=== PATIENT | male | born 1950 | race Caucasian/White ===

== ENCOUNTER 2019-12-05 16:58 | Inpatient (IN) | payer MEDICARE, OTHER, SELFPAY ==
[2019-12-05] VITALS (18 sets, daily range): BP systolic 115–222; BP diastolic 83–145; PULSE 105–151; RESP 20–31; TEMP 36.5–38.3; O2SAT 92–98
--- NOTE | ~2019-12-05 | XR_ITS ---
EXAMINATION: XR lumbar puncture diagnostic DATE: 12/07/2019 15:41 INDICATION: Altered mental status. Fever. TECHNIQUE: A timeout was performed to verify the patient's name, date of , and procedure to be performed. The skin overlying the L2-L3 level was prepped and draped in usual sterile fashion. Sub cutaneous 1% lidocaine was used for local anesthesia. A 20 gauge spinal needle was advanced under fl uoroscopic guidance. The needle was removed and the entry site was cleaned and dressed. There were n o immediate complications. Fluoroscopy exposure time was 0.0 minutes. The total number of images was 1. FINDINGS: Real-time fluoroscopy demonstrates the needle at the L2-L3 level. The opening pressure was 14 cm water (Normal range is variably defined as 6-20 cm water and up to 25 cm water in obese patient s. Pressure >25 cm water is one of the modified Dandy criteria for idiopathic intracranial hypertensi on). 14 mL of clear, colorless fluid was collected in 4 tubes. IMPRESSION: 1. Successful fluoro-guided lumbar puncture. Reviewed, dictated and finalized at location A.
--- NOTE | ~2019-12-05 | US_ITS ---
EXAMINATION: US carotid duplex BI DATE: 12/09/2019 15:59 INDICATION: Stroke with speech and language deficit. TECHNIQUE: Grayscale, color Doppler, and pulsed Doppler images of the cervical carotid arteries were obtained. The degree of vessel stenosis is placed in one of the following categories: normal, <50%, 5 0-69%, >=70% but less than near-occlusion, near-occlusion, or total occlusion. Note that percent sten osis relative to normal distal artery lumen diameter is indirectly measured from velocity measurement s as described by Heath, et al. Radiology 2003; 229:340-346. COMPARISON: None. FINDINGS: Cardiac arrhythmias present. RIGHT: The right common carotid artery (CCA) peak systolic velocity (PSV) is 86 cm/s. The right internal car otid artery (ICA) PSV is 61 cm/s. The right ICA end-diastolic velocity (EDV) is 24 cm/s. The right IC A/CCA PSV ratio is 0.7. Grayscale and color Doppler images yield an estimate of <50% diameter reducti on from plaque in the ICA. The external carotid artery (ECA) PSV is 71 cm/s. There is antegrade flow in the right vertebral artery. LEFT: The left CCA PSV is 90 cm/s. The left ICA PSV is 68 cm/s. The left ICA EDV is 32 cm/s. The left ICA/C CA PSV ratio is 0.8. Grayscale and color Doppler images yield an estimate of <50% diameter reduction from plaque in the ICA. The ECA PSV is 59 cm/s. There is antegrade flow in the left vertebral artery. IMPRESSION: 1. <50% stenosis in the right internal carotid artery. 2. <50% stenosis in the left internal carotid artery. Reviewed, dictated and finalized at location B.
--- NOTE | ~2019-12-05 | MR_ITS ---
EXAMINATION: MR brain/brain stem wo con DATE: 12/06/2019 15:33 INDICATION: Altered mental status. TECHNIQUE: Magnetic resonance imaging (MRI) of the brain and brainstem was performed without intraven ous contrast. Sequences included sagittal and axial T1-weighted FSE, axial diffusion-weighted FS EPI, axial T2*-weighted GRE, and axial T2-weighted Propeller. The patient was combative and further imagi ng could not be performed. Apparent diffusion coefficient (ADC) maps were created. COMPARISON: Head CT 12/05/2019 FINDINGS: Motion artifact is noted. There are old infarcts involving the bilateral thalami, bilateral basal ganglia, and yoanna. There are acute infarcts involving the posterior left frontal lobe and left temporal occipital region. There are scattered areas of nonspecific increased T2-weighted signal int ensity in the cerebral white matter. There is no intracranial hemorrhage or abnormal mass lesion. The re is mild ex vacuo dilatation of body of right lateral ventricle. The orbits are normal. The mastoid air cells are normal. IMPRESSION: 1. Acute infarcts involving the posterior left frontal lobe and left temporal occipital region. Sensi tivity and specificity are decreased by motion artifact. 2. Old infarcts involving the bilateral thalami, bilateral basal ganglia, and yoanna. 3. Mild nonspecific cerebral white matter disease, which likely represents chronic small vessel ische robbin disease. Reviewed, dictated and finalized at location A. IMPRESSION: 1. Acute infarcts involving the posterior left frontal lobe and left temporal o ccipital region. Sensitivity and specificity are decreased by motion artifact. 2. Old infarcts involving the bilateral thalami, bilateral basal ganglia, and p ons. 3. Mild nonspecific cerebral white matter disease, which likely represents breeding technician jyoti small vessel ischemic disease.
--- NOTE | ~2019-12-05 | XR_ITS ---
XR chest PICC line DATE: 12/06/2019 16:28 INDICATION: PICC line placement TECHNIQUE: Portable AP chest 12/06/2019 at 1617 hours COMPARISON: 12/05/2019 portable AP chest FINDINGS: Right upper extremity PIC catheter tip overlies the proximal superior vena cava. No pneumot horax. There are infiltrates and/atelectasis primarily in the lower lung zones. Aortic calcification. Evaluation is limited due to rotation of patient. IMPRESSION: Right upper extremity PIC catheter tip overlying proximal superior vena cava Reviewed, dictated and finalized at Location A. Reviewed, dictated and finalized at location A.
--- NOTE | ~2019-12-05 | CT_ITS ---
EXAMINATION: CT brain wo con DATE: 12/05/2019 17:44 INDICATION: Altered mental status TECHNIQUE: Computed tomography (CT) of the head was performed without intravenous contrast. The mA wa s adjusted according to patient size. Iterative reconstruction technique was employed. Exam dose: 68 1.00 mGy-cm total exam DLP. COMPARISON: None FINDINGS: There are right basal ganglia and periventricular chronic lacunar infarcts. There is cerebral atherosclerosis and chronic small vessel ischemic changes of the periventricular wh ite matter. No intracranial mass lesion or hemorrhage or recent cerebrovascular accident is evident. No midline shift or mass effect. No subdural or epidural hematoma. No fracture or bone destruction of the cranial vault. Included paranasal sinuses and mastoid air mitul ls are normally aerated. IMPRESSION: Cerebral atherosclerosis and chronic small vessel ischemic changes of the cerebral white matter Chronic right basal ganglia and periventricular lacunar infarcts Reviewed, dictated and finalized at Location A. Reviewed, dictated and finalized at location A.
--- NOTE | ~2019-12-05 | XR_ITS ---
XR chest 1V portable DATE: 12/05/2019 18:49 INDICATION: Transient alteration of awareness. Hypoglycemia. TECHNIQUE: Portable AP chest on 12/05/2019 at 1843 hours COMPARISON: 11/15/2018 PA and lateral chest FINDINGS: Cardiomegaly. Aortic calcification and ectasia. There is pulmonary vascular congestion. Chronic mild left pleural thickening. Chronic left costophrenic angle blunting. There is suggestion of mild left retrocardiac infiltrate and/atelectasis; no interval pulmonary infil trate or consolidation is evident. IMPRESSION: Mild left lower lobe infiltrate or atelectasis is suggested Cardiomegaly Aortic atherosclerosis Reviewed, dictated and finalized at location A.
[2019-12-05 17:04] LABS: Glucose Point of Care > 500 (65-105)
--- NOTE | 2019-12-05 17:05 | ECG_ITS ---
Measurements Intervals [place] Rate: 125 P: IA: 0 QRS: -10 QRSD: 118 T: 131 QT: 314 QTc: 453 Interpretive Statements ATRIAL FIBRILLATION WITH RAPID VENTRICULAR RESPONSE INTRAVENTRICULAR CONDUCTION DELAY VOLTAGE CRITERIA FOR LVH BORDERLINE ST-T WAVE ABNORMALITY- LAT/HIGH LAT LEADS ABNORMAL ECG Electronically Signed On 12-06-2019 7:00:35 CDT by Jorge Mazariegos D.O.
--- NOTE | 2019-12-05 17:07 | ED.AMS ---
HPI - Altered Mental Status General Chief Complaint: Altered Mental Status Stated Complaint: ams Time Seen by Provider: 12/05/19 17:07 Source: patient and EMS Mode of arrival: EMS Limitations: altered mental status History of Present Illness HPI narrative: Patient is a 69-year-old male with a history of atrial fibrillation, recent ablation at [facility], CHF, nephrolithiasis, who presents for evaluation of altered mental status. History is provided only by the as the patient is not altered to person, place, and or to time. Patient is not able to follow any simple commands. Patient's states that he did not eat or drink anything this morning, was not conversing with her, she thought perhaps he was tired, and he went to lay down to take a nap. When she checked on him approximately 1 hour later, he was sitting on the floor of the steps had urinated on himself, and was unable to stand. She is finally able to help him to stand up to get him to a chair in the office, because he was not responding appropriately to her, not able to speak to her, she called EMS. Glucose reading was high for EMS. Per patient's , he has no history of diabetes. Related Data Home Medications Medication Instructions Recorded Confirmed apixaban [Eliquis] 5 mg PO BID 12/05/19 benazepril 40 mg PO DAILY 12/05/19 carvedilol 25 mg PO BID 12/05/19 furosemide 40 mg PO DAILY 12/05/19 Allergies Allergy/AdvReac Type Severity Reaction Status Date / Time oxycodone Allergy Mild Unknown Verified 12/05/19 17:03 tramadol Allergy Mild Unknown Verified 12/05/19 17:03 Review of Systems Review of Systems: ROS unobtainable: Yes unobtainable due to mental status PMFSH Past Medical History Medical History Atrial fibrillation Cataracts, bilateral Hypertension Nephrolithiasis Surgical History Surgical History H/O cardiac radiofrequency ablation Family History Family History (Updated 12/05/19 @ 21:37 by Emanuel Austin MD) Mother Diabetes mellitus Exam Narrative: Exam Narrative: GENERAL: Eyes open on bed, tremulous HEAD: Normocephalic, atraumatic. EYES: 2+ PERRLA and EOMI. Not able to track. Not able to assess extraocular movements. ENT: Nares clear, no rhinorrhea or epistaxis. Mucous membranes dry NECK: Supple. CHEST: Tachypneic, coarse breath sounds bilaterally HEART: Tachycardic rate, regular rhythm ABDOMEN:Non distended, no grimace with palpation EXTREMITIES: Normal range of motion. No pitting edema. SKIN: Warm, dry, no rash. NEURO: Patient has spontaneous movement of the upper and lower extremities. Is not able to follow any simple commands. No noticeable facial droop. Grimace does appear symmetric. Not able to assess upper or lower extremity strength. Patient has no clonus. No hyperreflexia. Course Vital Signs Vital signs: Vital Signs Temperature 36.5 C 12/05/19 16:53 Pulse Rate 105 H 12/05/19 16:53 Respiratory Rate 20 12/05/19 16:53 Blood Pressure 222/145 H 12/05/19 16:53 Pulse Oximetry 95 12/05/19 16:53 Temperature 36.9 C 12/05/19 21:46 Pulse Rate 121 H 12/05/19 21:46 Respiratory Rate 26 H 12/05/19 21:46 Blood Pressure 191/89 H 12/05/19 21:46 Pulse Oximetry 97 12/05/19 21:46 MDM - Altered Mental Status MDM Narrative Medical decision making narrative: Patient presented for evaluation of altered mental status, found to have elevated glucose readings by EMS. No known history of diabetes per family at bedside. At time of assessment, patient is awake, delirious. He is protecting his airway. He is tachycardic and tachypneic. No severe respiratory distress. Patient is dehydrated appearing. Tocometer also rates as high. Very concerning for HHS presentation here. IV access obtained, labs and blood cultures were drawn. Patient was given a 30 mL/kg fluid bolus which is over
[2019-12-05] MEDS: SODIUM CHLORIDE 0.9% IV 1,000 ML 999 ML IV CONT ×2 (17:22→18:00)
[2019-12-05 17:40] LABS: Basophils Absolute Auto 0.1 K/mm3 (0.0-0.1); Basophils Percent Auto 0.7 % (0.2-1.2); Hematocrit 48.4 % (42.0-52.0); Hemoglobin 16.8 g/dL (14.0-18.0); Immature Granulocyte Absolute 0.05 K/mm3 (0.00-0.031); Immature Granulocyte Percent A 0.5 % (0-0.5); Lymphocytes Absolute Auto 0.51 K/mm3 (0.9-3.2); Lymphocytes Percent Auto 5.5 % (18.3-44.2); Mean Corpuscular HGB Conc 34.7 g/dl (32-36); Mean Corpuscular Hemoglobin 31.1 pg (26-34); Mean Corpuscular Volume 89.6 fl (80-100); Mean Platelet Volume 11.9 fl (7.4-10.4); Monocytes Absolute Auto 0.5 K/mm3 (0.1-0.6); Monocytes Percent Auto 5.7 % (2.6-8.5); Neutrophils Absolute Auto 8.1 K/mm3 (1.3-6.7); Neutrophils Percent Auto 87.6 % (45.5-73.1); Platelet Count Result 200 k/mm3 (150-375); Red Cell Distribution Width 14.3 % (11.5-14.5); White Blood Count 9.2 K/mm3 (4.5-10.0)
[2019-12-05 17:48] LABS: INR 1.1; Prothrombin Time 13.9 Seconds (11.1-14.7)
[2019-12-05 17:49] LABS: Partial Thromboplastin Time 21.3 SECONDS (22.3-36.8)
[2019-12-05] MEDS: LACTATED RINGERS 1,000 ML 999 ML IV CONT (18:00)
[2019-12-05 18:11] LABS: Lactic Acid Reflex 5.1 mmol/L (0.7-2.1)
[2019-12-05 18:16] LABS: NT Pro B Type Natriuretic Pept 2850 PG/ML (5-100); Troponin I < 0.012 ng/mL (0.000-0.034)
[2019-12-05 18:19] LABS: Beta-Hydroxybutyrate/Acetoacetate 0.34 mmol/L (0.02-0.27)
[2019-12-05 18:30] LABS: Alveolar/Arterial O2 Gradient 42.8 mmHg; Base Excess ABG -6.7 mEq/l (+/-2.0); Carboxyhemoglobin 2.1 % THb (0-2.0); Fractional Inspired Oxygen 21 %; HCO3 ABG 16.3 mEq/l (22.0-26.0); Methemoglobin ABG 0.1 %THb (0-1.5); Oxygen Content ABG 20.8 %vol (16.0-22.0); Oxygen Saturation ABG 95.3 % (95.0-100.0); Oxyhemoglobin 92.3 % THb (90.0-100.0); PCO2 ABG 26.9 mmHg (35.0-45.0); PO2 ABG 74.7 mmHg (80.0-100.0); PO2 FiO2 Ratio Arterial Blood 3.56 %; Reduced Hemoglobin 5.5 %THb (0-5.0); pH ABG 7.399 (7.350-7.450)
[2019-12-05 18:32] LABS: Device ROOM AIR; Modified Allen's Test Pass; Site Drawn LEFT RADIAL
[2019-12-05 18:40] LABS: Add Urine Microscopic? YES; Appearance Urine Clear (Clear); Bilirubin Urine Negative (Negative); Blood Urine 2+ (Negative); Color Urine Straw (Yellow); Glucose Urine UA 3+ mg/dL (Negative); Ketones Urine Negative (Negative); Leukocyte Esterase Ur Negative LEU/UL (Negative); Nitrate Urine Negative (Negative); Protein Urine 2+ mg/dL (Negative); RBC Urine 21-50 /hpf (0-2); Specific Grav Ur 1.027 (1.001-1.035); Urobilinogen Urine Negative mg/dL (<2.0); WBC Urine 0-3 /hpf
[2019-12-05 18:57] LABS: Alanine Aminotransferase 35 U/L (4-50); Albumin Level 4.8 g/dL (3.5-5.1); Alkaline Phosphatase 174 U/L (38-126); Anion Gap 17 mmol/L (8-16); Aspartate Amino Transferase 23 U/L (17-59); Bilirubin,Total 1.8 mg/dL (0.2-1.3); Blood Urea Nitrogen 26 mg/dL (9-20); Calcium 9.4 mg/dL (8.4-10.2); Carbon Dioxide 23 mmol/L (22-30); Chloride 94 mmol/L (98-107); Estimated CRCL calculation 51 ml/min; Estimated Glomerular Filt Rate 43; Magnesium 2.8 mg/dL (1.6-2.3); Phosphorus 2.6 mg/dL (2.5-4.5); Sodium 134 mmol/L (137-145)
[2019-12-05 19:04] LABS: Glucose Point of Care > 500 (65-105)
[2019-12-05] MEDS: INSULIN HUMAN REGULAR (*BKC) 100 UNITS/ML 11 UNITS IV PUSH (19:24)
[2019-12-05 19:35] LABS: Glucose 1168 mg/dL (75-110)
[2019-12-05] MEDS: INSULIN HUMAN REGULAR (*BKC) 100 UNITS in SODIUM CHLORIDE 0.9% IV 99 ML 8.8 UNITS IV CONT (19:49)
[2019-12-05] MEDS: METOPROLOL TARTRATE INJ 5 MG/5 ML VIAL IV PUSH (19:56)
[2019-12-05] MEDS: niCARdipine 20 MG/200 ML 20 MG/200 ML BAG 50 MG IV CONT (20:15)
[2019-12-05 20:16] LABS: Glucose Point of Care > 500 (65-105)
[2019-12-05 20:36] LABS: Reflex Lactic Acid Yes or No Add Lactic
--- NOTE | 2019-12-05 21:29 | PM.IMHP ---
H&P: HPI History of Present Illness Date/Time: 12/05/19 21:29 Chief complaint: HHS, Malignant hypertension, AMS, Sepsis Narrative: This is a 69-year-old male with known history of atrial fibrillation status post cardiac ablation a few weeks ago on chronic anticoagulation, congestive heart failure, and hypertension who presented to the hospital after being found to have altered mental status by his today. The patient's who is at bedside states that the patient was very quiet today and did not want to eat breakfast this morning. She mentions that it is common for him to take naps in the afternoon so when he went to lay down she thought that was normal. When she went to check on him she found him sitting on the steps, diaphoretic, and had urinated on himself. The patient was not responding to her appropriately or answering questions. EMS was called and the patient was brought to the hospital and found to be severely hyperglycemic. The patient has no previous history of diabetes mellitus. Routine labs were obtained which demonstrated a blood glucose of 1168. Lactic acid came back at 5.1. The patient was also found to be in rapid atrial fibrillation with a heart rate in the 130s to 140s. he was also found to have severe hypertension with systolic blood pressures in the 220s over 130s. The patient was started on a Cardene drip for his severely elevated blood pressure and cardiology was consulted. Patient was given Lopressor IV for his atrial fibrillation with RVR. He was also treated with IV insulin and a 30 cc/kilogram normal saline bolus. The patient also received wide-spectrum antibiotics including vancomycin and cefepime as he met sepsis criteria and his lactic acid was 5.1. Head CT was performed which did not demonstrate any acute intracranial pathology. on my encounter with the patient he is obtain ended but arousable and clearly encephalopathic. He is not able to answer any of my questions at this time. Source of history is from his who is at bedside. On further questioning she also denies that the patient has had any recent fevers, cough, chest pain, palpitations, abdominal pain, nausea, vomiting, diarrhea, rectal bleeding, or other symptoms. Commercial Relief Driver has been consulted by ER provider. Review of Systems Review of Systems: ROS unobtainable: Yes unobtainable due to medical condition and unobtainable due to mental status [facility] Past Medical History Medical History Atrial fibrillation Cataracts, bilateral Hypertension Nephrolithiasis Surgical History Surgical History H/O cardiac radiofrequency ablation Family History Family History Mother Diabetes mellitus Social History Social History Smoking status: Unknown if ever smoked Meds Home Medications and Allergies Home Medications Medication Instructions Recorded Confirmed Type apixaban [Eliquis] 5 mg PO BID 12/05/19 History benazepril 40 mg PO DAILY 12/05/19 History carvedilol 25 mg PO BID 12/05/19 History furosemide 40 mg PO DAILY 12/05/19 History Allergies Allergy/AdvReac Type Severity Reaction Status Date / Time oxycodone Allergy Mild Unknown Verified 12/05/19 17:03 tramadol Allergy Mild Unknown Verified 12/05/19 17:03 Vital Signs Vital Signs - 24 hr 12/05/19 16:53 12/05/19 17:22 12/05/19 20:15 Temperature 36.5 C Pulse Rate 105 H 114 H 111 H Respiratory Rate 20 28 H Blood Pressure 222/145 H 188/135 H 200/124 H Pulse Oximetry 95 92 12/05/19 20:31 12/05/19 20:35 Temperature 37.2 C Pulse Rate 123 H 120 H Respiratory Rate 30 H Blood Pressure 168/84 H 168/84 H Pulse Oximetry 96 Exam Const: General: ill appearing acutely and patient obtunded Nutritional Appearance: well nourished [place]
--- NOTE | 2019-12-05 21:37 | ADMGEN ---
This patient, Jose A Rodarte, was admitted to Intensive Care Unit-6. Patient/family oriented to hospital policies and general routines including ID bracelet, bed and alarms, visiting hours, pain management, procedures, bathroom and other care routines, personal items, smoking policy, room service/diet, and visiting hours. Valuables list has been completed. Information on how to activate the Rapid Response Team has been discussed. Patient/Family are encouraged to report perceived risks to care and to ask questions if they do not understand what they are told or what they should do.
[2019-12-05] MEDS: SODIUM CHLORIDE 0.9% IV 1,000 ML 150 ML IV CONT (22:05)
[2019-12-05 22:37] LABS: Alveolar/Arterial O2 Gradient 49.3 mmHg; Base Excess ABG -4.9 mEq/l (+/-2.0); Device ROOM AIR; Fractional Inspired Oxygen 21 %; HCO3 ABG 17.1 mEq/l (22.0-26.0); Modified Allen's Test Pass; Oxygen Content ABG 21.1 %vol (16.0-22.0); Oxyhemoglobin 93.3 % THb (90.0-100.0); PCO2 ABG 25.6 mmHg (35.0-45.0); PO2 ABG 69.8 mmHg (80.0-100.0); PO2 FiO2 Ratio Arterial Blood 3.32 %; Site Drawn LEFT RADIAL; Total Hemoglobin 16.1 g/dL (12.0-18.0); pH ABG 7.443 (7.350-7.450)
[2019-12-05 23:29] LABS: Hemoglobin A1C 11.1 % (<5.7)
[2019-12-05 23:34] LABS: Lactic Acid 5.8 mmol/L (0.7-2.1)
[2019-12-05 23:35] LABS: Anion Gap 16 mmol/L (8-16); Blood Urea Nitrogen 18 mg/dL (9-20); Calcium 9.2 mg/dL (8.4-10.2); Carbon Dioxide 21 mmol/L (22-30); Chloride 109 mmol/L (98-107); Estimated CRCL calculation 58 ml/min; Estimated Glomerular Filt Rate 50; Glucose 518 mg/dL (75-110); Potassium 3.7 mmol/L (3.4-5.0); Sodium 146 mmol/L (137-145)
[2019-12-05 23:41] LABS: Troponin I 0.044 ng/mL (0.000-0.034)
[2019-12-05 23:48] LABS: Glucose Point of Care > 500 (65-105)
[2019-12-05 23:48] LABS: Glucose Point of Care > 500 (65-105)
[2019-12-06] VITALS (42 sets, daily range): BP systolic 104–202; BP diastolic 76–140; PULSE 73–145; RESP 12–31; TEMP 36.6–38.7; O2SAT 93–98; BMI 33.0
[2019-12-06 00:29] LABS: Glucose Point of Care 446 (65-105)
[2019-12-06] MEDS: AMIODARONE 150 MG/D5W 100 ML 150 MG/100 ML BAG 600 MG IV CONT (01:17)
[2019-12-06] MEDS: AMIODARONE 360 MG/D5W 200 ML 360 MG/200 ML BAG 33.3 MG IV CONT (01:18)
[2019-12-06 02:40] LABS: Glucose Point of Care 262 (65-105)
[2019-12-06 02:40] LABS: Glucose Point of Care 353 (65-105)
[2019-12-06] MEDS: INSULIN HUMAN REGULAR (*BKC) 100 UNITS in SODIUM CHLORIDE 0.9% IV 99 ML 14.1 UNITS IV CONT (02:42)
[2019-12-06 02:58] LABS: Anion Gap 11 mmol/L (8-16); Blood Urea Nitrogen 16 mg/dL (9-20); Calcium 9.2 mg/dL (8.4-10.2); Carbon Dioxide 25 mmol/L (22-30); Chloride 111 mmol/L (98-107); Estimated CRCL calculation 62 ml/min; Estimated Glomerular Filt Rate 55; Glucose 239 mg/dL (75-110); Potassium 3.1 mmol/L (3.4-5.0); Sodium 147 mmol/L (137-145)
[2019-12-06] MEDS: KCL 20 MEQ/D5/0.45% SOD CHL 1,000 ML 150 ML IV CONT (03:19)
--- NOTE | 2019-12-06 04:12 | PC.NURSE ---
Pt restless, pulling at cords, IVs, davis, attempting to sit himself up in bed and attempting to put legs over side of bed. Pt has been redirected by this RN several times. Pt is not alert and oriented at this time. Unable to be redirected. contacted for restraint order.
[2019-12-06 06:17] LABS: Basophils Absolute Auto 0.1 K/mm3 (0.0-0.1); Basophils Percent Auto 0.4 % (0.2-1.2); Hematocrit 42.7 % (42.0-52.0); Hemoglobin 15.4 g/dL (14.0-18.0); Immature Granulocyte Absolute 0.05 K/mm3 (0.00-0.031); Immature Granulocyte Percent A 0.4 % (0-0.5); Lymphocytes Absolute Auto 1.04 K/mm3 (0.9-3.2); Lymphocytes Percent Auto 7.5 % (18.3-44.2); Mean Corpuscular HGB Conc 36.1 g/dl (32-36); Mean Corpuscular Hemoglobin 31.3 pg (26-34); Mean Corpuscular Volume 86.8 fl (80-100); Mean Platelet Volume 11.3 fl (7.4-10.4); Monocytes Absolute Auto 1.3 K/mm3 (0.1-0.6); Monocytes Percent Auto 9.5 % (2.6-8.5); Neutrophils Absolute Auto 11.4 K/mm3 (1.3-6.7); Neutrophils Percent Auto 82.2 % (45.5-73.1); Platelet Count Result 192 k/mm3 (150-375); Red Blood Count 4.92 M/mm3 (4.6-6.20); Red Cell Distribution Width 14.1 % (11.5-14.5); White Blood Count 13.8 K/mm3 (4.5-10.0)
[2019-12-06 06:29] LABS: Lactic Acid Reflex 2.7 mmol/L (0.7-2.1)
[2019-12-06 06:30] LABS: Anion Gap 11 mmol/L (8-16); Blood Urea Nitrogen 15 mg/dL (9-20); Calcium 8.8 mg/dL (8.4-10.2); Carbon Dioxide 22 mmol/L (22-30); Chloride 114 mmol/L (98-107); Estimated CRCL calculation 61 ml/min; Estimated Glomerular Filt Rate 55; Glucose 127 mg/dL (75-110); Potassium 3.2 mmol/L (3.4-5.0); Sodium 147 mmol/L (137-145)
[2019-12-06] MEDS: AMIODARONE 360 MG/D5W 200 ML 360 MG/200 ML BAG 16.7 MG IV CONT ×2 (06:56→17:44)
[2019-12-06 07:07] LABS: Glucose Point of Care 147 (65-105)
[2019-12-06 07:07] LABS: Glucose Point of Care 200 (65-105)
[2019-12-06 07:07] LABS: Glucose Point of Care 218 (65-105)
[2019-12-06 07:07] LABS: Glucose Point of Care 220 (65-105)
[2019-12-06 07:07] LABS: Glucose Point of Care 182 (65-105)
[2019-12-06 07:31] LABS: Bilirubin Indirect 0.8 mg/dL (0-1.1)
--- NOTE | 2019-12-06 09:10 | WPDCNINT ---
Assessment and Plan Assessment and plan (1) Acute encephalopathy: Code(s): G93.40 - Encephalopathy, unspecified Status: Acute Assessment and Plan: most likely multifactorial and no clear etiology at this time. multiple possible diagnosis like DKA, sepsis, PRES head CT was negative on presentation although patient on clinical exam does not appear to have meningitis but the fact that he is febrile and has altered mental status exam can be unreliable, I will empirically treat him with antibiotics. check MRI LP ordered by radiology empiric vancomycin Rocephin and ampicillin (2) DKA (diabetic ketoacidoses): Qualifiers: Diabetes mellitus complication detail: without coma Diabetes mellitus type: type 2 Qualified Code(s): E11.10 - Type 2 diabetes mellitus with ketoacidosis without coma Code(s): E11.10 - Type 2 diabetes mellitus with ketoacidosis without coma Status: Acute Assessment and Plan: patient on insulin infusion and anion gap has closed. Is on D5 half-normal saline I will stop the dextrose solution and continues insulin drip at this time patient not ready to transition to subcutaneous insulin as he is on a high rate serial labs (3) Hypertensive emergency: Code(s): I16.1 - Hypertensive emergency Status: Acute Assessment and Plan: currently on Cardene infusion I will switch him to diltiazem to control heart rate and blood pressure this same time (4) Atrial fibrillation with rapid ventricular response: Code(s): I48.91 - Unspecified atrial fibrillation Status: Acute Assessment and Plan: currently on amiodarone infusion will add Cardizem drip Eliquis is on hold because of potential LP (5) Dehydration: Code(s): E86.0 - Dehydration Status: Acute Assessment and Plan: continue IV hydration but will decrease the rate (6) Severe sepsis: Code(s): A41.9 - Sepsis, unspecified organism; R65.20 - Severe sepsis without septic shock Status: Acute Assessment and Plan: no clear source at this time pneumonia versus meningitis or lactic acidosis could be from dehydration and hypovolemia check cultures continue empiric antibiotics (7) Suspected 2019 novel coronavirus infection: Code(s): Z20.828 - Contact with and (suspected) exposure to other viral communicable diseases Status: Acute Assessment and Plan: COVID-19 suspected. SARS-CoV-2 PCR sent and results pending Patient is in Airborne, Droplet and Contact Isolation Additional Plan DVT prophylaxis - subcu Lovenox Nutrition - NPO Code Status - patient unable to participate. Full Code documented in chart Discussed with Dr. Urban Total Critical Care Time - 40 minutes Due to a high probability of clinically significant, life threatening deterioration, the patient required my highest level of preparedness to intervene emergently and I personally spent this critical care time directly and personally managing the patient. This critical care time included obtaining a history; examining the patient; pulse oximetry; ordering and review of studies; arranging urgent treatment with development of a management plan; evaluation of patient's response to treatment; frequent reassessment; and discussions with other providers. It was exclusive of separately billable procedures and treating other patients and teaching time. Please see Assessment and Plan section and the rest of the note for further information on patient assessment and treatment Service Technician Consult Note Consult date: 12/06/19 Time Seen: 08:00 HPI: Jose A Rodarte is a 69 year old male with past medical history of atrial fibrillation status post cardiac ablation a few weeks ago on chronic anticoagulation, congestive heart failure, and hypertension who presented to the hospital after being found to have altered mental status by his today. The patient's told the
[2019-12-06 09:15] LABS: Reflex Lactic Acid Yes or No Add Lactic
--- NOTE | 2019-12-06 09:44 | PM.CNCAR ---
Assessment and Plan Assessment and plan (1) Atrial fibrillation with rapid ventricular response: Code(s): I48.91 - Unspecified atrial fibrillation Status: Acute Assessment and Plan: history of persistent recurrent atrial fibrillation status post PVI ablation January 2019 now with recurrence of AFib with RVR in setting of presumed new diagnosis diabetes mellitus DKA, sepsis, hypertensive urgency, febrile and encephalopathy. Discussed options with Critical Care. Continue Amiodarone gtt for now, additional HR control with IV Metoprolol. 5mg IV q6hr. Hold off on Dilt gtt unless BP anticipated to be adequately controlled and HR refractory. Pt has previously failed Sotalol and Flecainide necessitating PVI ablation. 2D Echo when HR better controlled to assess LV function, valve pathology, pulmonary pressures. (2) Hypertensive emergency: Code(s): I16.1 - Hypertensive emergency Status: Acute Assessment and Plan: Controlled on Nicardipine gtt. Wean off as BP permits, but anticipate will require at least low dose for now. (3) Acute encephalopathy: Code(s): G93.40 - Encephalopathy, unspecified Status: Acute Assessment and Plan: Per Critical Care. Caution with LP on anticoagulation, allow sufficient time to reduce bleeding risk. Continue supportive (4) Elevated troponin: Code(s): R77.8 - Other specified abnormalities of plasma proteins Status: Acute Assessment and Plan: No documented history of CAD. Very likely Type II infarction (non-[place] troponin elevation) in setting of fever, DKA, hypertensive urgency, underlying CKD, and A.fib with RVR. No evidence thus far for acute plaque rupture/ACS. (5) DKA (diabetic ketoacidoses): Qualifiers: Diabetes mellitus complication detail: without coma Diabetes mellitus type: type 2 Qualified Code(s): E11.10 - Type 2 diabetes mellitus with ketoacidosis without coma Code(s): E11.10 - Type 2 diabetes mellitus with ketoacidosis without coma Status: Acute Assessment and Plan: Per Critical Care. (6) Severe sepsis: Code(s): A41.9 - Sepsis, unspecified organism; R65.20 - Severe sepsis without septic shock Status: Acute Assessment and Plan: As above, IVF, IV ABx, cultures. COVID pending. On isolation. History of Present Illness History of Present Illness Consult date/time: Date of service: 12/06/19 09:44 Cardiology consultation at the request of Dr. Catalan of the [place] [facility] for our opinion regarding atrial fibrillation with RVR. Requesting physician: Rebecca Catalan MD Consult reason: atrial fibrillation Reason For Visit: HHS, Malignant hypertension, AMS, Sepsis Narrative: Patient is a 69-year-old white male with a past medical history significant for atrial fibrillation with rapid ventricular response, prior history of cardioversion having previously failed sotalol and flecainide requiring amiodarone for maintenance, on Eliquis, status post PVI ablation for atrial fibrillation January 30 2019 at [facility] which was successful in maintaining sinus rhythm. Patient has a history of remote cardiomyopathy with improvement in EF 65%, history of decompensated diastolic heart failure with atrial fibrillation with RVR, and hypertension who was brought to the ER by the patient's for altered mental status. Per electronic medical record she reported patient was very quiet day presentation, not eating and sleeping quite a bit. When she went to check on him she found him sitting on the steps, diaphoretic and incontinent of urine. He was not responding appropriately to her questions and called EMS. Upon his arrival was found to be markedly hyperglycemic blood sugar of 1168, lactic acid 5.1 hypertensive urgency with blood pressures 220/1 30s and in atrial fibrillation with rapid ventricular response heart rate 130 to 140s. He was given 1 IV dose metoprolol IV 5 mg. Given his mar
[2019-12-06] MEDS: SODIUM CHLORIDE 0.45% 1,000 ML 75 ML IV CONT ×2 (10:02→23:45)
[2019-12-06] MEDS: METOPROLOL TARTRATE INJ 5 MG/5 ML VIAL IV PUSH ×2 (10:10→22:14)
[2019-12-06] MEDS: AMPICILLIN 2 GM/NS 100 ML 2 GM/100 ML BAG IVPB ×4 (10:30→22:25)
[2019-12-06 10:51] LABS: Lactic Acid 3.6 mmol/L (0.7-2.1)
[2019-12-06] MEDS: INSULIN HUMAN REGULAR (*BKC) 100 UNITS in SODIUM CHLORIDE 0.9% IV 99 ML 13.2 UNITS IV CONT (10:59)
[2019-12-06 11:04] LABS: Glucose Point of Care 164 (65-105)
[2019-12-06 11:04] LABS: Glucose Point of Care 180 (65-105)
[2019-12-06 11:04] LABS: Glucose Point of Care 138 (65-105)
[2019-12-06 11:21] LABS: Anion Gap 13 mmol/L (8-16); Blood Urea Nitrogen 13 mg/dL (9-20); Calcium 8.3 mg/dL (8.4-10.2); Carbon Dioxide 21 mmol/L (22-30); Chloride 107 mmol/L (98-107); Estimated CRCL calculation 66 ml/min; Estimated Glomerular Filt Rate 60; Glucose 226 mg/dL (75-110); Potassium 3.3 mmol/L (3.4-5.0); Sodium 141 mmol/L (137-145)
[2019-12-06 11:50] LABS: Glucose Point of Care 227 (65-105)
--- NOTE | 2019-12-06 13:04 | WPDNEURCNPN ---
Assessment and Plan Assessment and plan (1) Severe sepsis: Code(s): A41.9 - Sepsis, unspecified organism; R65.20 - Severe sepsis without septic shock Status: Acute (2) Atrial fibrillation with rapid ventricular response: Code(s): I48.91 - Unspecified atrial fibrillation Status: Acute (3) Hypertensive emergency: Code(s): I16.1 - Hypertensive emergency Status: Acute Additional Plan METABOLIC ENCEPHALOPATHY WITH THE POSSIBILITY OF THE PRESS WILL OBTAIN THE EEG AND THEN CONSIDER ACCORDINGLY Consult date: 12/06/19 Time Seen: 13:00 HPI: Jose A Rodarte is a 69 year old male HAS BEEN ADMITTED TO THE HOSPITAL FOR MALIGNANT HYPERTENSION WITH ACUTE MENTAL STATUS CHANGES AND SEPSIS IN ADDITION TO THE ONGOING HISTORY OF 1. ATRIAL FIBRILLATION FOR WHICH HE HAS UNDERGONE CARDIAC ABLATION FEW WEEKS AGO AND 2. HISTORY OF CHRONIC ANTICOAGULATION THERAPY 3. CONGESTIVE HEART FAILURE 4. HYPERTENSION PER THE INFORMATION AVAILABLE FROM THE PATIENT'S ON THE DAY OF ADMISSION HE WAS VERY QUIET SHE FOUND HIM SITTING ON THE STEPS DIAPHORETIC AND ALSO OBSERVATION OF URINATION ON HIMSELF HE WAS NOT RESPONDING APPROPRIATELY EMS WERE CALLED TO THE SCENE IN THE EMERGENCY ROOM HE WAS SEVERELY HYPERGLYCEMIC THOUGH HE HAD NO HISTORY OF DIABETES MELLITUS IN THE PAST HE WAS NOTED TO HAVE BLOOD SUGAR OF 1168 WITH LACTIC ACID OF 5.1, IN RAPID ATRIAL FIBRILLATION WITH HEART RATE OF 130S TO 140S ALONG WITH THE HYPERTENSION AND THE BLOOD PRESSURE OF 220/130 HE IMMEDIATELY RECEIVED CARDENE DRIP LOPRESSOR INTRAVENOUSLY FOR ATRIAL FIBRILLATION INSULIN AND BROAD-SPECTRUM ANTIBIOTICS. THE CT SCAN OF THE BRAIN DOCUMENTED CHRONIC SMALL-VESSEL ISCHEMIC CHANGES OF THE WHITE MATTER IN ADDITION TO THE CHRONIC RIGHT BASAL GANGLIAR AND PERIVENTRICULAR LACUNAR INFARCTS AT THIS STAGE HE IS RECEIVING VANCOMYCIN INSULIN AMIODARONE AMPICILLIN CEFTRIAXONE AND PRECEDEX. QUESTION IS RAISED REGARDING THE POSSIBILITY OF POSTERIOR REVERSIBLE ISCHEMIC ENCEPHALOPATHY AND SPINAL TAP Review of Systems Review of Systems: All systems reviewed & are unremarkable except as noted in HPI and below PMFSH Past Medical History Medical History Atrial fibrillation Cataracts, bilateral Hypertension Nephrolithiasis Surgical History Surgical History H/O cardiac radiofrequency ablation Family History Family History Mother Diabetes mellitus Social History Social History Smoking status: Unknown if ever smoked Meds Home Medications and Allergies Home Medications Medication Instructions Recorded Confirmed Type apixaban [Eliquis] 5 mg PO BID 12/05/19 12/06/19 History benazepril 40 mg PO DAILY 12/05/19 12/06/19 History carvedilol 25 mg PO BID 12/05/19 12/06/19 History furosemide 40 mg PO DAILY 12/05/19 12/06/19 History Allergies Allergy/AdvReac Type Severity Reaction Status Date / Time oxycodone Allergy Mild Unknown Verified 12/05/19 17:03 tramadol Allergy Mild Unknown Verified 12/05/19 17:03 Vital Signs Vital Signs - 24 hr 12/05/19 16:53 12/05/19 17:22 12/05/19 20:15 Temperature 36.5 C Pulse Rate 105 H 114 H 111 H Respiratory Rate 20 28 H Blood Pressure 222/145 H 188/135 H 200/124 H Pulse Oximetry 95 92 12/05/19 20:31 12/05/19 20:35 12/05/19 21:46 Temperature 37.2 C 36.9 C Pulse Rate 123 H 120 H 121 H Respiratory Rate 30 H 26 H Blood Pressure 168/84 H 168/84 H 191/89 H Pulse Oximetry 96 97 12/05/19 21:56 12/05/19 22:00 12/05/19 22:03 Temperature 38.0 C H Pulse Rate 115 H 130 H 135 H Respiratory Rate 31 H Blood Pressure 151/85 H 151/85 H Pulse Oximetry 95 12/05/19 22:24 12/05/19 22:31 12/05/19 22:46 Temperature Pulse Rate 151 H 122 H 117 H Respiratory Rate 28 H 27 H 23 H Blood Pres
[2019-12-06 13:29] LABS: Glucose Point of Care 193 (65-105)
[2019-12-06 16:19] LABS: Glucose Point of Care 125 (65-105)
[2019-12-06 16:57] LABS: Alveolar/Arterial O2 Gradient 49.5 mmHg; Base Excess ABG -1.4 mEq/l (+/-2.0); Device ROOM AIR; Fractional Inspired Oxygen 21 %; HCO3 ABG 21.6 mEq/l (22.0-26.0); Modified Allen's Test Pass; Oxygen Content ABG 18.7 %vol (16.0-22.0); PO2 ABG 61.9 mmHg (80.0-100.0); PO2 FiO2 Ratio Arterial Blood 2.95 %; Site Drawn RIGHT RADIAL; Total Hemoglobin 14.5 g/dL (12.0-18.0); pH ABG 7.448 (7.350-7.450)
[2019-12-06 17:52] LABS: Glucose Point of Care 119 (65-105)
--- NOTE | 2019-12-06 18:03 | PM.IMPN ---
Progress Note: A&P Assessment and Plan (1) Acute encephalopathy: Code(s): G93.40 - Encephalopathy, unspecified Status: Acute Assessment and Plan: Complicated medical problems HTN crisis V meningitis ABG looks good pt pulse oxs is good, pt moving in the room. Continue to monitor I do not think pt needs intubation yet. Continue to monitor apnea spells. (2) Hyperosmolar (nonketotic) coma: Code(s): E11.01 - Type 2 diabetes mellitus with hyperosmolarity with coma Status: Acute Assessment and Plan: The patient appears to have hyperosmolar nonketotic coma (3) Hypertensive emergency: Code(s): I16.1 - Hypertensive emergency Status: Acute Assessment and Plan: Continue Cardene IV drip (4) Atrial fibrillation with rapid ventricular response: Code(s): I48.91 - Unspecified atrial fibrillation Status: Acute Assessment and Plan: The patient has been started on Lopressor IV per Cardiology. (5) Dehydration: Code(s): E86.0 - Dehydration Status: Acute Assessment and Plan: Continue IV hydration and monitor urine output and vital signs closely. (6) Severe sepsis: Code(s): A41.9 - Sepsis, unspecified organism; R65.20 - Severe sepsis without septic shock Status: Acute Assessment and Plan: With tachycardia and elevated lactic acid of 5.1. (7) Hyperbilirubinemia: Code(s): E80.6 - Other disorders of bilirubin metabolism Status: Acute Assessment and Plan: We will check a total and indirect bilirubin in a.m.. (8) Suspected 2019 novel coronavirus infection: Code(s): Z20.828 - Contact with and (suspected) exposure to other viral communicable diseases Status: Acute Assessment and Plan: the patient has been swab for stover virus. Continue droplet isolation. Subjective Date/time seen: 12/06/19 18:03 Interval history: 69-year-old male with known history of atrial fibrillation status post cardiac ablation a few weeks ago on chronic anticoagulation, congestive heart failure, and hypertension who presented to the hospital after being found to have altered mental status by his today. Pt is having episodes of apnea. Covid is pending. Pt admitted for encephalopathy. possible meningitis pt is going to have a spinal tap. Review of Systems Review of Systems: ROS unobtainable: Yes unobtainable due to mental status Exam Const: Orientation/consciousness: confusion Limitations: altered mental status Neuro: Other: pt is moving arms and legs ,moving round, awake, alert Objective Data Vital Signs Vital Signs: Vital Signs - 24 hr 12/05/19 20:15 12/05/19 20:31 12/05/19 20:35 Temperature 37.2 C Pulse Rate 111 H 123 H 120 H Respiratory Rate 30 H Blood Pressure 200/124 H 168/84 H 168/84 H Pulse Oximetry 96 12/05/19 21:46 12/05/19 21:56 12/05/19 22:00 Temperature 36.9 C Pulse Rate 121 H 115 H 130 H Respiratory Rate 26 H Blood Pressure 191/89 H 151/85 H Pulse Oximetry 97 12/05/19 22:03 12/05/19 22:24 12/05/19 22:31 Temperature 38.0 C H Pulse Rate 135 H 151 H 122 H Respiratory Rate 31 H 28 H 27 H Blood Pressure 151/85 H 146/87 H 115/97 H Pulse Oximetry 95 97 98 12/05/19 22:46 12/05/19 23:01 12/05/19 23:07 Temperature 38.0 C H Pulse Rate 117 H 129 H Respiratory Rate 23 H 31 H Blood Pressure 161/83 H 161/83 H Pulse Oximetry 96 95 12/05/19 23:16 12/05/19 23:30 12/05/19 23:31 Temperature Pulse Rate 125 H 139 H Respiratory Rate 26 H 29 H Blood Pressure 158/103 H 172/89 H 172/89 H Pulse Oximetry 95 95 12/05/19 23:37 12/06/19 00:01 12/06/19 00:31 Temperature 38.3 C H 38.2 C H Pulse Rate 133 H 132 H Respiratory Rate 27 H 26 H Blood Pressure 163/76 H 165/92 H Pulse Oximetry 96 96 12/06/19 01:01 12/06/19 01:17 12/06/19 01:18 Temperature Pulse Rate 136 H 142 H 142 H Respiratory Rate 27 H Blood P
[2019-12-06 18:28] LABS: Anion Gap 9 mmol/L (8-16); Blood Urea Nitrogen 14 mg/dL (9-20); Calcium 8.3 mg/dL (8.4-10.2); Carbon Dioxide 25 mmol/L (22-30); Chloride 109 mmol/L (98-107); Estimated CRCL calculation 57 ml/min; Estimated Glomerular Filt Rate 50; Glucose 95 mg/dL (75-110); Potassium 2.9 mmol/L (3.4-5.0); Sodium 143 mmol/L (137-145)
[2019-12-06] MEDS: INSULIN HUMAN REGULAR (*BKC) 100 UNITS in SODIUM CHLORIDE 0.9% IV 99 ML IV CONT (18:43)
[2019-12-06 18:52] LABS: Glucose Point of Care 97 (65-105)
[2019-12-06] MEDS: ASPIRIN 300 MG SUPPOSITORY RECTAL (21:08)
--- NOTE | 2019-12-06 21:48 | PHAR ---
INSULIN DRIP RATE CHANGE FROM 0 ONITS/HR TO 20 UNITS/HR VERIFIED WITH RN. GLUCOSE LEVEL WILL BE CHECKED IN 30 MINUTES.
[2019-12-06] MEDS: CENTRAL LINE FLUSH 10 ML IV PUSH (22:18)
[2019-12-06 23:05] LABS: Glucose Point of Care 230 (65-105)
[2019-12-06 23:05] LABS: Glucose Point of Care 211 (65-105)
[2019-12-06 23:05] LABS: Glucose Point of Care 230 (65-105)
[2019-12-07] VITALS (22 sets, daily range): BP systolic 122–173; BP diastolic 74–111; PULSE 46–131; RESP 12–24; TEMP 36.4–37.8; O2SAT 94–99
--- NOTE | 2019-12-07 | ECHO_ITS ---
Patient Info Name: Jose A Rodarte Age: 69 years : 1950 Gender: Male Ht: 72 in Wt: 252 lbs BSA: 2.45 m2 HR: 86 bpm BP: 152 / 92 mmHg Heart Rhythm: Atrial Fibrillation Technical Quality: Good Exam Date: 12/07/2019 2:09 PM Exam Location: [facility] Patient Status: Inpatient Admit Date: 12/05/2019 Staff Ordering Physician: Emanuel Austin MD Radiologic Therapist: Ant Worthington RDCS Attending Provider: Emanuel Austin MD Referring Physician: Norman YEE; Exam Type: CA echo doppler color flow Study Info Indications I48.1 - Persistent atrial fibrillation Complete two-dimensional, color flow and Doppler transthoracic echocardiogram is performed. History/Risk Factors Hypertension: Yes Cardiomyopathy/LV Systolic Dysfunction: Yes History/Risk Factors Atrial fibrillations; HTN. Summary 1. Complete two-dimensional, color flow and Doppler transthoracic echocardiogram is performed. 2. Left ventricular chamber dimension is mildly enlarged. 3. Left ventricular systolic function is normal, estimated at 65-70%. 4. There is moderately increased left ventricular wall thickness. 5. The left ventricular diastolic function is abnormal. 6. Left atrial chamber dimension is mildly enlarged. 7. There is mild to moderate mitral valve regurgitation. 8. There is mild tricuspid valve regurgitation. 9. Mild pulmonary hypertension, estimated pulmonary arterial systolic pressure is 37 mmHg. Left Ventricle Left ventricular chamber dimension is mildly enlarged. Left ventricular systolic function is normal, estimated at 65-70%. There is moderately increased left ventricular wall thickness. The left ventricular diastolic function is abnormal. Right Ventricle Right ventricular chamber dimension is normal. Right ventricular systolic function is normal. Left Atria Left atrial chamber dimension is mildly enlarged. Right Atria Right atrial chamber dimension is normal. Atrial Septum Intact interatrial septum visualized by color flow imaging. Aortic Valve The aortic valve is trileaflet. There is mild aortic valve sclerosis. There is no aortic valve stenosis. There is trace aortic valve regurgitation. Pulmonic Valve The pulmonic valve is normal. There is no pulmonic valve stenosis. There is trace pulmonic regurgitation. Mitral Valve The mitral valve has normal leaflets. There is no mitral valve stenosis. There is mild to moderate mitral valve regurgitation. Tricuspid Valve The tricuspid valve leaflets are normal. There is no significant tricuspid valve stenosis. There is mild tricuspid valve regurgitation. Mild pulmonary hypertension, estimated pulmonary arterial systolic pressure is 37 mmHg. Pericardium/Pleural The pericardium appears normal. There is trivial pericardial effusion. Inferior Vena Cava Normal inferior vena cava with >50% collapse upon inspiration consistent with elevated right atrial pressure, 10 mmHg. Aorta The aortic root size at the sinus of Valsalva is normal. The prox ascending aorta size is normal. Left Ventricular Outflow Tract Name Value Normal LVOT 2D LVOT Diameter 2.3 cm LVOT Doppler
[2019-12-07 00:28] LABS: Glucose Point of Care 154 (65-105)
[2019-12-07 01:06] LABS: Glucose Point of Care 114 (65-105)
[2019-12-07 01:21] LABS: Anion Gap 6 mmol/L (8-16); Blood Urea Nitrogen 14 mg/dL (9-20); Calcium 8.2 mg/dL (8.4-10.2); Carbon Dioxide 25 mmol/L (22-30); Chloride 110 mmol/L (98-107); Estimated CRCL calculation 66 ml/min; Estimated Glomerular Filt Rate 60; Glucose 115 mg/dL (75-110); Potassium 3.4 mmol/L (3.4-5.0); Sodium 141 mmol/L (137-145)
[2019-12-07 02:13] LABS: Glucose Point of Care 94 (65-105)
[2019-12-07] MEDS: AMPICILLIN 2 GM/NS 100 ML 2 GM/100 ML BAG IVPB ×6 (02:22→20:50)
[2019-12-07 03:19] LABS: Glucose Point of Care 186 (65-105)
[2019-12-07 04:23] LABS: Glucose Point of Care 97 (65-105)
[2019-12-07 04:31] LABS: Hematocrit 38.8 % (42.0-52.0); Hemoglobin 13.8 g/dL (14.0-18.0); Mean Corpuscular HGB Conc 35.6 g/dl (32-36); Mean Corpuscular Hemoglobin 31.1 pg (26-34); Mean Corpuscular Volume 87.4 fl (80-100); Mean Platelet Volume 11.4 fl (7.4-10.4); Platelet Count Result 183 k/mm3 (150-375); Red Blood Count 4.44 M/mm3 (4.6-6.20); Red Cell Distribution Width 14.2 % (11.5-14.5); White Blood Count 16.8 K/mm3 (4.5-10.0)
[2019-12-07 04:49] LABS: Alanine Aminotransferase 22 U/L (4-50); Albumin Level 3.6 g/dL (3.5-5.1); Alkaline Phosphatase 69 U/L (38-126); Anion Gap 10 mmol/L (8-16); Aspartate Amino Transferase 36 U/L (17-59); Bilirubin,Total 0.9 mg/dL (0.2-1.3); Blood Urea Nitrogen 14 mg/dL (9-20); Calcium 8.3 mg/dL (8.4-10.2); Carbon Dioxide 24 mmol/L (22-30); Chloride 111 mmol/L (98-107); Estimated CRCL calculation 61 ml/min; Estimated Glomerular Filt Rate 55; Glucose 86 mg/dL (75-110); Magnesium 2.2 mg/dL (1.6-2.3); Potassium 3.5 mmol/L (3.4-5.0); Sodium 145 mmol/L (137-145)
[2019-12-07] MEDS: INSULIN HUMAN REGULAR (*BKC) 100 UNITS in SODIUM CHLORIDE 0.9% IV 99 ML 5.9 UNITS IV CONT (05:00)
[2019-12-07] MEDS: AMIODARONE 360 MG/D5W 200 ML 360 MG/200 ML BAG 16.7 MG IV CONT (05:30)
[2019-12-07 06:44] LABS: Glucose Point of Care 119 (65-105)
[2019-12-07 06:44] LABS: Glucose Point of Care 167 (65-105)
[2019-12-07] MEDS: CENTRAL LINE FLUSH 10 ML IV PUSH ×3 (06:56→20:51)
[2019-12-07 07:04] LABS: Glucose Point of Care 144 (65-105)
--- NOTE | 2019-12-07 09:38 | WPDINTPN ---
Progress Note: A&P Assessment and Plan (1) Acute ischemic stroke: Code(s): I63.9 - Cerebral infarction, unspecified Status: Acute Assessment and Plan: patient with encephalopathy could CT scan on admission showed chronic right basal ganglia and periventricular lacunar infarct, small-vessel ischemic changes -- MRI on 12/06/2019 showed acute infarcts involving the posterior left frontal lobe and left temporal occipital region, sensitivity and specifically I decreased by motion artifact, old infarcts involving bilateral thalami, bilateral basal ganglia and yoanna, mild nonspecific cerebral white matter disease which likely represents chronic small vessel ischemic disease. - patient on aspirin - neurology following the patient - will have PT/ OT follow the patient along with speech therapy for swallow test (2) Acute encephalopathy: Code(s): G93.40 - Encephalopathy, unspecified Status: Acute Assessment and Plan: most likely multifactorial and no clear etiology at this time. multiple possible diagnosis like DKA, sepsis, PRES, stroke head CT was negative on presentation - patient started empiric antibiotics with vancomycin, ceftriaxone and ampicillin for meningitis, - Given his elevation in white count, fevers will have LP performed by interventional radiology - appreciate Neurology evaluation recommendation (3) DKA (diabetic ketoacidoses): Qualifiers: Diabetes mellitus complication detail: without coma Diabetes mellitus type: type 2 Qualified Code(s): E11.10 - Type 2 diabetes mellitus with ketoacidosis without coma Code(s): E11.10 - Type 2 diabetes mellitus with ketoacidosis without coma Status: Acute Assessment and Plan: patient on insulin infusion and anion gap has closed. - will transition to long-acting insulin, high-dose sliding scale insulin and Accu-Chek - will add Levemir (4) Hypertensive emergency: Code(s): I16.1 - Hypertensive emergency Status: Acute Assessment and Plan: currently off nicardipine infusion - on p.r.n. metoprolol, blood pressure is a much improved, will maintain blood pressures in 140-160 mmHg due to acute stroke (5) Atrial fibrillation with rapid ventricular response: Code(s): I48.91 - Unspecified atrial fibrillation Status: Acute Assessment and Plan: currently on amiodarone infusion, rate controlled, remains in AFib - p.r.n. med to - Eliquis is on hold because of potential LP (6) Dehydration: Code(s): E86.0 - Dehydration Status: Acute Assessment and Plan: continue maintenance IV hydration with normal saline at 75 mL/hour (7) Severe sepsis: Code(s): A41.9 - Sepsis, unspecified organism; R65.20 - Severe sepsis without septic shock Status: Acute Assessment and Plan: no clear source at this time, be related to pneumonia, meningitis - elevated lactic acid on admission, received adequate fluids, lactic acid trending down could be related from dehydration, hypovolemia - will check lactic acid - blood cultures pending - continue empiric antibiotics as above (8) Suspected 2019 novel coronavirus infection: Code(s): Z20.828 - Contact with and (suspected) exposure to other viral communicable diseases Status: Acute Assessment and Plan: COVID-19 suspected. SARS-CoV-2 PCR sent and results pending Patient is in Airborne, Droplet and Contact Isolation (9) DVT prophylaxis: Code(s): Z29.9 - Encounter for prophylactic measures, unspecified Status: Acute Assessment and Plan: DVT prophylaxis: SCDs will discuss with neurology regarding Lovenox since patient has had an acute stroke may wait until 48 hours Additional Plan patient more awake this morning, have speech to evaluate the patient for swallow test, currently NPO Code Status - patient unable to participate. Full Code documented in chart Total Critical Care Ti
[2019-12-07] MEDS: INSULIN DETEMIR 100 UNITS/ML 40 UNITS SUB-Q ×2 (10:19→21:27)
--- NOTE | 2019-12-07 10:35 | PM.PNCARD ---
Progress Note: A&P Assessment and Plan (1) Atrial fibrillation with rapid ventricular response: Code(s): I48.91 - Unspecified atrial fibrillation Status: Acute Assessment and Plan: history of persistent recurrent atrial fibrillation status post PVI ablation January 2019 now with recurrence of AFib with RVR in setting of presumed new diagnosis diabetes mellitus DKA, sepsis, hypertensive urgency, febrile and encephalopathy. Discussed options with Critical Care. DC IV amiodarone and switch him to amiodarone 200 mg p.o. b.i.d.. Replace potassium a little of greater 4.0. Additional HR control with IV Metoprolol. 5mg IV q6hr. 2D Echo when HR better controlled to assess LV function, valve pathology, pulmonary pressures. (2) Hypertensive emergency: Code(s): I16.1 - Hypertensive emergency Status: Acute Assessment and Plan: Wean nicardipine to off to off blood pressure is much better. (3) Acute encephalopathy: Code(s): G93.40 - Encephalopathy, unspecified Status: Acute Assessment and Plan: Per Critical Care. Caution with LP on anticoagulation, allow sufficient time to reduce bleeding risk. Continue supportive (4) Elevated troponin: Code(s): R77.8 - Other specified abnormalities of plasma proteins Status: Acute Assessment and Plan: No documented history of CAD. Very likely Type II infarction (non-MD troponin elevation) in setting of fever, DKA, hypertensive urgency, underlying CKD, and A.fib with RVR. No evidence thus far for acute plaque rupture/ACS. (5) DKA (diabetic ketoacidoses): Qualifiers: Diabetes mellitus complication detail: without coma Diabetes mellitus type: type 2 Qualified Code(s): E11.10 - Type 2 diabetes mellitus with ketoacidosis without coma Code(s): E11.10 - Type 2 diabetes mellitus with ketoacidosis without coma Status: Acute Assessment and Plan: Per Critical Care. (6) Severe sepsis: Code(s): A41.9 - Sepsis, unspecified organism; R65.20 - Severe sepsis without septic shock Status: Acute Assessment and Plan: As above, IVF, IV ABx, cultures. COVID pending. On isolation. Subjective Date/time seen: 12/07/19 10:35 Interval history: Reason for consult: encephalopathy, hypertensive urgency, acute stroke, DKA, AFib RVR requiring amiodarone Date of service 12/07/2019: Patient awake alert. Still in atrial fibrillation. Blood sugars are much better. Review of Systems Review of Systems: All systems reviewed & are unremarkable except as noted in HPI and below ROS unobtainable: Yes unobtainable due to medical condition and unobtainable due to mental status Constitutional: Constitutional: Reports as per HPI, Reports no additional constitutional complaints and Reports fever(s) Eyes: Eyes: Reports as per HPI and Reports no additional eye complaints ENT: Reports system reviewed and no additional complaints, except as documented and Reports as per HPI Cardiovascular: Cardiovascular: Reports as per HPI and Reports no additional cardiovascular complaints Respiratory: Respiratory: Reports as per HPI and Reports no additional respiratory complaints Gastrointestinal: Gastrointestinal: Reports as per HPI and Reports no additional gastrointestinal complaints Genitourinary: Genitourinary: Reports no additional male genitourinary complaints and Reports as per HPI Musculoskeletal: Musculoskeletal: Reports no additional musculoskeletal complaints and Reports as per HPI Integumentary/Breasts: Skin/Breast: Reports system reviewed and no additional complaints, except as docu and Reports as per HPI Neurologic: Reports system reviewed and no additional complaints, except as documented, Reports as per HPI and Reports confusion Psychiatric: Psychiatric: Reports no additional psychiatric complaints, Reports as per HPI and Reports confusion Endocrine: Endocrine: Reports no additional endocrine complaints and
[2019-12-07] MEDS: AMIODARONE HCL 200 MG TABLET PO ×2 (12:26→16:56)
[2019-12-07 14:08] LABS: SARS-CoV-2 RNA PCR Negative
--- NOTE | 2019-12-07 14:33 | PC.NURSE ---
Dr. Feldmanly notified of negative Covid results
[2019-12-07 15:51] LABS: Glucose CSF 51 mg/dL (40-70); Total Protein CSF 158 mg/dL (12-60)
--- NOTE | 2019-12-07 16:44 | PC.NURSE ---
This patient, Jose A Rodarte, was transferred to [212 ] on 12/07/19 at [facility]. Personal belongings sent with patient. Belongings list checked and signed with receiving [ ]. Report given to [Darlene Ramsey RN @ [facility] ]. Appropriate documentation sent with patient.
[2019-12-07 16:47] LABS: Glucose Point of Care 77 (65-105)
[2019-12-07 16:47] LABS: Glucose Point of Care 128 (65-105)
[2019-12-07 16:47] LABS: Glucose Point of Care 133 (65-105)
[2019-12-07 16:50] LABS: Appearance CSF Clear (Clear); CSF source CSF; Color CSF Colorless (Colorless); Lymphocytes CSF 5 % (40-80); Monocytes CSF 6 % (15-45); Neutrophils CSF 89 % (0-6); Nucleated Cell CSF 133 /uL (0-5); Red Blood Cell CSF 68 (0-2)
[2019-12-07 16:59] LABS: Glucose Point of Care 153 (65-105)
[2019-12-07 17:41] LABS: Glucose Point of Care 186 (65-105)
--- NOTE | 2019-12-07 18:22 | PM.IMPN ---
Progress Note: A&P Assessment and Plan (1) Acute encephalopathy: Code(s): G93.40 - Encephalopathy, unspecified Status: Acute Assessment and Plan: Complicated medical problems HTN crisis V meningitis ABG looks good pt pulse oxs is good, pt moving in the room. Continue to monitor I do not think pt needs intubation yet. Continue to monitor apnea spells. 12/07/19 18:22 patient is 69-year-old male with history of atrial fibrillation status post abaltion, patient was brought to the emergency department by his my is patient was more somnolent and confused was not able to communicate with her and was not providing any history, concern the patient may have stroke concern the patient may be septic and patient was also tested COVID-19 and it is negative, initial CT scan of the head did not show any acute injury however MRI of the brain today showed Acute infarcts involving the posterior left frontal lobe and left temporal occipital region. Sensitivity and specificity are decreased by motion artifact. patient is on full dose of aspirin patient is seen by neurologist further recommendation to follow, patient is also found to atrial fibrillation was started on amiodarone drip seen by cardiology and switch him over to amiodarone 200 mg b.i.d. rate is trending down, upon arrival patient was in DKA and was hydrated and was placed on IV infusion none blood sugars trending down anion gap is closed and patient on long-acting insulin will continue to monitor patient will need to see life skills educator once clinically stable. (2) Hyperosmolar (nonketotic) coma: Code(s): E11.01 - Type 2 diabetes mellitus with hyperosmolarity with coma Status: Acute Assessment and Plan: The patient appears to have hyperosmolar nonketotic coma (3) Hypertensive emergency: Code(s): I16.1 - Hypertensive emergency Status: Acute Assessment and Plan: Continue Cardene IV drip (4) Atrial fibrillation with rapid ventricular response: Code(s): I48.91 - Unspecified atrial fibrillation Status: Acute Assessment and Plan: The patient has been started on Lopressor IV per Cardiology. (5) Dehydration: Code(s): E86.0 - Dehydration Status: Acute Assessment and Plan: Continue IV hydration and monitor urine output and vital signs closely. (6) Severe sepsis: Code(s): A41.9 - Sepsis, unspecified organism; R65.20 - Severe sepsis without septic shock Status: Acute Assessment and Plan: With tachycardia and elevated lactic acid of 5.1. (7) Hyperbilirubinemia: Code(s): E80.6 - Other disorders of bilirubin metabolism Status: Acute Assessment and Plan: We will check a total and indirect bilirubin in a.m.. (8) Suspected 2019 novel coronavirus infection: Code(s): Z20.828 - Contact with and (suspected) exposure to other viral communicable diseases Status: Acute Assessment and Plan: the patient has been swab for stover virus. Continue droplet isolation. Additional Plan The patient will likely need at least 2 nights of inpatient medical therapy for his acute encephalopathy, HONC, and hypertensive emergency. I have spent over 34 minutes of critical care time with this patient tonight. Date of service was 12/05/2019 at 21:15 hrs. Subjective Date/time seen: 12/07/19 18:22 patient is 69-year-old male with history of atrial fibrillation status post abaltion, patient was brought to the emergency department by his my is patient was more somnolent and confused was not able to communicate with her and was not providing any history, concern the patient may have stroke concern the patient may be septic and patient was also tested COVID-19 and it is negative, initial CT scan of the head did not show any acute injury however MRI of the brain today showed Acute infarcts involving the posterior left frontal lobe and left temporal occipital region. Sen
[2019-12-07] MEDS: SODIUM CHLORIDE 0.45% 1,000 ML 75 ML IV CONT (20:11)
[2019-12-07 20:47] LABS: Glucose Point of Care 235 (65-105)
[2019-12-07] MEDS: INSULIN ASPART (*BKC) 100 UNITS/ML SUB-Q (21:26)
[2019-12-07] MEDS: METOPROLOL TARTRATE INJ 5 MG/5 ML VIAL IV PUSH (23:59)
[2019-12-08] VITALS (21 sets, daily range): BP systolic 126–178; BP diastolic 64–122; PULSE 38–140; RESP 18–22; TEMP 35.8–36.5; O2SAT 96–98
[2019-12-08] MEDS: AMPICILLIN 2 GM/NS 100 ML 2 GM/100 ML BAG IVPB ×6 (01:33→23:05)
[2019-12-08] MEDS: CENTRAL LINE FLUSH 10 ML IV PUSH ×3 (05:31→23:16)
[2019-12-08 05:59] LABS: Basophils Absolute Auto 0.1 K/mm3 (0.0-0.1); Eosinophils Absolute Auto 0.1 K/mm3 (0-0.3); Eosinophils Percent Auto 1.4 % (0-4.4); Hematocrit 37.8 % (42.0-52.0); Hemoglobin 13.1 g/dL (14.0-18.0); Immature Granulocyte Absolute 0.04 K/mm3 (0.00-0.031); Immature Granulocyte Percent A 0.4 % (0-0.5); Immature Platelet Fraction Pct 6.6 % (0.9-11.2); Lymphocytes Absolute Auto 0.88 K/mm3 (0.9-3.2); Lymphocytes Percent Auto 9.3 % (18.3-44.2); Mean Corpuscular HGB Conc 34.7 g/dl (32-36); Mean Corpuscular Volume 89.6 fl (80-100); Mean Platelet Volume 11.5 fl (7.4-10.4); Monocytes Absolute Auto 0.9 K/mm3 (0.1-0.6); Monocytes Percent Auto 9.4 % (2.6-8.5); Neutrophils Absolute Auto 7.4 K/mm3 (1.3-6.7); Neutrophils Percent Auto 78.5 % (45.5-73.1); Platelet Count Result 126 k/mm3 (150-375); Red Blood Count 4.22 M/mm3 (4.6-6.20); Red Cell Distribution Width 14.6 % (11.5-14.5); White Blood Count 9.5 K/mm3 (4.5-10.0)
[2019-12-08 06:19] LABS: Alanine Aminotransferase 19 U/L (4-50); Alkaline Phosphatase 59 U/L (38-126); Anion Gap 10 mmol/L (8-16); Aspartate Amino Transferase 23 U/L (17-59); Bilirubin,Total 0.8 mg/dL (0.2-1.3); Blood Urea Nitrogen 14 mg/dL (9-20); Calcium 7.8 mg/dL (8.4-10.2); Carbon Dioxide 22 mmol/L (22-30); Chloride 108 mmol/L (98-107); Estimated CRCL calculation 67 ml/min; Estimated Glomerular Filt Rate 60; Glucose 180 mg/dL (75-110); Magnesium 2.1 mg/dL (1.6-2.3); Potassium 3.3 mmol/L (3.4-5.0); Sodium 140 mmol/L (137-145)
[2019-12-08 08:27] LABS: Glucose Point of Care 160 (65-105)
[2019-12-08] MEDS: AMIODARONE HCL 200 MG TABLET PO ×2 (09:04→16:27)
[2019-12-08] MEDS: INSULIN DETEMIR 100 UNITS/ML 40 UNITS SUB-Q ×2 (09:06→20:18)
[2019-12-08] MEDS: POTASSIUM CHLORIDE 20 MEQ TABLET 40 MEQ PO (09:44)
[2019-12-08] MEDS: SODIUM CHLORIDE 0.45% 1,000 ML 75 ML IV CONT ×2 (10:37→23:05)
[2019-12-08] MEDS: METOPROLOL TARTRATE INJ 5 MG/5 ML VIAL IV PUSH (11:10)
--- NOTE | 2019-12-08 11:27 | PCPTNOTE ---
Attempted therapy session, held per RN. Pt's HR is elevated. RN requested therapy to try again after lunch. Will attempt therapy session again.
[2019-12-08 12:01] LABS: Glucose Point of Care 345 (65-105)
[2019-12-08] MEDS: INSULIN ASPART (*BKC) 100 UNITS/ML SUB-Q ×3 (12:26→20:17)
--- NOTE | 2019-12-08 14:48 | PM.PNCARD ---
Progress Note: A&P Assessment and Plan (1) Atrial fibrillation with rapid ventricular response: Code(s): I48.91 - Unspecified atrial fibrillation Status: Acute Assessment and Plan: history of persistent recurrent atrial fibrillation status post PVI ablation January 2019 now with recurrence of AFib with RVR in setting of presumed new diagnosis diabetes mellitus DKA, sepsis, hypertensive urgency, febrile and encephalopathy. carvedilol 25 mg p.o. b.i.d.. Hold Eliquis for another 24 hours since he had a lumbar puncture yesterday. (2) Hypertensive emergency: Code(s): I16.1 - Hypertensive emergency Status: Acute Assessment and Plan: blood pressure is high. carvedilol to be started as above. Restart benazepril if needed (3) Acute encephalopathy: Code(s): G93.40 - Encephalopathy, unspecified Status: Acute Assessment and Plan: LP performed yesterday. (4) Elevated troponin: Code(s): R77.8 - Other specified abnormalities of plasma proteins Status: Acute Assessment and Plan: No documented history of CAD. Very likely Type II infarction (non-IN troponin elevation) in setting of fever, DKA, hypertensive urgency, underlying CKD, and A.fib with RVR. No evidence thus far for acute plaque rupture/ACS. (5) DKA (diabetic ketoacidoses): Qualifiers: Diabetes mellitus complication detail: without coma Diabetes mellitus type: type 2 Qualified Code(s): E11.10 - Type 2 diabetes mellitus with ketoacidosis without coma Code(s): E11.10 - Type 2 diabetes mellitus with ketoacidosis without coma Status: Acute Assessment and Plan: per hospitalist (6) Severe sepsis: Code(s): A41.9 - Sepsis, unspecified organism; R65.20 - Severe sepsis without septic shock Status: Acute Assessment and Plan: On antibiotics Subjective Date/time seen: 12/08/19 14:48 Interval history: Reason for consult: encephalopathy, hypertensive urgency, acute stroke, DKA, AFib RVR requiring amiodarone Date of service 12/08/2019: Patient awakeAnd alert. Still in atrial fibrillation. no chest pain or shortness of breath. Review of Systems Review of Systems: All systems reviewed & are unremarkable except as noted in HPI and below Constitutional: Constitutional: Reports as per HPI and Reports fever(s) Eyes: Eyes: Reports as per HPI and Reports no additional eye complaints ENT: Reports system reviewed and no additional complaints, except as documented and Reports as per HPI Cardiovascular: Cardiovascular: Reports as per HPI and Reports no additional cardiovascular complaints Respiratory: Respiratory: Reports as per HPI and Reports no additional respiratory complaints Gastrointestinal: Gastrointestinal: Reports as per HPI and Reports no additional gastrointestinal complaints Genitourinary: Genitourinary: Reports no additional male genitourinary complaints and Reports as per HPI Musculoskeletal: Musculoskeletal: Reports no additional musculoskeletal complaints and Reports as per HPI Integumentary/Breasts: Skin/Breast: Reports system reviewed and no additional complaints, except as docu and Reports as per HPI Neurologic: Reports system reviewed and no additional complaints, except as documented, Reports as per HPI and Reports confusion Psychiatric: Psychiatric: Reports no additional psychiatric complaints, Reports as per HPI and Reports confusion Endocrine: Endocrine: Reports no additional endocrine complaints and Reports as per HPI Hematologic/Lymphatic: Hematologic/Lymphatic: Reports no additional hematologic/lymphatic complaints and Reports as per HPI Allergic/Immunologic: Allergic/Immunologic: Reports no additional allergic/immunologic complaints and Reports as per HPI Exam Const: General: cooperative HENMT: Head: normal to inspection General nose exam: Normal nares present Eyes: General: appearance normal, both eyes and all rel
[2019-12-08 15:45] LABS: Vancomycin Trough 11.2 ug/mL (10.0-20.0)
[2019-12-08 16:46] LABS: Glucose Point of Care 289 (65-105)
--- NOTE | 2019-12-08 17:46 | PM.IMPN ---
Progress Note: A&P Assessment and Plan (1) Acute encephalopathy: Code(s): G93.40 - Encephalopathy, unspecified Status: Acute Assessment and Plan: Complicated medical problems HTN crisis V meningitis ABG looks good pt pulse oxs is good, pt moving in the room. Continue to monitor I do not think pt needs intubation yet. Continue to monitor apnea spells. 12/08/19 17:46 patient is 69-year-old male with history of atrial fibrillation status post abalation, patient was brought to the emergency department by his , patient was more somnolent and confused was not able to communicate with her and was not providing any history, concerned the patient may have stroke, concern the patient may be septic and patient was also tested COVID-19 and it is negative, initial CT scan of the head did not show any acute injury however MRI of the brain showed Acute infarcts involving the posterior left frontal lobe and left temporal occipital region. Sensitivity and specificity are decreased by motion artifact. patient is on full dose of aspirin patient is seen by neurologist further recommendation to follow, patient is also found to atrial fibrillation was started on amiodarone drip seen by cardiology and switch him over to amiodarone 200 mg b.i.d. rate is trending down, upon arrival patient was in DKA and was hydrated and was placed on IV infusion and blood sugars trending down anion gap was closed and patient was placed on long-acting insulin. Today 12/07 today patient states he work with physical therapy and occupation therapy, he is having difficulty with his words and expressing himself, heart rate is trending his amiodarone seen by cardiology and added Coreg 2.5 mg b.i.d. will hold Eliquis for the 24 hours as patient had LP, patient will benefit for acute rehab once clinically stable and heart rate is controlled, patient with new onset diabetes was in DKA upon arrival hemoglobin A1c is 11, now patient is on long-acting Lantus 40 units b.i.d. and monitor with sliding scale, will have primary special educator evaluate the patient, there was a concern patient may have meningitis had and LP started the patient on vancomycin, ampicillin and Zosyn CSF labs are pending seen by neurologist further recommendation to follow, will continue to monitor. . (2) Hyperosmolar (nonketotic) coma: Code(s): E11.01 - Type 2 diabetes mellitus with hyperosmolarity with coma Status: Acute Assessment and Plan: The patient appears to have hyperosmolar nonketotic coma (3) Hypertensive emergency: Code(s): I16.1 - Hypertensive emergency Status: Acute Assessment and Plan: Continue Cardene IV drip (4) Atrial fibrillation with rapid ventricular response: Code(s): I48.91 - Unspecified atrial fibrillation Status: Acute Assessment and Plan: The patient has been started on Lopressor IV per Cardiology. (5) Dehydration: Code(s): E86.0 - Dehydration Status: Acute Assessment and Plan: Continue IV hydration and monitor urine output and vital signs closely. (6) Severe sepsis: Code(s): A41.9 - Sepsis, unspecified organism; R65.20 - Severe sepsis without septic shock Status: Acute Assessment and Plan: With tachycardia and elevated lactic acid of 5.1. (7) Hyperbilirubinemia: Code(s): E80.6 - Other disorders of bilirubin metabolism Status: Acute Assessment and Plan: We will check a total and indirect bilirubin in a.m.. (8) Suspected 2019 novel coronavirus infection: Code(s): Z20.828 - Contact with and (suspected) exposure to other viral communicable diseases Status: Acute Assessment and Plan: the patient has been swab for stover virus. Continue droplet isolation. Subjective Date/time seen: 12/08/19 17:46 patient is 69-year-old male with history of atrial fibrillation status post abalation, patient was brought to the emergen
[2019-12-08 20:07] LABS: Glucose Point of Care 310 (65-105)
[2019-12-08] MEDS: carvediloL 25 MG TABLET PO (20:16)
[2019-12-08 20:46] LABS: Cryptococcus Antigen Not Detected (Not Detected); Cryptococcus Specimen Source CSF
[2019-12-08] MEDS: ALTEPLASE 2 MG VIAL (CATHFLO) IV PUSH (23:05)
[2019-12-09] VITALS (25 sets, daily range): BP systolic 114–195; BP diastolic 75–110; PULSE 79–107; RESP 18–24; TEMP 36–36.6; O2SAT 94–97
[2019-12-09] MEDS: WATER, STERILE FOR INJECTION 10 ML VIAL XX (00:45)
[2019-12-09] MEDS: AMPICILLIN 2 GM/NS 100 ML 2 GM/100 ML BAG IVPB ×6 (01:27→22:22)
[2019-12-09] MEDS: SODIUM CHLORIDE 0.45% 1,000 ML 75 ML IV CONT (04:34)
[2019-12-09] MEDS: CENTRAL LINE FLUSH 10 ML IV PUSH ×3 (04:35→20:29)
[2019-12-09 04:49] LABS: Hematocrit 35.7 % (42.0-52.0); Hemoglobin 12.4 g/dL (14.0-18.0); Immature Platelet Fraction Pct 6.7 % (0.9-11.2); Mean Corpuscular HGB Conc 34.7 g/dl (32-36); Mean Corpuscular Hemoglobin 31.2 pg (26-34); Mean Corpuscular Volume 89.9 fl (80-100); Mean Platelet Volume 11.2 fl (7.4-10.4); Platelet Count Result 129 k/mm3 (150-375); Red Blood Count 3.97 M/mm3 (4.6-6.20); Red Cell Distribution Width 14.4 % (11.5-14.5); White Blood Count 7.2 K/mm3 (4.5-10.0)
[2019-12-09 05:06] LABS: Alanine Aminotransferase 17 U/L (4-50); Albumin Level 3.1 g/dL (3.5-5.1); Alkaline Phosphatase 61 U/L (38-126); Anion Gap 6 mmol/L (8-16); Aspartate Amino Transferase 17 U/L (17-59); Bilirubin,Total 0.7 mg/dL (0.2-1.3); Blood Urea Nitrogen 11 mg/dL (9-20); Carbon Dioxide 27 mmol/L (22-30); Chloride 108 mmol/L (98-107); Estimated CRCL calculation 68 ml/min; Estimated Glomerular Filt Rate 60; Glucose 161 mg/dL (75-110); Magnesium 2.3 mg/dL (1.6-2.3); Potassium 3.3 mmol/L (3.4-5.0); Sodium 141 mmol/L (137-145)
[2019-12-09 05:07] LABS: Glucose Point of Care 147 (65-105)
[2019-12-09] MEDS: LABETALOL HCL INJ 100 MG/20 ML VIAL 20 MG IV PUSH (05:07)
[2019-12-09] MEDS: hydrALAZINE HCL 20 MG/ML VIAL 10 MG IV PUSH (06:35)
--- NOTE | 2019-12-09 07:10 | WPDCDIQUERY2 ---
CDI Query Clarification Request - Brain MRI impression:Acute infarcts involving the posterior left frontal lobe and left temporal occipital region. Sensitivity and specificity are decreased by motion artifact. - Dr Soliman has documented acute ischemic stroke - No mention by hospitalist Please clarify if acute ischemic stroke has been ruled in or ruled out. <Celestina Newton RN - Last Filed: 12/09/19 07:16> Clarified Diagnosis (1) Acute ischemic stroke: Code(s): I63.9 - Cerebral infarction, unspecified <Celestina Newton RN - Last Filed: 12/09/19 07:16> Status: Acute <Celestina Newton RN - Last Filed: 12/09/19 07:16> Assessment and Plan: MRI of the brain showed acute infarct involving the posterior left frontal lobe and left temporal most likely patient had acute ischemic stroke possibly cardiac embolic patient is restarted on Eliquis. <Rony Pardo MD - Last Filed: 12/10/19 17:04>
[2019-12-09] MEDS: AMIODARONE HCL 200 MG TABLET PO ×2 (08:37→17:49)
[2019-12-09] MEDS: ASPIRIN 325 MG TABLET PO (08:38)
[2019-12-09] MEDS: carvediloL 25 MG TABLET PO ×2 (08:38→20:29)
[2019-12-09] MEDS: INSULIN DETEMIR 100 UNITS/ML 40 UNITS SUB-Q ×2 (08:46→20:28)
--- NOTE | 2019-12-09 09:25 | PCPTNOTE ---
Attempted therapy session. Pt just finished with OT and was now eating breakfast. Will attempt again.
--- NOTE | 2019-12-09 10:10 | PM.PNCARD ---
Progress Note: A&P Additional Plan Patient with long history of atrial fibrillation was in sinus rhythm following ablation in 2019. Presumably stress of severe diabetic ketoacidosis is triggered of recurrence. We are treating him with amiodarone at this time and systemic anticoagulation. Carvedilol and benazepril will be continued for hypertension. I will resume his systemic anticoagulation today And withdraw aspirin. plan is for transfer to [facility] probably tomorrow will need to plan for DC cardioversion in the next several weeks if AFib persists. Miko Ledesma MD [facility] Subjective Date/time seen: 12/09/19 10:10 Interval history: Reason for consult: encephalopathy, hypertensive urgency, acute stroke, DKA, AFib RVR requiring amiodarone date of service 12/09/2019: Patient says he feels woozy otherwise appears to be comfortable. Discussed need to resume systemic anticoagulation as well as SELVIN-inhibitor as he is still hypertensive.. Exam Const: General: no acute distress and tired appearing Eyes: Sclera: sclerae normal Pupils: Equal, round and reactive pupils present Neck: Neck: supple Thyroid: thyroid normal Carotids: normal carotid upstroke Resp: Effort & Inspection: normal respiratory effort Auscultation: clear to auscultation bilaterally Cardio: Jugular venous distension: no JVD Palpation: normal PMI Rhythm: abnormal rhythm irregularly irregular Neuro: Cognition (Neuro): normal cognition Extrem: General: normal to inspection Objective Data Vital Signs Vital Signs: Vital Signs - 24 hr 12/08/19 11:10 12/08/19 12:00 12/08/19 12:39 Temperature 36.4 C Pulse Rate 38 L 130 H 112 H Respiratory Rate 20 Blood Pressure 151/85 H 145/93 H Pulse Oximetry 96 12/08/19 14:00 12/08/19 16:00 12/08/19 16:21 Temperature 36.2 C L Pulse Rate 108 H 121 H 64 Respiratory Rate 20 Blood Pressure 126/64 Pulse Oximetry 96 12/08/19 16:27 12/08/19 18:00 12/08/19 19:37 Temperature 35.8 C L Pulse Rate 115 H 115 H 108 H Respiratory Rate 18 Blood Pressure 136/90 Pulse Oximetry 97 12/08/19 20:00 12/08/19 20:16 12/08/19 22:00 Temperature Pulse Rate 108 H 106 H 109 H Respiratory Rate Blood Pressure Pulse Oximetry 12/08/19 23:42 12/09/19 00:00 12/09/19 02:00 Temperature 36.2 C L Pulse Rate 89 87 79 Respiratory Rate 20 Blood Pressure 146/84 H Pulse Oximetry 97 12/09/19 04:00 12/09/19 04:39 12/09/19 05:07 Temperature 36.2 C L Pulse Rate 79 89 84 Respiratory Rate 20 Blood Pressure 195/108 H Pulse Oximetry 95 12/09/19 06:00 12/09/19 06:49 12/09/19 08:00 Temperature 36.6 C Pulse Rate 79 99 Respiratory Rate 24 H Blood Pressure 152/86 H 182/105 H Pulse Oximetry 96 12/09/19 08:37 12/09/19 08:38 Temperature Pulse Rate 84 84 Respiratory Rate Blood Pressure Pulse Oximetry Intake/Output Intake/Output: Intake & Output 12/06/19 12/07/19 12/08/19 12/09/19 23:59 23:59 23:59 23:59 Intake Total 4800 3730 4410 1625 Output Total 2575 1450 1650 Balance 2225 2280 2760 1625 Meds/Results Medications: Active Medications Generic Name Dose Route Start Last Admin Trade Name Freq PRN Reason Stop Dose Admin Alteplase, Recombinant 2 mg 12/08/19 20:48 12/08/19 23:05 Alteplase 2 Mg Vial (Cathflo) IV PUSH 2 mg ONCE PRN Administration Line Occlusion Amiodarone HCl 200 mg 12/07/19 11:00 12/09/19 08:37 Amiodarone Hcl 200 Mg Tablet PO 200 mg BID SUYAPA Administration Apixaban 5 mg 12/09/19 21:00 Apixaban 5 Mg Tablet PO Q12HR SUYAPA Carvedilol 25 mg 12/08/19 21:00 12/09/19 08:38 Carvedilol 25 Mg Tablet PO 25 mg Q12HR SUYAPA Administration Dextrose 12.5 gm 12/07/19 10:09 Dextrose 50% 25 Gm/50 Ml Syringe IV PUSH PRN PRN Hypoglycemia Protocol Glucagon 1 mg 12/07/19 10:09 Glucagon For Inj 1 Mg Vial IM PRN PRN Hypoglycemia Protocol Gluco
[2019-12-09 10:31] LABS: Glucose Point of Care 167 (65-105)
[2019-12-09] MEDS: lisinopriL 20 MG TABLET 40 MG PO (12:24)
[2019-12-09 12:27] LABS: Glucose Point of Care 321 (65-105)
[2019-12-09] MEDS: INSULIN ASPART (*BKC) 100 UNITS/ML SUB-Q ×2 (12:29→20:28)
[2019-12-09 14:06] LABS: Epstein Barr Virus DNA PCR Not Detected (Not Detected); Source Epstein Barr Virus CSF
--- NOTE | 2019-12-09 14:57 | WPDNEUROPN ---
Progress Note: A&P Assessment and Plan (1) Acute ischemic stroke: Code(s): I63.9 - Cerebral infarction, unspecified Status: Acute (2) DVT prophylaxis: Code(s): Z29.9 - Encounter for prophylactic measures, unspecified Status: Acute (3) Elevated troponin: Code(s): R77.8 - Other specified abnormalities of plasma proteins Status: Acute (4) Hyperbilirubinemia: Code(s): E80.6 - Other disorders of bilirubin metabolism Status: Acute (5) Severe sepsis: Code(s): A41.9 - Sepsis, unspecified organism; R65.20 - Severe sepsis without septic shock Status: Acute (6) Dehydration: Code(s): E86.0 - Dehydration Status: Acute (7) Atrial fibrillation with rapid ventricular response: Code(s): I48.91 - Unspecified atrial fibrillation Status: Acute (8) Hypertensive emergency: Code(s): I16.1 - Hypertensive emergency Status: Acute (9) Acute encephalopathy: Code(s): G93.40 - Encephalopathy, unspecified Status: Acute (10) Altered mental status: Qualifiers: Altered mental status type: delirium Qualified Code(s): R41.0 - Disorientation, unspecified Code(s): R41.82 - Altered mental status, unspecified Status: Acute (11) Hyperosmolar hyperglycemic state (HHS): Code(s): E11.00 - Type 2 diabetes mellitus with hyperosmolarity without nonketotic hyperglycemic-hyperosmolar coma (NKHHC); E11.65 - Type 2 diabetes mellitus with hyperglycemia Status: Acute (12) DKA (diabetic ketoacidoses): Qualifiers: Diabetes mellitus complication detail: without coma Diabetes mellitus type: type 2 Qualified Code(s): E11.10 - Type 2 diabetes mellitus with ketoacidosis without coma Code(s): E11.10 - Type 2 diabetes mellitus with ketoacidosis without coma Status: Acute Additional Plan case discussed with the hospitalist and have suggested an infectious disease consultation to make sure that we do not have to treat this gentleman with the antiviral agent on the other hand he is clearly improving and does have evidence of stroke on the brain MRI once this is complete he will be a good candidate for over acute care rehab based on the findings on the MRI I have also requested a carotid Doppler study to complete the workup Review of Systems Review of Systems: All systems reviewed & are unremarkable except as noted in HPI and below Exam Narrative: Exam Narrative: patient is awake and alert well oriented has subtle aphasia and expression and a subtle left-sided weakness however overall improving Arnie no stool normal neck is supple no bruits are noted lungs are clear cardiovascular examination reveals atrial fibrillation abdomen is soft not tender extremities reveal no deformities Objective Data Vital Signs Vital Signs: Vital Signs - 24 hr 12/08/19 16:00 12/08/19 16:21 12/08/19 16:27 Temperature 36.2 C L Pulse Rate 121 H 64 115 H Respiratory Rate 20 Blood Pressure 126/64 Pulse Oximetry 96 12/08/19 18:00 12/08/19 19:37 12/08/19 20:00 Temperature 35.8 C L Pulse Rate 115 H 108 H 108 H Respiratory Rate 18 Blood Pressure 136/90 Pulse Oximetry 97 12/08/19 20:16 12/08/19 22:00 12/08/19 23:42 Temperature 36.2 C L Pulse Rate 106 H 109 H 89 Respiratory Rate 20 Blood Pressure 146/84 H Pulse Oximetry 97 12/09/19 00:00 12/09/19 02:00 12/09/19 04:00 Temperature Pulse Rate 87 79 79 Respiratory Rate Blood Pressure Pulse Oximetry 12/09/19 04:39 12/09/19 05:07 12/09/19 06:00 Temperature 36.2 C L Pulse Rate 89 84 79 Respiratory Rate 20 Blood Pressure 195/108 H Pulse Oximetry 95 12/09/19 06:49 12/09/19 08:00 12/09/19 08:30 Temperature 36.6 C Pulse Rate 99 91 Respiratory Rate 24 H Blood Pressure 152/86 H 182/105 H Pulse Oximetry 96 12/09/19 08:37 12/09/19 08:38 12/09/19 10:00 Temperature Pulse Rate 84 84 92 Respirat
--- NOTE | 2019-12-09 16:23 | PM.IMPN ---
Progress Note: A&P Assessment and Plan (1) Acute encephalopathy: Code(s): G93.40 - Encephalopathy, unspecified Status: Acute Assessment and Plan: Complicated medical problems HTN crisis V meningitis ABG looks good pt pulse oxs is good, pt moving in the room. Continue to monitor I do not think pt needs intubation yet. Continue to monitor apnea spells. 12/09/19 16:23 patient is 69-year-old male with history of atrial fibrillation status post abalation, patient was brought to the emergency department by his , patient was more somnolent and confused was not able to communicate with her and was not providing any history, concerned the patient may have stroke, concern the patient may be septic and patient was also tested COVID-19 and it is negative, initial CT scan of the head did not show any acute injury however MRI of the brain showed Acute infarcts involving the posterior left frontal lobe and left temporal occipital region. Sensitivity and specificity are decreased by motion artifact. patient is on full dose of aspirin patient is seen by neurologist further recommendation to follow, patient is also found to atrial fibrillation was started on amiodarone drip seen by cardiology and switch him over to amiodarone 200 mg b.i.d. rate is trending down, upon arrival patient was in DKA and was hydrated and was placed on IV infusion and blood sugars trending down anion gap was closed and patient was placed on long-acting insulin. 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 patient will benefit for acute rehab once clinically stable and heart rate is controlled, patient with new onset diabetes was in DKA upon arrival hemoglobin A1c is 11, now patient is on long-acting Lantus 40 units b.i.d. and monitor with sliding scale, will have nurse educator evaluate the patient, there was a concern patient may have meningitis had and LP started the patient on vancomycin, ampicillin and Zosyn CSF labs are pending seen by neurologist and will be seen ID further recommendation to follow, will continue to monitor. if remains clinically stable will discharge the patient tomorrow to [facility] (2) Hyperosmolar (nonketotic) coma: Code(s): E11.01 - Type 2 diabetes mellitus with hyperosmolarity with coma Status: Acute Assessment and Plan: The patient appears to have hyperosmolar nonketotic coma (3) Hypertensive emergency: Code(s): I16.1 - Hypertensive emergency Status: Acute Assessment and Plan: Continue Cardene IV drip (4) Atrial fibrillation with rapid ventricular response: Code(s): I48.91 - Unspecified atrial fibrillation Status: Acute Assessment and Plan: The patient has been started on Lopressor IV per Cardiology. (5) Dehydration: Code(s): E86.0 - Dehydration Status: Acute Assessment and Plan: Continue IV hydration and monitor urine output and vital signs closely. (6) Severe sepsis: Code(s): A41.9 - Sepsis, unspecified organism; R65.20 - Severe sepsis without septic shock Status: Acute Assessment and Plan: With tachycardia and elevated lactic acid of 5.1. (7) Hyperbilirubinemia: Code(s): E80.6 - Other disorders of bilirubin metabolism Status: Acute Assessment and Plan: We will check a total and indirect bilirubin in a.m.. (8) Suspected 2019 novel coronavirus infection: Code(s): Z20.828 - Contact with and (suspected) exposure to other viral communicable diseases Status: Acute Assessment and Plan: the patient has been swab for stover virus. Continue droplet isolation. Subjecti
[2019-12-09 17:05] LABS: Glucose Point of Care 194 (65-105)
[2019-12-09 20:27] LABS: Glucose Point of Care 261 (65-105)
[2019-12-09] MEDS: APIXABAN 5 MG TABLET PO (20:29)
[2019-12-09 22:32] LABS: Herpes Simplex Type 1 DNA PCR Not Detected (Not Detected); Herpes Simplex Type 2 DNA PCR Not Detected (Not Detected)
[2019-12-10] VITALS (16 sets, daily range): BP systolic 115–153; BP diastolic 87–97; PULSE 77–98; RESP 14–18; TEMP 36–36.3; O2SAT 95–98
[2019-12-10] MEDS: AMPICILLIN 2 GM/NS 100 ML 2 GM/100 ML BAG IVPB ×3 (02:51→10:09)
[2019-12-10 04:45] LABS: Hematocrit 35.3 % (42.0-52.0); Hemoglobin 12.1 g/dL (14.0-18.0); Mean Corpuscular HGB Conc 34.3 g/dl (32-36); Mean Corpuscular Hemoglobin 31.2 pg (26-34); Mean Platelet Volume 11.4 fl (7.4-10.4); Platelet Count Result 141 k/mm3 (150-375); Red Blood Count 3.88 M/mm3 (4.6-6.20); Red Cell Distribution Width 14.6 % (11.5-14.5); White Blood Count 6.8 K/mm3 (4.5-10.0)
[2019-12-10 05:00] LABS: Alanine Aminotransferase 18 U/L (4-50); Albumin Level 3.1 g/dL (3.5-5.1); Alkaline Phosphatase 59 U/L (38-126); Anion Gap 7 mmol/L (8-16); Aspartate Amino Transferase 20 U/L (17-59); Bilirubin,Total 0.5 mg/dL (0.2-1.3); Blood Urea Nitrogen 12 mg/dL (9-20); Carbon Dioxide 27 mmol/L (22-30); Chloride 108 mmol/L (98-107); Estimated CRCL calculation 67 ml/min; Estimated Glomerular Filt Rate 60; Glucose 203 mg/dL (75-110); Magnesium 2.3 mg/dL (1.6-2.3); Potassium 3.2 mmol/L (3.4-5.0); Sodium 142 mmol/L (137-145)
[2019-12-10] MEDS: CENTRAL LINE FLUSH 10 ML IV PUSH ×2 (05:08→13:52)
[2019-12-10] MEDS: CENTRAL LINE FLUSH 20 ML IV PUSH (05:08)
[2019-12-10] MEDS: INSULIN ASPART (*BKC) 100 UNITS/ML SUB-Q ×3 (05:08→16:33)
[2019-12-10 07:29] LABS: Glucose Point of Care 163 (65-105)
[2019-12-10] MEDS: carvediloL 25 MG TABLET PO (08:34)
[2019-12-10] MEDS: lisinopriL 20 MG TABLET 40 MG PO (08:34)
[2019-12-10] MEDS: INSULIN DETEMIR 100 UNITS/ML 40 UNITS SUB-Q (08:34)
[2019-12-10] MEDS: APIXABAN 5 MG TABLET PO (08:35)
[2019-12-10] MEDS: AMIODARONE HCL 200 MG TABLET PO ×2 (08:35→16:34)
[2019-12-10] MEDS: POTASSIUM CHLORIDE 20 MEQ TABLET 40 MEQ PO ×2 (10:09→13:52)
[2019-12-10 10:56] LABS: VDRL Quantitative CSF Nonreactive (Nonreactive)
[2019-12-10 12:38] LABS: Glucose Point of Care 262 (65-105)
--- NOTE | 2019-12-10 12:44 | PM.PNCARD ---
Progress Note: A&P Assessment and Plan (1) Atrial fibrillation with rapid ventricular response: Code(s): I48.91 - Unspecified atrial fibrillation Status: Acute Assessment and Plan: heart rate is controlled. Plan is continue anticoagulation and eventual cardioversion within a couple of weeks if he remains in atrial fibrillation (2) Elevated troponin: Code(s): R77.8 - Other specified abnormalities of plasma proteins Status: Acute Assessment and Plan: not related to ACS (3) DKA (diabetic ketoacidoses): Qualifiers: Diabetes mellitus complication detail: without coma Diabetes mellitus type: type 2 Qualified Code(s): E11.10 - Type 2 diabetes mellitus with ketoacidosis without coma Code(s): E11.10 - Type 2 diabetes mellitus with ketoacidosis without coma Status: Acute Assessment and Plan: resolved (4) Volume overload: Code(s): E87.70 - Fluid overload, unspecified Status: Acute Assessment and Plan: volume overload from Volume resuscitation. Will give a dose of IV furosemide 40 mg IV x1 as well as an extra dose of potassium chloride 40 mEq p.o. x1 Subjective Date/time seen: 12/10/19 12:44 Interval history: Admitted for DKA, stroke. History of atrial fibrillation Date of service 12/10/2019: Heart rate is controlled. Still in atrial fibrillation. On anticoagulation. Does have some swelling which is new. No chest pain or s hortness of breath Review of Systems Review of Systems: All systems reviewed & are unremarkable except as noted in HPI and below Constitutional: Constitutional: Denies weakness Eyes: Eyes: Denies blurry vision ENT: Reports Normal hearing present Cardiovascular: Cardiovascular: Denies chest pain, Reports pedal edema and Reports leg edema Respiratory: Respiratory: Denies dyspnea Gastrointestinal: Gastrointestinal: Denies hematemesis Genitourinary: Genitourinary: Denies urinary frequency Musculoskeletal: Musculoskeletal: Denies back pain Integumentary/Breasts: Skin/Breast: Denies unusual bruising Neurologic: Denies headache(s) Psychiatric: Psychiatric: Denies anxiety Endocrine: Endocrine: Denies change in body appearance Hematologic/Lymphatic: Hematologic/Lymphatic: Denies easy bleeding Allergic/Immunologic: Allergic/Immunologic: Denies GI upset with certain foods Exam Narrative: Exam Narrative: awake and alert Const: General: comfortable and no acute distress HENMT: General nose exam: Normal nares present Eyes: Sclera: sclerae normal Neck: Neck: no JVD Resp: Auscultation: clear to auscultation bilaterally Cardio: Rate: regular rate Rhythm: abnormal rhythm ( irregular irregular) GI: GI Palp: Yes Soft to palpation Skin: General skin exam: normal color Neuro: Cognition (Neuro): normal cognition Speech: normal speech Extrem: General: edema and pedal edema Psych: Affect: normal affect Objective Data Vital Signs Vital Signs: Vital Signs - 24 hr 12/09/19 14:00 12/09/19 16:00 12/09/19 16:45 Temperature 36.4 C Pulse Rate 86 86 92 Respiratory Rate 22 H Blood Pressure 169/110 H Pulse Oximetry 94 12/09/19 17:49 12/09/19 18:44 12/09/19 18:50 Temperature Pulse Rate 95 104 H 100 Respiratory Rate Blood Pressure 143/77 H Pulse Oximetry 12/09/19 19:59 12/09/19 20:00 12/09/19 20:29 Temperature 36.2 C L Pulse Rate 104 H 92 107 H Respiratory Rate 18 Blood Pressure 170/88 H Pulse Oximetry 96 12/09/19 22:00 12/09/19 23:32 12/10/19 00:00 Temperature 36.6 C Pulse Rate 99 93 91 Respiratory Rate 18 Blood Pressure 114/87 Pulse Oximetry 95 12/10/19 02:00 12/10/19 04:00 12/10/19 04:17 Temperature 36.2 C L Pulse Rate 77 83 88 Respiratory Rate 18 Blood Pressure 145/97 H Pulse Oximetry 95 12/10/19 06:00 12/10/19 07:10 12/10/19 08:00 Temperature 36.2 C L Pulse Rate 93 88 97 Respiratory Rate 18 Blo
--- NOTE | 2019-12-10 13:46 | WPDINFPN2 ---
Progress Note: A&P Assessment and Plan (1) CSF pleocytosis: Code(s): D72.9 - Disorder of white blood cells, unspecified Status: Acute Assessment and Plan: csf pleocytosis non infectious REC Stop antimicrobials, call if Qs Subjective Date/time seen: 12/10/19 13:46 Objective Data Vital Signs Vital Signs: Vital Signs - 24 hr 12/09/19 14:00 12/09/19 16:00 12/09/19 16:45 Temperature 36.4 C Pulse Rate 86 86 92 Respiratory Rate 22 H Blood Pressure 169/110 H Pulse Oximetry 94 12/09/19 17:49 12/09/19 18:44 12/09/19 18:50 Temperature Pulse Rate 95 104 H 100 Respiratory Rate Blood Pressure 143/77 H Pulse Oximetry 12/09/19 19:59 12/09/19 20:00 12/09/19 20:29 Temperature 36.2 C L Pulse Rate 104 H 92 107 H Respiratory Rate 18 Blood Pressure 170/88 H Pulse Oximetry 96 12/09/19 22:00 12/09/19 23:32 12/10/19 00:00 Temperature 36.6 C Pulse Rate 99 93 91 Respiratory Rate 18 Blood Pressure 114/87 Pulse Oximetry 95 12/10/19 02:00 12/10/19 04:00 12/10/19 04:17 Temperature 36.2 C L Pulse Rate 77 83 88 Respiratory Rate 18 Blood Pressure 145/97 H Pulse Oximetry 95 12/10/19 06:00 12/10/19 07:10 12/10/19 08:00 Temperature 36.2 C L Pulse Rate 93 88 97 Respiratory Rate 18 Blood Pressure 147/93 H Pulse Oximetry 97 12/10/19 08:34 12/10/19 08:35 12/10/19 10:00 Temperature Pulse Rate 98 98 83 Respiratory Rate Blood Pressure Pulse Oximetry 12/10/19 12:00 12/10/19 12:35 Temperature 36.0 C L Pulse Rate 84 78 Respiratory Rate 16 Blood Pressure 115/87 Pulse Oximetry 97 Intake/Output Intake/Output: Intake & Output 12/07/19 12/08/19 12/09/19 12/10/19 23:59 23:59 23:59 23:59 Intake Total 3730 4410 2885 1440 Output Total 1450 1650 2100 1425 Balance 2280 2760 785 15 Meds/Results Medications: Active Medications Generic Name Dose Route Start Last Admin Trade Name Freq PRN Reason Stop Dose Admin Alteplase, Recombinant 2 mg 12/08/19 20:48 12/08/19 23:05 Alteplase 2 Mg Vial (Cathflo) IV PUSH 2 mg ONCE PRN Administration Line Occlusion Amiodarone HCl 200 mg 12/07/19 11:00 12/10/19 08:35 Amiodarone Hcl 200 Mg Tablet PO 200 mg BID SUYAPA Administration Apixaban 5 mg 12/09/19 21:00 12/10/19 08:35 Apixaban 5 Mg Tablet PO 5 mg Q12HR SUYAPA Administration Carvedilol 25 mg 12/08/19 21:00 12/10/19 08:34 Carvedilol 25 Mg Tablet PO 25 mg Q12HR SUYAPA Administration Dextrose 12.5 gm 12/07/19 10:09 Dextrose 50% 25 Gm/50 Ml Syringe IV PUSH PRN PRN Hypoglycemia Protocol Glucagon 1 mg 12/07/19 10:09 Glucagon For Inj 1 Mg Vial IM PRN PRN Hypoglycemia Protocol Glucose 15 gm 12/07/19 10:09 Glucose Oral Gel 15 Gm Of Glucse In 37.5 Gm Tube PO PRN PRN Hypoglycemia Protocol Ampicillin Sodium 2 gm in 100 mls @ 200 mls/hr 12/06/19 10:00 12/10/19 10:40 Ampicillin 2 Gm/Ns 100 Ml IVPB Infused Q4H SUYAPA Infusion Ceftriaxone Sodium 2 gm in 100 mls @ 200 mls/hr 12/06/19 09:05 12/10/19 09:05 Rocephin 2 Gm/D5w 100 Ml IVPB Infused Q12HR SUYAPA Infusion Sodium Chloride 1,000 mls @ 75 mls/hr 12/06/19 09:20 12/09/19 04:34 Sodium Chloride 0.45% IV CONT 75 mls/hr .[id number] SUYAPA Administration Vancomycin HCl 1,750 mg in 500 mls @ 250 mls/hr 12/07/19 04:00 12/10/19 07:00 Vancomycin 1,750 Mg/D5w 500 Ml IVPB Infused Q18H SUYAPA Infusion Dextrose 1,000 mls @ 100 mls/hr 12/07/19 10:09 Dextrose 5% 1,000 Ml IVPB PRN PRN Hypoglycemia Protocol Insulin Aspart 4 - 8 units 12/07/19 16:30 12/10/19 12:38 Insulin Aspart (*Bkc) 100 Units/Ml SUB-Q 5 units ACHS SUYAPA Administration Protocol Insulin Detemir 40 units 12/07/19 09:55 12/10/19 08:34 Insulin Detemir 100 Units/Ml SUB-Q 40 units Q12HR SUYAPA Administration Lisinopril 40 mg 12/09/19 10:10 12/10/19 08:34
[2019-12-10] MEDS: FUROSEMIDE INJ 40 MG/4 ML VIAL IV PUSH (13:52)
[2019-12-10 16:39] LABS: Glucose Point of Care 289 (65-105)
--- NOTE | 2019-12-10 16:54 | PM.IMPN ---
Progress Note: A&P Assessment and Plan (1) Acute encephalopathy: Code(s): G93.40 - Encephalopathy, unspecified Status: Acute Assessment and Plan: Complicated medical problems HTN crisis V meningitis ABG looks good pt pulse oxs is good, pt moving in the room. Continue to monitor I do not think pt needs intubation yet. Continue to monitor apnea spells. patient is 69-year-old male with history of atrial fibrillation status post abalation, patient was brought to the emergency department by his , patient was more somnolent and confused was not able to communicate with her and was not providing any history, concerned the patient may have stroke, concern the patient may be septic and patient was also tested COVID-19 and it is negative, initial CT scan of the head did not show any acute injury however MRI of the brain showed Acute infarcts involving the posterior left frontal lobe and left temporal occipital region. Sensitivity and specificity are decreased by motion artifact. patient is on full dose of aspirin patient is seen by neurologist further recommendation to follow, patient is also found to atrial fibrillation was started on amiodarone drip seen by cardiology and switch him over to amiodarone 200 mg b.i.d. rate is trending down, upon arrival patient was in DKA and was hydrated and was placed on IV infusion and blood sugars trending down anion gap was closed and patient was placed on long-acting insulin. 12/10/19 16:54 on 12/08 patient statef he worked with occupation therapy waiting for PT, , he is having difficulty with his words and expressing himself, heart rate is trending down on amiodarone 200mg BID seen by cardiology and added Coreg 25 mg b.i.d. his assessment specialist was in the room resumeed Eliquis lorsartan, and l stopped aspirn. patient will benefit for acute rehab once clinically stable and heart rate is controlled, patient with new onset diabetes was in DKA upon arrival hemoglobin A1c is 11, now patient is on long-acting Lantus 40 units b.i.d. and monitor with sliding scale, will have hematology nurse educator evaluate the patient, there was a concern patient may have meningitis had and LP started the patient on vancomycin, ampicillin and Zosyn CSF labs were pending seen by neurologist and will be seen ID further recommendation to follow, Today 12/09 patient is feeling much better, his heart rate is controlled, seen by Cardiology recommended to continue present management, patient is awaiting ID consult further recommendation possible meningitis treatment,will continue to monitor. if remains clinically stable will discharge the patient tomorrow to [facility] (2) Hyperosmolar (nonketotic) coma: Code(s): E11.01 - Type 2 diabetes mellitus with hyperosmolarity with coma Status: Acute Assessment and Plan: The patient appears to have hyperosmolar nonketotic coma (3) Hypertensive emergency: Code(s): I16.1 - Hypertensive emergency Status: Acute Assessment and Plan: Continue Cardene IV drip (4) Atrial fibrillation with rapid ventricular response: Code(s): I48.91 - Unspecified atrial fibrillation Status: Acute Assessment and Plan: The patient has been started on Lopressor IV per Cardiology. (5) Dehydration: Code(s): E86.0 - Dehydration Status: Acute Assessment and Plan: Continue IV hydration and monitor urine output and vital signs closely. (6) Severe sepsis: Code(s): A41.9 - Sepsis, unspecified organism; R65.20 - Severe sepsis without septic shock Status: Acute Assessment and Plan: With tachycardia and elevated lactic acid of 5.1. (7) Hyperbilirubinemia: Code(s): E80.6 - Other disorders of bilirubin metabolism Status: Acute Assessment and Plan: We will check a total and indirect bilirubin in a.m.. (8) Suspected 2019 novel coronavirus infection: Code(s): Z20.828 - Contact with
--- NOTE | 2019-12-10 17:25 | PC.NURSE ---
This patient, Jose A Rodarte, was transferred to [facility] on 12/10/19 at 1725. Personal belongings sent with patient. Report given to Christina NICOLE. Appropriate documentation sent with patient.
--- NOTE | 2019-12-11 06:16 | CONS_ITS ---
DATE OF CONSULTATION: 12/10/2019 REASON FOR CONSULTATION: CSF pleocytosis. HISTORY OF PRESENT ILLNESS: A 69-year-old male, who has not known of previous diabetes diagnosis, but has now been diagnosed with the same. He was brought to the emergency room on December 04 with altered mental status and that he was speaking less, eating less, had lassitude and was found to be confused with diaphoresis and urinary incontinence with hyperglycemia while here. He has also noted a dry mouth. He has been on no recent antibiotics for any reason. No recent steroids nor other immunosuppressants. He has had no previous meningitis. He does have a [place] at home, it scratches him, but denies any animal bites or insect bites that he can recall. Because his lactate was high, he was given vancomycin, cefepime on admission, then changed to ampicillin, ceftriaxone and vancomycin due to CSF results. Consultation requested yesterday. His hospital course has been notable for AF with RVR, abnormal MRI with acute infarcts in the brain, hyperglycemia, hyperosmolar coma, hypertensive emergency, elevated bilirubin. He denies headache, back pain, except that the lumbar puncture site, preexisting fever, chills, sweats, skin rash, or nausea. He has had some loose bowel movements since arrival. No true diarrhea. ALLERGIES: OXYCODONE AND TRAMADOL. HABITS: No tobacco. No alcohol to excess. CURRENT MEDICATIONS: Reviewed in full. PAST MEDICAL HISTORY: Prior AF, cataracts, cardiac ablation, hypertension, kidney stones. FAMILY HISTORY: Not pertinent to present illness. SOCIAL HISTORY: He is . Lives locally. is at the bedside. REVIEW OF SYSTEMS: Scratches from the dog. 14-point review otherwise negative. PHYSICAL EXAMINATION: GENERAL: This is an elderly male who appears his actual age, if not younger. No acute distress. VITAL SIGNS: Afebrile, 115/87, 78, 16, 97% room air. SKIN: Warm and dry. No rashes. Some abrasions. No cellulitis noted. He has no cervical adenopathy nor occipital. EENT: Pupils are equal, round, reactive to light. Oropharynx, oral mucosa normal. NECK: No masses or thyromegaly. No meningismus. No spinal tenderness. LUNGS: Clear to auscultation and percussion. CHEST: Equal expansion. Normal AP diameter. CARDIAC: Regular rate and rhythm. Normal S1, S2. No murmurs or gallops. ABDOMEN: Obese, nontender. No masses. No organomegaly. EXTREMITIES: Without clubbing, cyanosis, or edema. NEUROLOGIC: He is awake, alert, and responds to questions appropriately. He does have some short-term memory loss. LABORATORY DATA: Soria virus assay was nonreactive. Spinal fluid 12/07/2019, clear colorless, 68 red cells, 133 white cells, 89% PMN, 158 protein, glucose 51. VDRL nonreactive. PCR for HSV was negative. West Nile RNA, also negative. Cryptococcal antigen negative. His Accu-Cheks variable 163 up to 321. Mild hypokalemia. Electrolytes normal. Albumin 3.1. Hemoglobin A1c was 11%. White blood cell count 6.8, hemoglobin 12.1, platelets are 141. No differential done today, but previously revealed normal urinalysis. Multiple abnormalities not suggestive of infection. Blood gases with a pH 7.46, 30 to 53 on admission, now 7.45, 30-62. Blood cultures, no growth after 4 days incubation. CSF, no organism seen, rare white cells, no growth after 2 days incubation. RADIOLOGY: Brain MRI showed multiple acute as well as old infarcts. Chest x-ray, no active disease. Echocardiogram, no evidence of infection. ASSESSMENT: 1. CSF pleocytosis due to acute ischemic infarct, I doubt embolism. He does not have clinical findings to specifically suggest viral bacterial, mycobacterial, fungal, or parasitic infection. 2. New onset diabetes dennise
--- NOTE | 2019-12-11 07:38 | DS_ITS ---
This report was moved to the correct visit, [id number] on 12/29/2019. Original report was signed by Rony Pardo MD on 12/25/19 [id number]. DS: Admitting Diagnosis Admitting Diagnosis Admitting Diagnosis: CVA DS: Discharge Diagnosis Discharge Diagnosis (1) Acute encephalopathy: Code(s): G93.40 - Encephalopathy, unspecified Status: Acute Assessment and Plan: (1) Acute encephalopathy: Code(s): G93.40 - Encephalopathy, unspecified Status: Acute Assessment and Plan: Complicated medical problems HTN crisis V meningitis ABG looks good pt pulse oxs is good, pt moving in the room. Continue to monitor I do not think pt needs intubation yet. Continue to monitor apnea spells. patient is 69-year-old male with history of atrial fibrillation status post abalation, patient was brought to the emergency department by his , patient was more somnolent and confused was not able to communicate with her and was not providing any history, concerned the patient may have stroke, concern the patient may be septic and patient was also tested COVID-19 and it is negative, initial CT scan of the head did not show any acute injury however MRI of the brain showed Acute infarcts involving the posterior left frontal lobe and left temporal occipital region. Sensitivity and specificity are decreased by motion artifact. patient is on full dose of aspirin patient is seen by neurologist further recommendation to follow, patient is also found to atrial fibrillation was started on amiodarone drip seen by cardiology and switch him over to amiodarone 200 mg b.i.d. rate is trending down, upon arrival patient was in DKA and was hydrated and was placed on IV infusion and blood sugars trending down anion gap was closed and patient was placed on long-acting insulin. 12/10/19 16:54 on 12/08 patient statef he worked with occupation therapy waiting for PT, , he is having difficulty with his words and expressing himself, heart rate is trending down on amiodarone 200mg BID seen by cardiology and added Coreg 25 mg b.i.d. his bandoleer straightener stamper was in the room resumeed Eliquis lorsartan, and l stopped aspirn. patient will benefit for acute rehab once clinically stable and heart rate is controlled, patient with new onset diabetes was in DKA upon arrival hemoglobin A1c is 11, now patient is on long-acting Lantus 40 units b.i.d. and monitor with sliding scale, will have software educator evaluate the patient, there was a concern patient may have meningitis had and LP started the patient on vancomycin, ampicillin and Zosyn CSF labs were pending seen by neurologist and will be seen ID further recommendation to follow, Today 12/09 patient is feeling much better, his heart rate is controlled, seen by Cardiology recommended to continue present management, patient is awaiting ID consult further recommendation possible meningitis treatment,will continue to monitor. if remains clinically stable will discharge the patient tomorrow to [facility] (2) Hyperosmolar (nonketotic) coma: Code(s): E11.01 - Type 2 diabetes mellitus with hyperosmolarity with coma Status: Acute Assessment and Plan: The patient appears to have hyperosmolar nonketotic coma (3) Hypertensive emergency: Code(s): I16.1 - Hypertensive emergency Status: Acute Assessment and Plan: Continue Cardene IV drip (4) Atrial fibrillation with rapid ventricular response: Code(s): I48.91 - Unspecified atrial fibrillation Status: Acute Assessment and Plan: The patient has been started on Lopressor IV per Cardiology. (5) Dehydration: Code(s): E86.0 - Dehydration Status: Acute Assessment and Plan: Continue IV hydration and monitor urine output and vital signs closely. (6) Severe sepsis: Code(
== END 2019-12-10 17:15 | DRG 64 ==
LOC: ANHED 20:16 → ANHICU 21:11 → ANHIMU 12-08 15:59 → ANHICU 12-14 13:53 → ANHIMU 12-14 13:53
PROVIDERS: Emergency Medicine; Internal Medicine; Admitting Provider Family Medicine; Emergency Provider Emergency Medicine; Visit Provider Family Medicine
DX: I63.9 Cerebral infarction, unspecified (principal); E11.11 Type 2 diabetes mellitus with ketoacidosis with coma; E11.01 Type 2 diabetes mellitus with hyperosmolarity with coma; A41.9 Sepsis, unspecified organism; R65.20 Severe sepsis without septic shock; I16.1 Hypertensive emergency; G93.49 Other encephalopathy; N17.9 Acute kidney failure, unspecified; Z20.828 Contact with and (suspected) exposure to other viral communicable diseases; E86.0 Dehydration; I11.0 Hypertensive heart disease with heart failure; I50.9 Heart failure, unspecified; I48.91 Unspecified atrial fibrillation; E11.36 Type 2 diabetes mellitus with diabetic cataract; H26.9 Unspecified cataract; E80.6 Other disorders of bilirubin metabolism; R77.8 Other specified abnormalities of plasma proteins; E87.8 Other disorders of electrolyte and fluid balance, not elsewhere classified; D72.9 Disorder of white blood cells, unspecified; E87.70 Fluid overload, unspecified; Z79.01 Long term (current) use of anticoagulants; Z79.899 Other long term (current) drug therapy; Z87.442 Personal history of urinary calculi; Z98.890 Other specified postprocedural states
CPT/HCPCS: 36415; 36569; 36600; 51701; 62328; 70450; 70551; 71045; 80048; 80053; 80202; 81001; 82010; 82248; 82375; 82607; 82805; 82945; 82948; 83036; 83050; 83605; 83735; 83880; 84100; 84157; 84443; 84484; 85025; 85027; 85055; 85610; 85730; 86403; 86592; 87040; 87070; 87102; 87205; 87206; 87529; 87635; 87798; 88108; 89051; 92610; 93005; 93306; 93880; 96361; 96365; 96368; 96375; 97110; 97116; 97161; 97165; 97530; 97535; 99285; A9270; C1751; C9803; J0131; J0282; J0290; J0360; J0692; J0696; J1815; J1940; J2997; J3370; J3480; J7030; J7120; U0003

== ENCOUNTER 2019-12-10 17:24 | IRF | payer MEDICARE, OTHER, SELFPAY ==
--- NOTE | 2019-12-10 17:56 | PC.NURSE ---
This patient, Jose A Rodarte, was admitted to [facility] Room 223-02. Patient/family oriented to hospital policies and general routines including ID bracelet, bed and alarms, visiting hours, pain management, procedures, bathroom and other care routines, personal items, smoking policy, room service/diet, and visiting hours. Information on how to activate the Rapid Response Team has been discussed. Patient/Family are encouraged to report perceived risks to care and to ask questions if they do not understand what they are told or what they should do.
[2019-12-10 18:00] VITALS: BP 135/99; PULSE 100; RESP 18; TEMP 36.9; O2SAT 98; BMI 37.5
[2019-12-10 20:19] VITALS: BP 151/87; PULSE 67; RESP 20; TEMP 37.2; O2SAT 96
[2019-12-10 20:45] VITALS: PULSE 68
[2019-12-10] MEDS: APIXABAN 5 MG TABLET PO (20:45)
[2019-12-10] MEDS: carvediloL 25 MG TABLET PO (20:45)
[2019-12-11 05:20] LABS: Basophils Absolute Auto 0.1 K/mm3 (0.0-0.1); Basophils Percent Auto 0.6 % (0.2-1.2); Eosinophils Absolute Auto 0.5 K/mm3 (0-0.3); Eosinophils Percent Auto 6.1 % (0-4.4); Hematocrit 37.2 % (42.0-52.0); Hemoglobin 12.9 g/dL (14.0-18.0); Immature Granulocyte Absolute 0.06 K/mm3 (0.00-0.031); Immature Granulocyte Percent A 0.8 % (0-0.5); Lymphocytes Absolute Auto 0.89 K/mm3 (0.9-3.2); Lymphocytes Percent Auto 11.4 % (18.3-44.2); Mean Corpuscular HGB Conc 34.7 g/dl (32-36); Mean Corpuscular Hemoglobin 31.2 pg (26-34); Mean Corpuscular Volume 90.1 fl (80-100); Monocytes Absolute Auto 0.8 K/mm3 (0.1-0.6); Monocytes Percent Auto 10.2 % (2.6-8.5); Neutrophils Absolute Auto 5.5 K/mm3 (1.3-6.7); Neutrophils Percent Auto 70.9 % (45.5-73.1); Platelet Count Result 184 k/mm3 (150-375); Red Blood Count 4.13 M/mm3 (4.6-6.20); Red Cell Distribution Width 14.8 % (11.5-14.5); White Blood Count 7.8 K/mm3 (4.5-10.0)
[2019-12-11 05:33] VITALS: BP 182/77; PULSE 69; RESP 20; TEMP 36.4; O2SAT 99
[2019-12-11 05:37] LABS: Anion Gap 9 mmol/L (8-16); Blood Urea Nitrogen 13 mg/dL (9-20); Calcium 8.6 mg/dL (8.4-10.2); Carbon Dioxide 25 mmol/L (22-30); Chloride 110 mmol/L (98-107); Estimated CRCL calculation 55 ml/min; Estimated Glomerular Filt Rate 50; Glucose 163 mg/dL (75-110); Potassium 3.5 mmol/L (3.4-5.0); Sodium 144 mmol/L (137-145)
--- NOTE | 2019-12-11 06:15 | WPDCDIQUERY2 ---
CDI Query Clarification Request -Severe sepsis has been documented -No source of infection has been identified Please clarify if severe sepsis has been ruled in or ruled out. If ruled in, please identify source of infection. <Celestina Newton RN - Last Filed: 12/11/19 06:17> Clarified Diagnosis (1) Severe sepsis: Code(s): A41.9 - Sepsis, unspecified organism; R65.20 - Severe sepsis without septic shock <Celestina Newton RN - Last Filed: 12/11/19 06:17> Status: Acute <Celestina Newton RN - Last Filed: 12/11/19 06:17> Assessment and Plan: sepsis was ruled out both CSF and blood culture did not have any bacterial or viral growth, patient was seen Dr. saavedra and did not suspect any infection <Rony Pardo MD - Last Filed: 12/25/19 18:15>
--- NOTE | 2019-12-11 07:38 | PM.DS ---
DS: Admitting Diagnosis Admitting Diagnosis Admitting Diagnosis: CVA DS: Discharge Diagnosis Discharge Diagnosis (1) Acute encephalopathy: Code(s): G93.40 - Encephalopathy, unspecified Status: Acute Assessment and Plan: (1) Acute encephalopathy: Code(s): G93.40 - Encephalopathy, unspecified Status: Acute Assessment and Plan: Complicated medical problems HTN crisis V meningitis ABG looks good pt pulse oxs is good, pt moving in the room. Continue to monitor I do not think pt needs intubation yet. Continue to monitor apnea spells. patient is 69-year-old male with history of atrial fibrillation status post abalation, patient was brought to the emergency department by his , patient was more somnolent and confused was not able to communicate with her and was not providing any history, concerned the patient may have stroke, concern the patient may be septic and patient was also tested COVID-19 and it is negative, initial CT scan of the head did not show any acute injury however MRI of the brain showed Acute infarcts involving the posterior left frontal lobe and left temporal occipital region. Sensitivity and specificity are decreased by motion artifact. patient is on full dose of aspirin patient is seen by neurologist further recommendation to follow, patient is also found to atrial fibrillation was started on amiodarone drip seen by cardiology and switch him over to amiodarone 200 mg b.i.d. rate is trending down, upon arrival patient was in DKA and was hydrated and was placed on IV infusion and blood sugars trending down anion gap was closed and patient was placed on long-acting insulin. 12/10/19 16:54 on 12/08 patient statef he worked with occupation therapy waiting for PT, , he is having difficulty with his words and expressing himself, heart rate is trending down on amiodarone 200mg BID seen by cardiology and added Coreg 25 mg b.i.d. his desktop operator was in the room resumeed Elirgegg darnellsartan, and l stopped aspirn. patient will benefit for acute rehab once clinically stable and heart rate is controlled, patient with new onset diabetes was in DKA upon arrival hemoglobin A1c is 11, now patient is on long-acting Lantus 40 units b.i.d. and monitor with sliding scale, will have health educator evaluate the patient, there was a concern patient may have meningitis had and LP started the patient on vancomycin, ampicillin and Zosyn CSF labs were pending seen by neurologist and will be seen ID further recommendation to follow, Today 12/09 patient is feeling much better, his heart rate is controlled, seen by Cardiology recommended to continue present management, patient is awaiting ID consult further recommendation possible meningitis treatment,will continue to monitor. if remains clinically stable will discharge the patient tomorrow to [facility] (2) Hyperosmolar (nonketotic) coma: Code(s): E11.01 - Type 2 diabetes mellitus with hyperosmolarity with coma Status: Acute Assessment and Plan: The patient appears to have hyperosmolar nonketotic coma (3) Hypertensive emergency: Code(s): I16.1 - Hypertensive emergency Status: Acute Assessment and Plan: Continue Cardene IV drip (4) Atrial fibrillation with rapid ventricular response: Code(s): I48.91 - Unspecified atrial fibrillation Status: Acute Assessment and Plan: The patient has been started on Lopressor IV per Cardiology. (5) Dehydration: Code(s): E86.0 - Dehydration Status: Acute Assessment and Plan: Continue IV hydration and monitor urine output and vital signs closely. (6) Severe sepsis: Code(s): A41.9 - Sepsis, unspecified organism; R65.20 - Severe sepsis without septic shock Status: Acute Assessment and Plan: With tachycardia and elevated lactic acid of 5.1. (7) Hyperbilirubinemia: Code(s): E80.6 - Other disorders of bilirubin metabolism
[2019-12-11] MEDS: APIXABAN 5 MG TABLET PO ×2 (08:50→20:08)
[2019-12-11] MEDS: lisinopriL 20 MG TABLET 40 MG PO (08:50)
[2019-12-11] MEDS: FUROSEMIDE 40 MG TABLET PO (08:50)
[2019-12-11 08:51] VITALS: PULSE 69
[2019-12-11] MEDS: carvediloL 25 MG TABLET PO ×2 (08:51→20:08)
[2019-12-11 10:14] LABS: Glucose Point of Care 163 (65-105)
--- NOTE | 2019-12-11 11:00 | PM.IMHP ---
H&P: HPI History of Present Illness Date/Time: 12/11/19 13:52 Chief complaint: CVA Narrative: Jose A Rodarte is a 69 year old male who is right-handed is admitted on the acute rehab floor with diagnosis of stroke With the acute infarcts involving the posterior left frontal lobe and the left temporal occipital region The patient was fully evaluated at the acute medical floor and is transferred here after has seen the Infectious Disease expert for the pleocytosis of his spinal fluid which was treated initially as if he had bacterial meningitis and all those antibiotics have been discontinued the CSF for herpes is negative The patient is a 69-year-old white male with known history of atrial fibrillation status post cardiac ablation on chronic anticoagulation, congestive heart failure, and hypertension who presented to [facility] on December 05, 2019 after being found to have altered mental status by his . Patient's states the patient was very quiet and did not want to eat breakfast the morning of admission. She mentioned that it is common for him to take naps in the afternoon so when he went to lay down she thought that was normal. When she went to check on him she found him sitting on the steps diaphoretic and had urinated on himself. The patient was not responding to her appropriately or answering questions. EMS was called and the patient was brought to the hospital and found to be in diabetic ketoacidosis. The patient has no previous history of diabetes mellitus. Routine labs were obtained which demonstrated a blood glucose of 1168, lactic acid of 5.1 and A1c was 11. The patient was hydrated and placed on IV insulin infusion. His blood sugars started draining down and he was placed on long-acting insulin. The patient was also found to be in the rapid atrial fibrillation with heart rate in the 130s and 140s. The patient also had systolic blood pressure in the 220s over 130s. The patient reported that he had a recent ablation at [facility] within the last few weeks. He was started on a Cardene drip for his severely elevated blood pressure and Cardiology was consulted. The patient was given Lopressor IV for his atrial fibrillation with rapid ventricular response. The patient received wide spectrum antibiotics including vancomycin and cefepime as he met sepsis criteria and his lactic acid was 5.1. Head CT was performed which did not demonstrate any acute intracranial pathology. Brain MRI demonstrated acute infarcts involving the posterior left frontal lobe and the left temporal occipital region. Echo showed an ejection fraction of 70%. Cardiology was consulted on December 06 and the discontinued the IV amiodarone and switch the patient to p.o. amiodarone 200 milligram b.i.d.. PO carvedilol 25 milligram b.i.d. was also started and it was noted to restart benazepril if needed. The patient underwent lumbar puncture on December 07 and final report showed moderate WBCs and no organism seen. Carotid Doppler was completed on December 08 and showed good candidate for the acute care rehab stroke specialty program. Infectious Disease was also consulted and stated per lumbar puncture results the patient has non infectious CSF flush pleocytosis and antimicrobials may be stopped. The patient needs physician monitoring and treatment of new diagnosis of type 2 diabetes mellitus atrial fibrillation with rapid ventricular response elevated troponins hyper bilirubin severe sepsis hyperosmolar hyperglycemic state, dehydration, tachycardia, hypocalcemia, pulmonary hypertension, DKA, anemia, hypokalemia, hyperglycemia, apnea, acute encephalopathy. The patient is awake alert x4 he will be discharged [facility] with follow-up as outpatient with Cardiology in 2 weeks after discharge from rehab. The patient has not traveled outside the [place] contact with someone who is in that has traveled outside the [place] in the past 21 days. The patient has not t
[2019-12-11 11:59] LABS: Glucose Point of Care 234 (65-105)
[2019-12-11] MEDS: INSULIN ASPART (*BKC) 100 UNITS/ML SUB-Q ×2 (12:48→17:57)
[2019-12-11 13:31] VITALS: BMI 37.5
[2019-12-11 14:00] VITALS: BP 139/82; PULSE 96; RESP 18; TEMP 37.4; O2SAT 97
--- NOTE | 2019-12-11 15:35 | RPD ---
INDIVIDUALIZED PLAN OF CARE FOR Jose A Rodarte Brief Synthesis of Pre-Admission Screen, Post-Admission Evaluation and Therapy Evaluations: The patient presents to rehab with acute infarcts involving the posterior left frontal lobe and left temporal occipital region. Comorbidities include Atrial fibrillation with RVR, hypertension, nephrolithiasis, elevated troponins, hyperbilirubinemia, severe sepsis,hyperosmolar hyperglycemic state, dehydration, tachycardia, cardiomegaly, aortic atherosclerosis, hypocalcemia, pulmonary hypertension, DKA, anemia, hypokalemia, hyperglycemia, bilateral cataracts, chronic kidney disease, type 2 diabetes mellitus with ketoacidosis without coma, acute encephalopathy, apnea.The patient needs physician monitoring and treatment of new diagnosis of type 2 diabetes mellitus, atrial fibrillation with RVR, elevated troponins, severe sepsis, hyperosmolar hyperglycemic state, dehydration, tachycardia, pulmonary hypertension, DKA, anemia, and acute encephalopathy. He requires monitoring for adverse reactions to new medications, monitoring of infection, and pain control. The patient requires nursing services for frequent neuro checks, anticoagulation therapy, medication management and education, pressure relief and skin care management, monitoring of labs, bowel and bladder training, diabetes management and education, and fall/safety precautions. Deficits include:ADLs, Balance, Cognition, Endurance, Family Training/Education, Mobility, Pain Management, ROM, Safety, Speech, Strength, Swallowing, Transfers Account Development Specialist/Case Management for: Discharge Planning and Patient/Family Counseling Physical Therapy: 5 days per week for 60 minutes. Treatments may include: Therapeutic Exercise, Gait Training, Neuromuscular Re-education, Transfer Training, Community Reintegration, Bed Mobility, Patient/Family Education, Wheelchair Mobility Group Therapy/Concurrent Therapy Rationales: -Improve attention span during functional activities in a distracted environment. -Enhance problem solving and/or adequate judgment skills during functional activities in a distracted environment. -Promote increased safety awareness in a distracted environment to reduce fall risk with functional tasks, transfers, and ambulation to allow a more safe, self-sufficient return to the home environment. -Improve dynamic balance skills to promote safety and independence with functional activities in a distracted environment for maximum gain. Occupational Therapy: 5 days per week for 60 minutes. Treatments may include: Therapeutic Exercise, Therapeutic Activity, Cognitive Training, Self-Care Transfer Training, Community Reintegration, Home Management, Patient/Family Education, Wheelchair Mobility Training, Energy Conservation Training Group Therapy/Concurrent Therapy Rationales: -Allow therapist to observe and teach generalization and carry-over of skills learned in individual therapy. -Enhance problem solving and sequencing skills during therapeutic activities in a distracted environment. -Promote increased safety awareness in a realistic setting to reduce fall risk with functional tasks due to visual and verbal distractions. -Increase functional level with ADLs, ADL transfers and use of adaptive equipment through therapeutic activities with others while promoting safety to allow a more safe, self-sufficient return home. Speech Therapy: 5 days per week for 60 minutes. Treatments may include: Dysphasia Therapy, Speech/Language/Communication Therapy, Cognitive Training, Patient/Family Education Group Therapy/Concurrent Therapy - Rationale: -Allow therapist to observe and teach generalization and carry-over of skills learned in individual therapy. -Improve comprehension skills with complex or abstract ideas through discussion in a realistic setting. -Enhance problem solving skills with complex issues during activities in a distracted environment. -Promote increased memory skills and concentra
[2019-12-11 17:20] LABS: Glucose Point of Care 227 (65-105)
[2019-12-11 19:50] VITALS: PULSE 88; RESP 18; O2SAT 97
[2019-12-11 20:08] VITALS: PULSE 88
--- NOTE | 2019-12-11 20:22 | PC.NURSE ---
Late entry: During one of Jose A's therapy sessions the therapist noted some blood running down his scrotum it appeared onto the pad while getting cleaned up. Upon inspection this filing writer was unable to note any active bleeding, spreading buttocks and inspecting scrotum. Had him sit on fresh towel and no blood noted. Passed this on to Dr. Craven and oncoming shift to monitor.
[2019-12-11 21:47] VITALS: BP 158/100; PULSE 93; RESP 20; TEMP 36.8; O2SAT 97
[2019-12-12] MEDS: CENTRAL LINE FLUSH 10 ML IV PUSH ×4 (01:28→20:36)
[2019-12-12 05:57] VITALS: BP 181/89; PULSE 89; RESP 20; TEMP 36.3; O2SAT 97
[2019-12-12 07:14] LABS: Glucose Point of Care 196 (65-105)
[2019-12-12 08:59] VITALS: PULSE 68
[2019-12-12] MEDS: APIXABAN 5 MG TABLET PO ×2 (08:59→20:33)
[2019-12-12] MEDS: carvediloL 25 MG TABLET PO ×2 (08:59→20:34)
[2019-12-12] MEDS: FUROSEMIDE 40 MG TABLET PO (09:01)
[2019-12-12] MEDS: lisinopriL 20 MG TABLET 40 MG PO (09:02)
[2019-12-12 11:47] LABS: Glucose Point of Care 218 (65-105)
[2019-12-12] MEDS: INSULIN ASPART (*BKC) 100 UNITS/ML SUB-Q ×2 (11:57→17:19)
[2019-12-12 14:00] VITALS: BP 146/83; PULSE 87; RESP 18; TEMP 36.5; O2SAT 98
--- NOTE | 2019-12-12 16:34 | WPDNEURORHBP ---
Subjective Date/time seen: 12/12/19 16:34 Interval history: this 69-year-old gentleman is here after having had stroke of the left cerebral hemisphere doing fairly well improving overall denies any headache nausea vomiting chest pain shortness of breath and looking forward to be going home Review of Systems Review of Systems: All systems reviewed & are unremarkable except as noted in HPI and below Functional Status Ambulation Ability Ability to Ambulate 10 Feet: Minimum Assistance X 1 Ability to Ambulate 50 Feet With 2 Turns: Minimum Assistance X 1 Ambulation Assistive Devices: None Transfers Ability Ability to Transfer In/Out of Chair: Contact Guard Exam Narrative: Exam Narrative: patient is awake alert well oriented follows all commands speech language function and cognitive function is improving and generalized weakness is improving cardiac status is stable lungs are clear to auscultation abdomen some tender head is normocephalic eyes here no sore unremarkable and extraocular movements are full Objective Data Vital Signs Vital Signs: Vital Signs - 24 hr 12/11/19 19:50 12/11/19 20:08 12/11/19 21:47 Temperature 36.8 C Pulse Rate 88 88 93 Respiratory Rate 18 20 Blood Pressure 158/100 H Pulse Oximetry 97 97 12/12/19 05:57 12/12/19 08:59 12/12/19 14:00 Temperature 36.3 C L 36.5 C Pulse Rate 89 68 87 Respiratory Rate 20 18 Blood Pressure 181/89 H 146/83 H Pulse Oximetry 97 98 Intake/Output Intake/Output: Intake & Output 12/09/19 12/10/19 12/11/19 12/12/19 23:59 23:59 23:59 23:59 Intake Total 1440 440 Output Total 1550 525 Balance -110 -85 Meds/Results Medications: Active Medications Generic Name Dose Route Start Last Admin Trade Name Freq PRN Reason Stop Dose Admin Apixaban 5 mg 12/10/19 21:00 12/12/19 08:59 Apixaban 5 Mg Tablet PO 5 mg Q12HR SUYAPA Administration Carvedilol 25 mg 12/10/19 21:00 12/12/19 08:59 Carvedilol 25 Mg Tablet PO 25 mg Q12HR SYUAPA Administration Dextrose 12.5 gm 12/10/19 18:22 Dextrose 50% 25 Gm/50 Ml Syringe IV PUSH PRN PRN Hypoglycemia Protocol Furosemide 40 mg 12/11/19 09:00 12/12/19 09:01 Furosemide 40 Mg Tablet PO 40 mg DAILY SUYAPA Administration Glucagon 1 mg 12/10/19 18:22 Glucagon For Inj 1 Mg Vial IM PRN PRN Hypoglycemia Protocol Glucose 15 gm 12/10/19 18:22 Glucose Oral Gel 15 Gm Of Glucse In 37.5 Gm Tube PO PRN PRN Hypoglycemia Protocol Dextrose 1,000 mls @ 100 mls/hr 12/10/19 18:22 Dextrose 5% 1,000 Ml IVPB PRN PRN Hypoglycemia Protocol Insulin Aspart 2 - 5 units 12/11/19 08:00 12/12/19 11:57 Insulin Aspart (*Bkc) 100 Units/Ml SUB-Q 2 units TIDWM SUYAPA Administration Protocol Lisinopril 40 mg 12/11/19 09:00 12/12/19 09:02 Lisinopril 20 Mg Tablet PO 01/10/20 09:01 40 mg DAILY SUYAPA Administration Sodium Chloride 10 ml 12/11/19 22:00 12/12/19 14:09 Central Line Flush IV PUSH 10 ml Q8HR SUYAPA Administration Sodium Chloride 10 ml 12/11/19 20:29 Central Line Flush IV PUSH PRN PRN with TPN bag changes Sodium Chloride 20 ml 12/11/19 20:29 Central Line Flush IV PUSH PRN PRN after blood draws Labs Labs: Laboratory Results - last 24 hr 12/11/19 12/12/19 12/12/19 17:15 06:57 11:42 POC Capillary Glucose 227 H 196 H 218 H Progress Note: A&P Assessment and Plan (1) CSF pleocytosis: Code(s): D72.9 - Disorder of white blood cells, unspecified Status: Acute (2) Acute ischemic stroke: Code(s): I63.9 - Cerebral infarction, unspecified Status: Acute (3) Hyperbilirubinemia: Code(s): E80.6 - Other disorders of bilirubin metabolism Status: Acute (4) Atrial fibrillation with rapid ventricular response: Code(s): I48.91 - Unspecified atrial fibrillation Status: Acute (5) Hypertensive emergency:
[2019-12-12 17:01] LABS: Glucose Point of Care 237 (65-105)
[2019-12-12 20:00] VITALS: BP 160/104; PULSE 84; RESP 16; O2SAT 100
[2019-12-12 20:34] VITALS: PULSE 87
[2019-12-12 22:00] VITALS: PULSE 84; RESP 16; TEMP 37.1; O2SAT 100
--- NOTE | 2019-12-12 23:20 | PC.NURSE ---
Call was placed to Dr. Craven regarding pt. blood pressure of 145/107 via machine at 2200. then blood pressure was 160/104 taken manually at 2300. heart rate is 84. patient does not have any complaints of headaches, chest pain, jaw pain, dizziness and is not diaphoretic. Patient states he feels fine. Per Dr. Craven give NOrvasc 5m po one time now. will continue to monitor.
[2019-12-12] MEDS: amLODIPine BESYLATE 5 MG TABLET PO (23:35)
[2019-12-13 06:00] VITALS: BP 135/88; PULSE 80; RESP 16; TEMP 36.4; O2SAT 98
[2019-12-13] MEDS: CENTRAL LINE FLUSH 10 ML IV PUSH ×2 (06:31→13:06)
[2019-12-13 06:58] LABS: Glucose Point of Care 215 (65-105)
[2019-12-13 09:45] VITALS: PULSE 78; RESP 16; O2SAT 98
[2019-12-13 09:52] VITALS: PULSE 78
[2019-12-13] MEDS: FUROSEMIDE 40 MG TABLET PO (09:52)
[2019-12-13] MEDS: APIXABAN 5 MG TABLET PO ×2 (09:52→19:48)
[2019-12-13] MEDS: carvediloL 25 MG TABLET PO ×2 (09:52→19:48)
[2019-12-13] MEDS: lisinopriL 20 MG TABLET 40 MG PO (09:52)
[2019-12-13] MEDS: INSULIN ASPART (*BKC) 100 UNITS/ML SUB-Q ×3 (09:55→17:37)
[2019-12-13 11:36] LABS: Glucose Point of Care 207 (65-105)
[2019-12-13 14:00] VITALS: BP 135/78; PULSE 73; RESP 18; TEMP 36.9; O2SAT 96
--- NOTE | 2019-12-13 15:38 | WPDNEURORHBP ---
Subjective Date/time seen: 12/13/19 15:38 Interval history: this 69-year-old gentleman is here after having had the left hemispheric stroke most likely related to atrial fibrillation he is doing remarkably well his vital signs are stable except to 1 elevation of the blood pressure last night now the blood pressure is relatively in the decent range denies any headache nausea vomiting chest pain shortness of breath fever chills sore throat he wants to have his Walton catheter removed and also the PICC line where he is not receiving any medication at this time Review of Systems Review of Systems: All systems reviewed & are unremarkable except as noted in HPI and below Functional Status Ambulation Ability Ability to Ambulate 10 Feet: Minimum Assistance X 1 Ability to Ambulate 50 Feet With 2 Turns: Minimum Assistance X 1 Ability to Ambulate 150 Feet: Minimum Assistance X 1 Ambulation Assistive Devices: Walker, Wheeled Transfers Ability Ability to Transfer In/Out of Chair: Contact Guard Exam Narrative: Exam Narrative: patient is awake alert well oriented time place and person is speech is much more fluent he is able to use his right side better than before working with rehab ENT examination is normal eyes examination is normal lungs are clear cardiovascular examination is stable abdomen is soft not tender extremities reveal no deformities Objective Data Vital Signs Vital Signs: Vital Signs - 24 hr 12/12/19 20:00 12/12/19 20:34 12/12/19 22:00 Temperature 37.1 C Pulse Rate 84 87 84 Respiratory Rate 16 16 Blood Pressure 160/104 H Pulse Oximetry 100 100 12/13/19 06:00 12/13/19 09:45 12/13/19 09:52 Temperature 36.4 C L Pulse Rate 80 78 78 Respiratory Rate 16 16 Blood Pressure 135/88 Pulse Oximetry 98 98 12/13/19 14:00 Temperature 36.9 C Pulse Rate 73 Respiratory Rate 18 Blood Pressure 135/78 Pulse Oximetry 96 Intake/Output Intake/Output: Intake & Output 12/10/19 12/11/19 12/12/19 12/13/19 23:59 23:59 23:59 23:59 Intake Total 1440 1430 720 Output Total 1550 5 500 Balance -110 -595 220 Meds/Results Medications: Active Medications Generic Name Dose Route Start Last Admin Trade Name Freq PRN Reason Stop Dose Admin Apixaban 5 mg 12/10/19 21:00 12/13/19 09:52 Apixaban 5 Mg Tablet PO 5 mg Q12HR SUYAPA Administration Carvedilol 25 mg 12/10/19 21:00 12/13/19 09:52 Carvedilol 25 Mg Tablet PO 25 mg Q12HR SUYAPA Administration Dextrose 12.5 gm 12/10/19 18:22 Dextrose 50% 25 Gm/50 Ml Syringe IV PUSH PRN PRN Hypoglycemia Protocol Furosemide 40 mg 12/11/19 09:00 12/13/19 09:52 Furosemide 40 Mg Tablet PO 40 mg DAILY SUYAPA Administration Glucagon 1 mg 12/10/19 18:22 Glucagon For Inj 1 Mg Vial IM PRN PRN Hypoglycemia Protocol Glucose 15 gm 12/10/19 18:22 Glucose Oral Gel 15 Gm Of Glucse In 37.5 Gm Tube PO PRN PRN Hypoglycemia Protocol Dextrose 1,000 mls @ 100 mls/hr 12/10/19 18:22 Dextrose 5% 1,000 Ml IVPB PRN PRN Hypoglycemia Protocol Insulin Aspart 2 - 5 units 12/11/19 08:00 12/13/19 12:09 Insulin Aspart (*Bkc) 100 Units/Ml SUB-Q 2 units TIDWM SUYAPA Administration Protocol Lisinopril 40 mg 12/11/19 09:00 12/13/19 09:52 Lisinopril 20 Mg Tablet PO 01/10/20 09:01 40 mg DAILY SUYAPA Administration Sodium Chloride 10 ml 12/11/19 22:00 12/13/19 13:06 Central Line Flush IV PUSH 10 ml Q8HR SUYAPA Administration Sodium Chloride 10 ml 12/11/19 20:29 Central Line Flush IV PUSH PRN PRN with TPN bag changes Sodium Chloride 20 ml 12/11/19 20:29 Central Line Flush IV PUSH PRN PRN after blood draws Labs Labs: Laboratory Results - last 24 hr 12/12/19 12/13/19 12/13/19 16:57 06:56 11:34 POC Capillary Glucose 237 H 215 H 207 H Progress Note: A&P Assessment and Plan (1) CSF pleocytosis: Code(s): D72.9
[2019-12-13 17:39] LABS: Glucose Point of Care 247 (65-105)
--- NOTE | 2019-12-13 18:13 | PC.NURSE ---
CLAUS PICC line d/c'd today. Anton cath d/c'd today. Per dr. Craven.
[2019-12-13 19:48] VITALS: PULSE 82
[2019-12-13 22:00] VITALS: BP 168/88; PULSE 86; RESP 17; TEMP 36.8; O2SAT 98
[2019-12-14 06:00] VITALS: BP 161/84; PULSE 88; RESP 16; TEMP 36.1; O2SAT 95
[2019-12-14 06:22] LABS: Glucose Point of Care 243 (65-105)
[2019-12-14] MEDS: INSULIN ASPART (*BKC) 100 UNITS/ML SUB-Q ×3 (07:09→17:00)
[2019-12-14] MEDS: amLODIPine BESYLATE 2.5 MG TABLET PO (08:22)
[2019-12-14] MEDS: FUROSEMIDE 40 MG TABLET PO (08:22)
[2019-12-14 08:23] VITALS: PULSE 84
[2019-12-14] MEDS: APIXABAN 5 MG TABLET PO ×2 (08:23→20:52)
[2019-12-14] MEDS: lisinopriL 20 MG TABLET 40 MG PO (08:23)
[2019-12-14] MEDS: carvediloL 25 MG TABLET PO ×2 (08:23→20:52)
[2019-12-14 11:48] LABS: Glucose Point of Care 209 (65-105)
[2019-12-14 14:00] VITALS: BP 112/73; PULSE 86; RESP 18; TEMP 36.1; O2SAT 98
[2019-12-14 16:56] LABS: Glucose Point of Care 245 (65-105)
[2019-12-14 20:00] VITALS: PULSE 83; RESP 20; O2SAT 96
[2019-12-14 20:15] VITALS: BP 143/74; PULSE 83; RESP 20; TEMP 36.4; O2SAT 96
[2019-12-14 20:52] VITALS: PULSE 83
[2019-12-15 05:18] VITALS: BP 133/85; PULSE 87; RESP 18; TEMP 35.9; O2SAT 98
[2019-12-15 06:54] LABS: Glucose Point of Care 215 (65-105)
[2019-12-15] MEDS: INSULIN ASPART (*BKC) 100 UNITS/ML SUB-Q ×2 (07:21→12:03)
[2019-12-15 07:27] VITALS: PULSE 88
[2019-12-15] MEDS: APIXABAN 5 MG TABLET PO ×2 (07:27→20:59)
[2019-12-15] MEDS: carvediloL 25 MG TABLET PO ×2 (07:27→20:59)
[2019-12-15] MEDS: FUROSEMIDE 40 MG TABLET PO (07:27)
[2019-12-15] MEDS: amLODIPine BESYLATE 2.5 MG TABLET PO (07:27)
[2019-12-15] MEDS: lisinopriL 20 MG TABLET 40 MG PO (07:27)
--- NOTE | 2019-12-15 09:06 | PCPTNOTE ---
Jose A Lara Cayden was evaluated for a wheeled walker on 12/15/2019 by this physical therapist. The wheeled walker will resolve patient's mobility limitations and will be used for mobility within the home. The patient can safely use the wheeled walker. ?The wheeled walker will resolve the patient?s mobility deficits, including gait and transfers.
[2019-12-15 12:01] LABS: Glucose Point of Care 212 (65-105)
--- NOTE | 2019-12-15 12:21 | WPDNEURORHBP ---
Subjective Date/time seen: 12/15/19 12:21 Interval history: this pleasant 69-year-old is here after having had the left hemispheric stroke with subtle speech defect and right-sided weakness he is improving quite a bit we discussed in the team conference and gets a good report card is walking with the wheel walker remarkably well denies any headache nausea vomiting change in the mental status fever chills sore Review of Systems Review of Systems: All systems reviewed & are unremarkable except as noted in HPI and below Functional Status Ambulation Ability Ability to Ambulate 10 Feet: Standby Assistance Ability to Ambulate 50 Feet With 2 Turns: Standby Assistance Ability to Ambulate 150 Feet: Standby Assistance Ambulation Assistive Devices: Walker, Wheeled Transfers Ability Ability to Transfer In/Out of Chair: Contact Guard Exam Narrative: Exam Narrative: patient is awake alert well oriented improving overall eyes are normal at this will lungs are clear to auscultation cardiovascular examination is stable abdomen is soft and tender extremities told revealed reformatted the aphasic defect and the right-sided weakness is improving quite a bit Objective Data Vital Signs Vital Signs: Vital Signs - 24 hr 12/14/19 14:00 12/14/19 20:00 12/14/19 20:15 Temperature 36.1 C L 36.4 C L Pulse Rate 86 83 83 Respiratory Rate 18 20 20 Blood Pressure 112/73 143/74 H Pulse Oximetry 98 96 96 12/14/19 20:52 12/15/19 05:18 12/15/19 07:27 Temperature 35.9 C L Pulse Rate 83 87 88 Respiratory Rate 18 Blood Pressure 133/85 Pulse Oximetry 98 Intake/Output Intake/Output: Intake & Output 12/12/19 12/13/19 12/14/19 12/15/19 23:59 23:59 23:59 23:59 Intake Total 8011 071 0436 240 Output Total 2024 500 500 Balance -595 460 970 240 Meds/Results Medications: Active Medications Generic Name Dose Route Start Last Admin Trade Name Freq PRN Reason Stop Dose Admin Amlodipine Besylate 2.5 mg 12/14/19 09:00 12/15/19 07:27 Amlodipine Besylate 2.5 Mg Tablet PO 2.5 mg QAM SUYAPA Administration Apixaban 5 mg 12/10/19 21:00 12/15/19 07:27 Apixaban 5 Mg Tablet PO 5 mg Q12HR SUYAPA Administration Carvedilol 25 mg 12/10/19 21:00 12/15/19 07:27 Carvedilol 25 Mg Tablet PO 25 mg Q12HR SUYAPA Administration Dextrose 12.5 gm 12/10/19 18:22 Dextrose 50% 25 Gm/50 Ml Syringe IV PUSH PRN PRN Hypoglycemia Protocol Furosemide 40 mg 12/11/19 09:00 12/15/19 07:27 Furosemide 40 Mg Tablet PO 40 mg DAILY SUYAPA Administration Glucagon 1 mg 12/10/19 18:22 Glucagon For Inj 1 Mg Vial IM PRN PRN Hypoglycemia Protocol Glucose 15 gm 12/10/19 18:22 Glucose Oral Gel 15 Gm Of Glucse In 37.5 Gm Tube PO PRN PRN Hypoglycemia Protocol Dextrose 1,000 mls @ 100 mls/hr 12/10/19 18:22 Dextrose 5% 1,000 Ml IVPB PRN PRN Hypoglycemia Protocol Insulin Aspart 2 - 5 units 12/11/19 08:00 12/15/19 12:03 Insulin Aspart (*Bkc) 100 Units/Ml SUB-Q 2 units TIDWM SUYAPA Administration Protocol Lisinopril 40 mg 12/11/19 09:00 12/15/19 07:27 Lisinopril 20 Mg Tablet PO 01/10/20 09:01 40 mg DAILY SUYAPA Administration Sodium Chloride 10 ml 12/11/19 20:29 Central Line Flush IV PUSH PRN PRN with TPN bag changes Labs Labs: Laboratory Results - last 24 hr 12/14/19 12/15/19 12/15/19 16:49 06:38 11:55 POC Capillary Glucose 245 H 215 H 212 H Progress Note: A&P Assessment and Plan (1) Hypertension: Code(s): I10 - Essential (primary) hypertension Status: Acute (2) CSF pleocytosis: Code(s): D72.9 - Disorder of white blood cells, unspecified Status: Acute (3) Acute ischemic stroke: Code(s): I63.9 - Cerebral infarction, unspecified Status: Acute Additional Plan discussed in the team conference and the questions were answered to the family members will continue the
[2019-12-15 14:00] VITALS: BP 127/51; PULSE 80; RESP 16; TEMP 36.4; O2SAT 99
--- NOTE | 2019-12-15 14:16 | PC.NURSE ---
spoke with school vocational educator she will be up here sunday 12/17 to speak with patient
--- NOTE | 2019-12-15 16:45 | PC.NURSE ---
Patient given educational materials on eliquis, a-fib, and diabetes management, encouraged to ask any questions
[2019-12-15 17:05] LABS: Glucose Point of Care 180 (65-105)
[2019-12-15 20:59] VITALS: PULSE 80
[2019-12-15 22:00] VITALS: BP 164/98; PULSE 92; RESP 17; TEMP 36.3; O2SAT 97
[2019-12-16 06:00] VITALS: BP 147/95; PULSE 71; RESP 16; TEMP 36.6; O2SAT 99
[2019-12-16] MEDS: glipiZIDE 2.5 MG TABLET PO (06:56)
[2019-12-16 06:57] LABS: Glucose Point of Care 215 (65-105)
[2019-12-16] MEDS: FUROSEMIDE 40 MG TABLET PO (10:23)
[2019-12-16 10:24] VITALS: PULSE 72
[2019-12-16] MEDS: amLODIPine BESYLATE 2.5 MG TABLET PO (10:24)
[2019-12-16] MEDS: APIXABAN 5 MG TABLET PO ×2 (10:24→20:00)
[2019-12-16] MEDS: carvediloL 25 MG TABLET PO ×2 (10:24→20:00)
[2019-12-16] MEDS: lisinopriL 20 MG TABLET 40 MG PO (10:24)
[2019-12-16] MEDS: INSULIN ASPART (*BKC) 100 UNITS/ML SUB-Q (10:27)
[2019-12-16 10:30] VITALS: PULSE 72; RESP 16; O2SAT 99
--- NOTE | 2019-12-16 12:10 | WPDNEURORHBP ---
Subjective Date/time seen: 12/16/19 12:10 Interval history: this 69-year-old gentleman with a history of underlying atrial fibrillation is here after having had the left hemispheric stroke his him speech has significantly improved and right-sided weakness is improving is doing remarkably well without any headache nausea vomiting chest pain shortness of breath fever chills sore throat Review of Systems Review of Systems: All systems reviewed & are unremarkable except as noted in HPI and below Functional Status Ambulation Ability Ability to Ambulate 10 Feet: Standby Assistance Ability to Ambulate 50 Feet With 2 Turns: Standby Assistance Ability to Ambulate 150 Feet: Standby Assistance Ambulation Assistive Devices: Walker, Wheeled Transfers Ability Ability to Transfer In/Out of Chair: Contact Guard Exam Narrative: Exam Narrative: patient is awake alert well oriented time place and person speech language functions are normal cranial exam shows normal right-sided weakness is improving speech has significantly improved the cardiac examination reveals controlled AFib abdomen is soft nontender extremities reveal no deformities head and neck region is unremarkable Objective Data Vital Signs Vital Signs: Vital Signs - 24 hr 12/15/19 14:00 12/15/19 20:59 12/15/19 22:00 Temperature 36.4 C L 36.3 C L Pulse Rate 80 80 92 Respiratory Rate 16 17 Blood Pressure 127/51 L 164/98 H Pulse Oximetry 99 97 12/16/19 06:00 12/16/19 10:24 Temperature 36.6 C Pulse Rate 71 72 Respiratory Rate 16 Blood Pressure 147/95 H Pulse Oximetry 99 Intake/Output Intake/Output: Intake & Output 12/13/19 12/14/19 12/15/19 12/16/19 23:59 23:59 23:59 23:59 Intake Total 960 1470 1920 240 Output Total 159 301 4202 Balance 460 970 470 240 Meds/Results Medications: Active Medications Generic Name Dose Route Start Last Admin Trade Name Freq PRN Reason Stop Dose Admin Amlodipine Besylate 2.5 mg 12/14/19 09:00 12/16/19 10:24 Amlodipine Besylate 2.5 Mg Tablet PO 2.5 mg QAM SUYAPA Administration Apixaban 5 mg 12/10/19 21:00 12/16/19 10:24 Apixaban 5 Mg Tablet PO 5 mg Q12HR SUYAPA Administration Carvedilol 25 mg 12/10/19 21:00 12/16/19 10:24 Carvedilol 25 Mg Tablet PO 25 mg Q12HR SUYAPA Administration Dextrose 12.5 gm 12/10/19 18:22 Dextrose 50% 25 Gm/50 Ml Syringe IV PUSH PRN PRN Hypoglycemia Protocol Furosemide 40 mg 12/11/19 09:00 12/16/19 10:23 Furosemide 40 Mg Tablet PO 40 mg DAILY SUYAPA Administration Glipizide 2.5 mg 12/16/19 06:30 12/16/19 06:56 Glipizide 2.5 Mg Tablet PO 2.5 mg DAILY@0630 SUYAPA Administration Glucagon 1 mg 12/10/19 18:22 Glucagon For Inj 1 Mg Vial IM PRN PRN Hypoglycemia Protocol Glucose 15 gm 12/10/19 18:22 Glucose Oral Gel 15 Gm Of Glucse In 37.5 Gm Tube PO PRN PRN Hypoglycemia Protocol Dextrose 1,000 mls @ 100 mls/hr 12/10/19 18:22 Dextrose 5% 1,000 Ml IVPB PRN PRN Hypoglycemia Protocol Insulin Aspart 2 - 5 units 12/11/19 08:00 12/16/19 10:27 Insulin Aspart (*Bkc) 100 Units/Ml SUB-Q 2 units TIDWM SUYAPA Administration Protocol Lisinopril 40 mg 12/11/19 09:00 12/16/19 10:24 Lisinopril 20 Mg Tablet PO 01/10/20 09:01 40 mg DAILY SUYAPA Administration Sodium Chloride 10 ml 12/11/19 20:29 Central Line Flush IV PUSH PRN PRN with TPN bag changes Labs Labs: Laboratory Results - last 24 hr 12/15/19 12/16/19 16:56 06:54 POC Capillary Glucose 180 H 215 H Progress Note: A&P Assessment and Plan (1) Hypertension: Code(s): I10 - Essential (primary) hypertension Status: Acute (2) CSF pleocytosis: Code(s): D72.9 - Disorder of white blood cells, unspecified Status: Acute (3) Acute ischemic stroke: Code(s): I63.9 - Cerebral infarction, unspecified Status: Acute (4) Atrial fibrillation wit
[2019-12-16 14:00] VITALS: BP 116/67; PULSE 87; RESP 22; TEMP 36.1; O2SAT 98
[2019-12-16 17:01] LABS: Glucose Point of Care 118 (65-105)
[2019-12-16 17:01] LABS: Glucose Point of Care 110 (65-105)
[2019-12-16 20:00] VITALS: PULSE 78
[2019-12-16 22:00] VITALS: BP 123/72; PULSE 87; RESP 17; TEMP 36; O2SAT 96
[2019-12-17 06:00] VITALS: BP 147/94; PULSE 72; RESP 16; TEMP 36.1; O2SAT 96
[2019-12-17 06:33] LABS: Glucose Point of Care 155 (65-105)
[2019-12-17] MEDS: glipiZIDE 2.5 MG TABLET PO (06:34)
[2019-12-17 08:28] VITALS: PULSE 72
[2019-12-17] MEDS: amLODIPine BESYLATE 2.5 MG TABLET PO (08:28)
[2019-12-17] MEDS: FUROSEMIDE 40 MG TABLET PO (08:28)
[2019-12-17] MEDS: lisinopriL 20 MG TABLET 40 MG PO (08:28)
[2019-12-17] MEDS: carvediloL 25 MG TABLET PO ×2 (08:28→21:30)
[2019-12-17] MEDS: APIXABAN 5 MG TABLET PO ×2 (09:31→21:30)
[2019-12-17 11:56] LABS: Glucose Point of Care 145 (65-105)
[2019-12-17 14:00] VITALS: BP 111/59; PULSE 85; RESP 20; TEMP 36.3; O2SAT 98
[2019-12-17 17:03] LABS: Glucose Point of Care 165 (65-105)
[2019-12-17 21:30] VITALS: PULSE 86
[2019-12-17 22:00] VITALS: BP 146/97; PULSE 86; RESP 18; TEMP 36.1; O2SAT 96
[2019-12-18 05:01] LABS: Basophils Absolute Auto 0.1 K/mm3 (0.0-0.1); Basophils Percent Auto 1.9 % (0.2-1.2); Eosinophils Absolute Auto 0.2 K/mm3 (0-0.3); Eosinophils Percent Auto 2.8 % (0-4.4); Hematocrit 37.1 % (42.0-52.0); Hemoglobin 12.7 g/dL (14.0-18.0); Immature Granulocyte Absolute 0.02 K/mm3 (0.00-0.031); Immature Granulocyte Percent A 0.4 % (0-0.5); Lymphocytes Absolute Auto 1.18 K/mm3 (0.9-3.2); Lymphocytes Percent Auto 21.9 % (18.3-44.2); Mean Corpuscular HGB Conc 34.2 g/dl (32-36); Mean Corpuscular Hemoglobin 31.3 pg (26-34); Mean Corpuscular Volume 91.4 fl (80-100); Mean Platelet Volume 10.9 fl (7.4-10.4); Monocytes Absolute Auto 0.6 K/mm3 (0.1-0.6); Monocytes Percent Auto 10.2 % (2.6-8.5); Neutrophils Absolute Auto 3.4 K/mm3 (1.3-6.7); Neutrophils Percent Auto 62.8 % (45.5-73.1); Platelet Count Result 203 k/mm3 (150-375); Red Blood Count 4.06 M/mm3 (4.6-6.20); Red Cell Distribution Width 14.6 % (11.5-14.5); White Blood Count 5.4 K/mm3 (4.5-10.0)
[2019-12-18 05:16] LABS: Anion Gap 7 mmol/L (8-16); Blood Urea Nitrogen 20 mg/dL (9-20); Calcium 8.5 mg/dL (8.4-10.2); Carbon Dioxide 27 mmol/L (22-30); Chloride 106 mmol/L (98-107); Estimated CRCL calculation 49 ml/min; Estimated Glomerular Filt Rate 43; Glucose 168 mg/dL (75-110); Potassium 3.2 mmol/L (3.4-5.0); Sodium 140 mmol/L (137-145)
[2019-12-18 06:00] VITALS: BP 137/98; PULSE 67; RESP 18; TEMP 36; O2SAT 95
[2019-12-18] MEDS: glipiZIDE 2.5 MG TABLET PO (06:12)
[2019-12-18 06:42] LABS: Glucose Point of Care 177 (65-105)
[2019-12-18] MEDS: APIXABAN 5 MG TABLET PO ×2 (08:43→20:24)
[2019-12-18] MEDS: FUROSEMIDE 40 MG TABLET PO (08:43)
[2019-12-18] MEDS: amLODIPine BESYLATE 2.5 MG TABLET PO (08:43)
[2019-12-18] MEDS: lisinopriL 20 MG TABLET 40 MG PO (08:43)
[2019-12-18 08:44] VITALS: PULSE 68
[2019-12-18] MEDS: carvediloL 25 MG TABLET PO ×2 (08:44→20:24)
--- NOTE | 2019-12-18 11:10 | WPDNEURORHBP ---
Subjective Date/time seen: 12/18/19 11:10 Interval history: this 69-year-old gentleman is here after having had the left hemispheric stroke progressing quite well denies any headache nausea vomiting chest pain shortness of breath he does have controlled atrial fibrillation and is on apixaban Review of Systems Review of Systems: All systems reviewed & are unremarkable except as noted in HPI and below Functional Status Ambulation Ability Ability to Ambulate 10 Feet: Independent Ability to Ambulate 50 Feet With 2 Turns: Independent Ability to Ambulate 150 Feet: Independent Ambulation Assistive Devices: Walker, Wheeled Transfers Ability Ability to Transfer In/Out of Chair: Independent Exam Narrative: Exam Narrative: patient is awake alert well oriented his speech is significantly better weakness is improving examination of eyes ear nose throat normal neck is supple lungs are clear atrial fibrillation is well controlled and the abdomen is soft nontender extremities reveal no deformities Objective Data Vital Signs Vital Signs: Vital Signs - 24 hr 12/17/19 14:00 12/17/19 21:30 12/17/19 22:00 Temperature 36.3 C L 36.1 C L Pulse Rate 85 86 86 Respiratory Rate 20 18 Blood Pressure 111/59 L 146/97 H Pulse Oximetry 98 96 12/18/19 06:00 12/18/19 08:44 Temperature 36.0 C L Pulse Rate 67 68 Respiratory Rate 18 Blood Pressure 137/98 H Pulse Oximetry 95 Intake/Output Intake/Output: Intake & Output 12/15/19 12/16/19 12/17/19 12/18/19 23:59 23:59 23:59 23:59 Intake Total 1920 240 720 240 Output Total 1450 Balance 470 240 720 240 Meds/Results Medications: Active Medications Generic Name Dose Route Start Last Admin Trade Name Freq PRN Reason Stop Dose Admin Amlodipine Besylate 2.5 mg 12/14/19 09:00 12/18/19 08:43 Amlodipine Besylate 2.5 Mg Tablet PO 2.5 mg QAM SUYAPA Administration Apixaban 5 mg 12/10/19 21:00 12/18/19 08:43 Apixaban 5 Mg Tablet PO 5 mg Q12HR SUYAPA Administration Carvedilol 25 mg 12/10/19 21:00 12/18/19 08:44 Carvedilol 25 Mg Tablet PO 25 mg Q12HR SUYAPA Administration Dextrose 12.5 gm 10/15/20 18:22 Dextrose 50% 25 Gm/50 Ml Syringe IV PUSH PRN PRN Hypoglycemia Protocol Furosemide 40 mg 12/11/19 09:00 12/18/19 08:43 Furosemide 40 Mg Tablet PO 40 mg DAILY SUYAPA Administration Glipizide 2.5 mg 12/16/19 06:30 12/18/19 06:12 Glipizide 2.5 Mg Tablet PO 2.5 mg DAILY@0630 SUYAPA Administration Glucagon 1 mg 12/10/19 18:22 Glucagon For Inj 1 Mg Vial IM PRN PRN Hypoglycemia Protocol Glucose 15 gm 12/10/19 18:22 Glucose Oral Gel 15 Gm Of Glucse In 37.5 Gm Tube PO PRN PRN Hypoglycemia Protocol Dextrose 1,000 mls @ 100 mls/hr 12/10/19 18:22 Dextrose 5% 1,000 Ml IVPB PRN PRN Hypoglycemia Protocol Insulin Aspart 2 - 5 units 12/11/19 08:00 12/18/19 08:42 Insulin Aspart (*Bkc) 100 Units/Ml SUB-Q Not Given TIDWM SUYAPA Protocol Lisinopril 40 mg 12/11/19 09:00 12/18/19 08:43 Lisinopril 20 Mg Tablet PO 01/10/20 09:01 40 mg DAILY SUYAPA Administration Sodium Chloride 10 ml 12/11/19 20:29 Central Line Flush IV PUSH PRN PRN with TPN bag changes Labs Labs: Laboratory Results - last 24 hr 12/17/19 12/17/19 12/18/19 11:53 17:01 04:46 WBC 5.4 RBC 4.06 L Hgb 12.7 L Hct 37.1 L MCV 91.4 MCH 31.3 MCHC 34.2 RDW 14.6 H Plt Count 203 MPV 10.9 H Immature Gran % (Auto) 0.4 Neut % (Auto) 62.8 Lymph % (Auto) 21.9 [place] % (Auto) 10.2 H Eos % (Auto) 2.8 Baso % (Auto) 1.9 H Lymph # (Auto) 1.18 [place] # (Auto) 0.6 Eos # (Auto) 0.2 Baso # (Auto) 0.1 Abs Immat Gran (auto) 0.02 Absolute Neuts (auto) 3.4 Absolute Nucleated RBC 0.0 Nucleated RBC % 0.0 Sodium Potassium Chloride Carbon Dioxide Anion Gap BUN Creatinine Estim Creat Tammi
--- NOTE | 2019-12-18 11:21 | PCDIET ---
Nutrition Follow-Up Complete: Nutrition Diagnosis: Lack of nutrition related knowledge related to diabetes mellitus as evidenced by patient/ statements, new diagnosis of DM. Nutrition Goal: Patient to consume 75% of meals or greater. Goal met. Patient consuming 100% of most meals on diabetic, heart healthy diet which is appropriate. Patient reports good appetite; eager for discharge this weekend. Provided additional copy of Stroke Nutrition Therapy and Carbohydrate Counting from Nutrition Care Manual with RD contact information. Encouraged outpatient nutrition counseling upon discharge. Last recorded weight is 115.4 kg. Recommend obtaining new weight. Bowel Motility: Last BM on 12/15/19 per nursing flowsheet. Labs Reviewed: Hgb (12.7), Hct (37.1), Glu (168), Cr (1.6), K (3.2) Meds Noted: Norvasc, Coreg, Lasix, Glucotrol, Novolog, Prinivil Additional Notes: No documented skin breakdown. Recommend K+ replacement, if medically appropriate. Will continue to monitor with same goal. Nutrition Monitoring and Evaluation: Follow up every 7 days.
[2019-12-18 11:59] LABS: Glucose Point of Care 113 (65-105)
[2019-12-18 13:15] VITALS: BMI 37.5
[2019-12-18 14:00] VITALS: BP 117/61; PULSE 81; RESP 20; TEMP 36.6; O2SAT 97
[2019-12-18 17:22] LABS: Glucose Point of Care 150 (65-105)
[2019-12-18 20:23] LABS: Glucose Point of Care 189 (65-105)
[2019-12-18 20:24] VITALS: PULSE 80
[2019-12-18 20:35] VITALS: BP 147/78; PULSE 75; RESP 20; TEMP 36.1; O2SAT 96
[2019-12-19 05:12] VITALS: BP 132/74; PULSE 61; RESP 20; TEMP 36.4; O2SAT 97
[2019-12-19] MEDS: glipiZIDE 2.5 MG TABLET PO (06:43)
[2019-12-19 06:44] LABS: Glucose Point of Care 168 (65-105)
[2019-12-19 08:42] VITALS: PULSE 61
[2019-12-19] MEDS: APIXABAN 5 MG TABLET PO (08:42)
[2019-12-19] MEDS: FUROSEMIDE 40 MG TABLET PO (08:42)
[2019-12-19] MEDS: amLODIPine BESYLATE 2.5 MG TABLET PO (08:42)
[2019-12-19] MEDS: carvediloL 25 MG TABLET PO (08:42)
[2019-12-19] MEDS: lisinopriL 20 MG TABLET 40 MG PO (08:42)
[2019-12-19 11:38] LABS: Glucose Point of Care 102 (65-105)
--- NOTE | 2019-12-24 11:33 | PM.DS ---
DS: Admitting Diagnosis Admitting Diagnosis Admitting Diagnosis: CVA 69 years old right-handed male admitted to the acute rehab of [facility] with the diagnosis of his stroke involving the left frontal lobe and the left temporal lobe in addition to the comorbid conditions of 1. Hypertension. 2. Atrial fibrillation. 3. Congestive heart failure 4. diabetes with ketoacidosis patient in the past has the history of bilateral cataract extraction, and also history of nephrolithiasis. During the hospitalization here she has been actively involved in the physical therapy and occupational therapy and has not been followed by any other physician. During her most recent visit she was found to be ambulating independently up to 150ft with a wheeled walker and transferring in and out of chair independently her general physical examination was normal her heart rate was controlled abdomen is soft and neuro examination revealed no change. At the time of discharge patient was independent in all the modalities and she is being discharged to the home with outpatient therapy. During the entire hospitalization he she had no fall or injury. DS: Summary Time Spent with Patient Time attestation: Total time spent providing and/or coordinating discharge services: Discharge Plan Discharge Attending physician on discharge: Andres Craven Discharging Clinician: Andres Craven Anticipated Discharge Date/Time: 12/19/19 12:26 Patient Disposition: Home, Self-Care Activity: may shower and no driving Diet: heart healthy and diabetic Patient Instructions: Antibiotic Form, Apixaban (By mouth), A-fib (Atrial Fibrillation) (GEN), Pain Management (DC), Type 1 Diabetes in Adults: New Diagnosis (GEN), Chronic Hypertension (GEN), Self Care Measures After a Stroke (DC), Stroke (DC) Stand Alone Forms: General Discharge Information Follow-up/Referrals: Francisco Rainey MD [Physician] - Call for Appointment Akin Maya MD [Physician] - Call for Appointment Discharge Medications: New amlodipine 2.5 mg Tablet 2.5 mg PO QAM Qty: 30 RF: 0 glipizide 2.5 mg tablet extended release 24hr 2.5 mg PO DAILY Qty: 30 RF: 0 (DME) OneTouch Verio test strips Strip Qty: 1 RF: 0 (DME) lancets [OneTouch Delica Plus Lancet] 30 gauge Misc Qty: 1 RF: 0 Continued furosemide 40 mg Tablet 40 mg PO DAILY RF: 0 carvedilol 25 mg Tablet 25 mg PO BID RF: 0 benazepril 40 mg Tablet 40 mg PO DAILY RF: 0 Eliquis 5 mg Tablet 5 mg PO BID RF: 0 Other Ambulatory Orders: OT Outpatient Eval and Treat (ONCE) Timeframe: 20200108 Location: Determined by Patient Ordered By: Andres Craven PT Outpatient Eval and Treat (ONCE) Timeframe: 20200108 Location: Determined by Patient Ordered By: Andres Craven ST / Speech Therapy Outpatient Eval and Treat (ONCE) Timeframe: 20200108 Location: Determined by Patient Ordered By: Andres Craven Date of admission: 12/10/19 17:24 Primary Care Provider: PHYSICIAN,SUPERVISOR PRESSING DEPARTMENT Admitting Provider: Andres Craven Interventions: Discharge Disposition Last Done: 12/19/19 12:05 Attending physician on admission: Andres Craven
== END 2019-12-19 12:05 | disposition home or self-care (01) | DRG 57 ==
PROVIDERS: Admitting Provider Psychiatry & Neurology Neurology; Visit Provider Psychiatry & Neurology Neurology
DX: I69.351 Hemiplegia and hemiparesis following cerebral infarction affecting right dominant side (principal); I69.320 Aphasia following cerebral infarction; D64.9 Anemia, unspecified; E11.65 Type 2 diabetes mellitus with hyperglycemia; E87.6 Hypokalemia; E80.6 Other disorders of bilirubin metabolism; I50.9 Heart failure, unspecified; I27.20 Pulmonary hypertension, unspecified; I11.0 Hypertensive heart disease with heart failure; I48.91 Unspecified atrial fibrillation; R77.8 Other specified abnormalities of plasma proteins; Z79.01 Long term (current) use of anticoagulants; Z87.891 Personal history of nicotine dependence; Z79.4 Long term (current) use of insulin
CPT/HCPCS: 36415; 80048; 85025; 92507; 92523; 97110; 97112; 97116; 97129; 97130; 97161; 97166; 97530; 97535; 97542; A9270; J1815

== ENCOUNTER 2020-01-19 15:30 | Outpatient (RCR) | payer MEDICARE, OTHER, SELFPAY ==
--- NOTE | 2020-01-19 14:23 | STOPEVAL ---
SPEECH THERAPY INITIAL EVALUATION/DISCHARGE: Thank you for referring Jose A Rodarte to [facility].? Upon completion of the speech evaluation (i.e. cognitive-linguistic), pt was found to be functioning within normal limits. No further ST is warranted. I agree with and certify that the following plan of care is medically necessary. Referring Physician Date Attending Provider: Andres Craven MD *ST Outpatient Evaluation Start: 01/19/20 13:43 Freq: Status: Active Protocol: Document 01/19/20 13:44 BECHERERT (Rec: 01/19/20 14:23 BECHERERT [id number]) Therapy Assessment Status Assessment Status Assessment Status Evaluation Outpatient Past Medical History Past Medical History Source of Past Medical History Patient Neurological History Hx Cerebrovascular Accident (CVA) Yes: 12/05/19 Cardiovascular History Hx Atrial Fibrillation Yes: recent ablation Hx Hypertension Yes Respiratory History Hx Respiratory Disorders No Significant History Gastrointestinal History Hx Gastrointestinal Disorders No Significant History Genitourinary History Hx Kidney Stones Yes Musculoskeletal History Hx Musculoskeletal Disorders No Significant History Hematological History Hx Hematological Disorders No Significant History Endocrine History Hx Diabetes Yes: type 2 HEENT History Hx Cataracts Yes Integumentary History Hx Skin Disorders No Significant History Reproductive History Hx Reproductive Disorders No Significant History Psychosocial History Hx Psychiatric Disorders No Significant History Pain History History of Any Previous or Ongoing No Significant History Instance of Pain Anesthesia History Hx Anesthesia Reactions No Significant History Evaluation Information Problem Diagnosis CVA Onset 12-05-19 Additional Evaluation Detail Lives with ; prior to the CVA pt was independent; 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 I like to watch T.V. and play with the dog . No kids but raised his nephew (lives in [place] currently ) Subjective Information Pleasant and cooperative Query Text:As Reported By Patient/ Family Previous Treatments Previous Treatments For This Problem Recently discharged from [facility] on 12-19-19 Prior Level of Function Act
--- NOTE | 2020-01-19 15:03 | OTOPEVAL ---
OCCUPATIONAL THERAPY EVALUATION AND D/C NOTE 01/19/2020 OT evaluation shows no functional deficits at this time. Jose A has intact ROM, strength, and functional coordination bilaterally. No skilled OT indicated. Thank you for referring Jose A Rodarte to [facility] Please review, sign, date and return this plan of care ARACELI. I agree with and certify that the following plan of care is medically necessary. Referring Physician Date Admitting Provider: Attending Provider: Andres Craven MD Referring Provider: *OT Outpatient Evaluation Start: 01/19/20 14:32 Freq: Status: Active Protocol: Document 01/19/20 14:32 LENNY (Rec: 01/19/20 15:03 LENNY [id number]) Outpatient Past Medical History Past Medical History Source of Past Medical History Patient Neurological History Hx Cerebrovascular Accident (CVA) Yes: 12/05/19 Cardiovascular History Hx Atrial Fibrillation Yes: recent ablation Hx Hypertension Yes Respiratory History Hx Respiratory Disorders No Significant History Gastrointestinal History Hx Gastrointestinal Disorders No Significant History Genitourinary History Hx Kidney Stones Yes Musculoskeletal History Hx Musculoskeletal Disorders No Significant History Hematological History Hx Hematological Disorders No Significant History Endocrine History Hx Diabetes Yes: type 2 HEENT History Hx Cataracts Yes Integumentary History Hx Skin Disorders No Significant History Reproductive History Hx Reproductive Disorders No Significant History Psychosocial History Hx Psychiatric Disorders No Significant History Pain History History of Any Previous or Ongoing No Significant History Instance of Pain Anesthesia History Hx Anesthesia Reactions No Significant History Evaluation Information Problem Diagnosis CVA Onset 12-05-19 Subjective Information Patient is s/p acute care and Query Text:As Reported By Patient/ inpatient rehab. OT/PT/ST Family services. No home health. has been home x1 month. Prior Level of Function Activity Level (Last 3 Months) Occupation Retired Hand Dominance Right Activity of Daily Living Ability Independent Indoor/Home Mobility Independent Community Mobility Independent Stairs Ability Independent Cooking No Cleaning No Laundry No Shopping No Driving Yes Home Setting Home Type House Environmental Barriers Railing, Ascend Left,Stairs, Greater than 4 Living Situation With Spouse
--- NOTE | 2020-01-19 15:35 | PTOPEVAL ---
PHYSICAL THERAPY EVALUATION AND DISCHARGE NOTE Thank you for referring Jose A Rodarte to [facility].? Jose A is presenting as independent at this time and no further PT services are required. Please review, sign, date and return this plan of care ARACELI. I agree with and certify that the following plan of care is medically necessary. Referring Physician Date Attending Provider: Andres Craven MD Evaluation Neurological History Hx Cerebrovascular Accident (CVA) Yes: 12/05/19 Cardiovascular History Hx Atrial Fibrillation Yes: recent ablation Hx Hypertension Yes Genitourinary History Hx Kidney Stones Yes Endocrine History Hx Diabetes Yes: type 2 HEENT History Hx Cataracts Yes Evaluation Information Problem Diagnosis CVA Subjective Information Jose A experienced a CVA. He Query Text:As Reported By Patient/ discharged from inpatient Family rehab on 12/19/2019 and has been home since. He is now driving. He climbs a flight of stairs to get to his bedroom. States that he is independent with all required tasks at home. Pain Assessment Timing of Pain Assessment Timing of Pain Assessment Assessment Self Report Self Report Pain Level 0 Pain Score Pain Score 0: Self Report Additional Pain Score Comments reports chronic left knee pain that he states impairs his balance and sometimes affects his walking Lower Extremity Range of Motion General Lower Extremity Range of Motion Reason Not Measured WFL/Left,WFL/Right Lower Extremity Muscle Strength Testing General Lower Extremity Strength Gross Lower Extremity Strength grossly 5/5 throughout bilateral LE Muscle Length Testing Muscle Length Testing Left Hamstring Length -40 Query Text:(90 - 90 Position) Right Hamstring Length -40 Query Text:(90 - 90 Position) Balance Assessment Tinetti Balance Assessment 28/28 Interpretation of Scores Low risk for falls (>24) Gross Balance Assessment 53/56 Time Up Go (TUG) Timed Up and Go Test (TUG) (Seconds) 9 Assistive Devices None 5 Time Sit to Stand Time in Seconds 12.8 Gait Assessment 2 Minute Walk Total Distance Walked (feet) 429 2 Minute Walk Gait Speed Score (feet/ 3.57 second) PT Clinical Summary Jose A is a 69 yo male presenting to outpatient physical therapy 1 month after
== END 2020-01-20 07:44 | disposition home or self-care (01) ==
LOC: ANHPT 15:30
PROVIDERS: Visit Provider Psychiatry & Neurology Neurology
DX: I63.9 Cerebral infarction, unspecified (principal)
CPT/HCPCS: 96125; 97162; 97165

== ENCOUNTER 2020-05-26 17:03 | Emergency (ER) | payer MEDICARE, OTHER, SELFPAY ==
[2020-05-26] VITALS (34 sets, daily range): BP systolic 142–188; BP diastolic 78–135; PULSE 88–119; RESP 15–36; TEMP 36.2; O2SAT 92–97
--- NOTE | ~2020-05-26 | CT_ITS ---
EXAMINATION: CT brain wo con DATE: 05/26/2020 17:54 INDICATION: Tinnitus. TECHNIQUE: Computed tomography (CT) of the head was performed without intravenous contrast. The mA wa s adjusted according to patient size. Iterative reconstruction technique was employed. The dose-lengt h product was 681.00 mGy-cm. COMPARISON: Head CT 12/05/2019 FINDINGS: There is an old lacunar infarct in the yoanna. There are old lacunar infarcts in the bilatera l basal ganglia and thalami. There are scattered areas of low attenuation in the cerebral white matte r, likely chronic small vessel ischemic disease. 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 There is no intracranial hemorrhage , acute infarction, or abnormal intracranial mass lesion. The ventricles are normal in size. The orbi ts are normal. The paranasal sinuses are clear. The mastoid air cells are normal. IMPRESSION: 1. Multiple old infarcts in the brain. Reviewed, dictated and finalized at location A.
--- NOTE | ~2020-05-26 | XR_ITS ---
EXAMINATION: XR chest 1V portable DATE: 05/26/2020 17:38 INDICATION: Atrial fibrillation. TECHNIQUE: A single frontal view of the chest was obtained. COMPARISON: Chest single view 12/06/2019, chest CT 10/28/2018 FINDINGS: The patient is rotated to his left. There is chronic volume loss of left hemithorax. There is chronic pleural thickening on the left. There are chronic airspace opacities in left mid and lower lung zones, consistent with atelectasis. No significant pleural effusion. No pneumothorax. The heart size is normal. IMPRESSION: 1. Chronic left-sided pleural thickening with chronic atelectasis in left mid and lower lung zones. Reviewed, dictated and finalized at location A. IMPRESSION: 1. Chronic left-sided pleural thickening with chronic atelectasis in left mid a nd lower lung zones.
--- NOTE | 2020-05-26 17:20 | ECG_ITS ---
Measurements Intervals [place] Rate: 96 P: KS: 0 QRS: -15 QRSD: 108 T: 7 QT: 364 QTc: 461 Interpretive Statements ATRIAL FIBRILLATION INTRAVENTRICULAR CONDUCTION DELAY VOLTAGE CRITERIA FOR LVH BORDERLINE R WAVE PROGRESSION, ANTERIOR LEADS BORDERLINE ST-T WAVE ABNORMALITY- INF/LAT LEADS ABNORMAL ECG Electronically Signed On 05-27-2020 7:05:42 CDT by Jorge Mazariegos D.O.
[2020-05-26 17:39] LABS: Basophils Absolute Auto 0.1 K/mm3 (0.0-0.1); Basophils Percent Auto 1.1 % (0.2-1.2); Eosinophils Absolute Auto 0.2 K/mm3 (0-0.3); Eosinophils Percent Auto 2.6 % (0-4.4); Hematocrit 46.9 % (42.0-52.0); Hemoglobin 15.9 g/dL (14.0-18.0); Immature Granulocyte Absolute 0.03 K/mm3 (0.00-0.031); Immature Granulocyte Percent A 0.5 % (0-0.5); Lymphocytes Absolute Auto 1.13 K/mm3 (0.9-3.2); Lymphocytes Percent Auto 17.5 % (18.3-44.2); Mean Corpuscular HGB Conc 33.9 g/dl (32-36); Mean Corpuscular Hemoglobin 29.9 pg (26-34); Mean Corpuscular Volume 88.2 fl (80-100); Mean Platelet Volume 11.2 fl (7.4-10.4); Monocytes Absolute Auto 0.6 K/mm3 (0.1-0.6); Monocytes Percent Auto 8.8 % (2.6-8.5); Neutrophils Absolute Auto 4.5 K/mm3 (1.3-6.7); Neutrophils Percent Auto 69.5 % (45.5-73.1); Platelet Count Result 180 k/mm3 (150-375); Red Blood Count 5.32 M/mm3 (4.6-6.20); Red Cell Distribution Width 15.2 % (11.5-14.5); White Blood Count 6.5 K/mm3 (4.5-10.0)
--- NOTE | 2020-05-26 17:43 | ED.GENADULT ---
HPI - General Adult General Chief complaint: Arrhythmia/Palpitations Stated complaint: A-Fib Issues Time Seen by Provider: 05/26/20 17:11 Source: patient, family and old records reviewed Mode of arrival: ambulatory Limitations: no limitations History of Present Illness HPI narrative: Patient is a 69-year-old male who presents to emergency department for evaluation of atrial fibrillation patient went to his primary care doctor's office for follow-up appointment was found to be in atrial fibrillation. Patient was referred to emergency department for evaluation. Patient's crap game box person is Dr. Ardon. Patient notes history of atrial fibrillation. Patient has been compliant with his medications. Patient was following up with primary care for ringing that he had had in his ear which is resolved at this time and occurred last week. Patient denies any illness pain or other complaints presents in no distress Related Data Home Medications Medication Instructions Recorded Confirmed Eliquis 5 mg PO BID 12/05/19 12/10/19 benazepril 40 mg PO DAILY 12/05/19 12/10/19 carvedilol 25 mg PO BID 12/05/19 12/10/19 furosemide 40 mg PO DAILY 12/05/19 12/10/19 Allergies Allergy/AdvReac Type Severity Reaction Status Date / Time oxycodone Allergy Mild Itching Verified 05/26/20 17:48 tramadol Allergy Mild Itching Verified 05/26/20 17:48 Review of Systems Review of Systems: All systems reviewed & are unremarkable except as noted in HPI and below PMFSH Past Medical History Medical History Atrial fibrillation Cataracts, bilateral Hypertension Nephrolithiasis Surgical History Surgical History H/O cardiac radiofrequency ablation Family History Family History Mother Diabetes mellitus Social History Social History Smoking status: Former smoker Tobacco type: cigarettes Additional smoking assessment comments: smoked in high school-years ago Alcohol intake: former Substance use: never Gender identity (if verbalized by the patient): Male Spiritual care concerns: No Exam Narrative: Exam Narrative: GENERAL: Well-appearing, obese, and in no acute distress. HEAD: Normocephalic, atraumatic. EYES: PERRLA and EOMI. ENT: Nares clear, no rhinorrhea or epistaxis. Mucous membranes moist. NECK: Supple. No adenopathy or masses. CHEST: Clear to auscultation. No respiratory distress. No wheezes rales or rhonchi HEART: Irregularly irregular rate and rhythm. No murmur heard. Normal peripheral pulses. ABDOMEN: Soft, nontender, nondistended EXTREMITIES: Normal range of motion. 1+ edema in the lower extremities SKIN: Warm, dry, no rash. NEURO: No focal deficits. Alert and oriented x3. Cranial nerves II through XII grossly intact. Normal speech and gait PSYCH: Normal mood and affect. Course Course Emergency Course: Discussed case with cardiology Dr. Rai who recommends the patient can be sent home with plan follow-up. Patient was given hydralazine as recommended by cardiology prior to discharge. Patient is asymptomatic in the room in no distress aware of case findings treatment plan and diagnosis and feels comfortable with the plan. ABCs and vital signs intact and stable Consultations Consultation #1: Discussed case with cardiology Dr. Rai in entirety who recommends the patient can be discharged safely with follow-up as planned with cardiology with no medication changes would like the patient to be given hydralazine in the ER for improved blood pressure management Date: 05/26/20 Time: 20:43 Vital Signs Vital signs: Vital Signs Pulse Rate 107 H 05/26/20 17:10 Respiratory Rate 28 H 05/26/20 17:10 Pulse Oximetry 93 05/26/20 17:10 Temperature 97.2 F L 05/26/20 17:11 Pulse Rate 97 05/26/20 20:0
[2020-05-26 17:48] LABS: INR 1.1; Prothrombin Time 14.4 Seconds (11.1-14.7)
[2020-05-26 17:49] LABS: Partial Thromboplastin Time 25.3 SECONDS (22.3-36.8)
[2020-05-26 18:02] LABS: Alanine Aminotransferase 25 U/L (4-50); Albumin Level 4.2 g/dL (3.5-5.1); Alkaline Phosphatase 74 U/L (38-126); Anion Gap 8 mmol/L (8-16); Aspartate Amino Transferase 23 U/L (17-59); Bilirubin,Total 0.6 mg/dL (0.2-1.3); Blood Urea Nitrogen 25 mg/dL (9-20); Carbon Dioxide 24 mmol/L (22-30); Chloride 112 mmol/L (98-107); Estimated CRCL calculation 53 ml/min; Estimated Glomerular Filt Rate 40; Glucose 109 mg/dL (75-110); Potassium 4.4 mmol/L (3.4-5.0); Sodium 144 mmol/L (137-145)
[2020-05-26 18:14] LABS: NT Pro B Type Natriuretic Pept 1110 PG/ML (5-100); Troponin I < 0.012 ng/mL (0.000-0.034)
[2020-05-26] MEDS: carvediloL 25 MG TABLET PO (18:43)
[2020-05-26] MEDS: SODIUM CHLORIDE 0.9% IV 500 ML 999 ML IV CONT (18:47)
--- NOTE | 2020-05-26 19:00 | PC.NURSE ---
Assumed care of Pt. Report from BONNIE Tesfaye
[2020-05-26] MEDS: hydrALAZINE HCL 20 MG/ML VIAL 10 MG IV PUSH (20:06)
== END 2020-05-26 21:15 | disposition home or self-care (01) ==
PROVIDERS: Emergency Medicine Emergency Medical Services; Emergency Provider Emergency Medicine; PCP Physician Assistant
DX: I48.91 Unspecified atrial fibrillation (principal); I10 Essential (primary) hypertension; H26.9 Unspecified cataract; Z87.442 Personal history of urinary calculi; Z79.01 Long term (current) use of anticoagulants; Z87.891 Personal history of nicotine dependence
CPT/HCPCS: 36415; 70450; 71045; 80053; 83880; 84484; 85025; 85610; 85730; 93005; 96361; 96374; 99284; A9270; J0360; J7040

== ENCOUNTER 2020-05-31 09:28 | Emergency (ER) | payer MEDICARE, OTHER, SELFPAY ==
[2020-05-31] VITALS (11 sets, daily range): BP systolic 150–171; BP diastolic 106–117; PULSE 95–112; RESP 14–26; TEMP 36.6; O2SAT 94–98
--- NOTE | ~2020-05-31 | CT_ITS ---
EXAMINATION: CT brain wo con EXAM DATE: 05/31/2020 10:32 INDICATION: History of stroke in 2019. Tinnitus 5 days earlier. TECHNIQUE: Spiral CT of the head was performed without contrast. Axial, coronal and sagittal images were reviewed. The dose-length product (DLP) for this examination was 681.00 mGy-cm. The exposure w as tailored according to patient size, and iterative reconstruction (ASIR) was used as additional dos e reduction technique. Comparison is made to prior examination from 05/26/2020. FINDINGS: There is no acute intraparenchymal hemorrhage. No evidence of intraparenchymal brain mass lesion. No evidence of acute infarction. Please note that initial head CT has limited sensitivity f or small or acute infarctions. There is punctate old left pontine lacunar infarction. There are bila teral basal ganglia, thalamic and right caudate head old lacunar infarctions. Punctate old left cereb ellar infarction. There is mild to moderate periventricular and subcortical hypodensity, nonspecific but probably related to small vessel ischemic disease. There is mild prominence of the sulci and ve ntricles related to cerebral atrophy. There is intracranial carotid arteriosclerosis. There are no extra-axial collections. There is no mass effect or midline shift. The orbits are unremarkable. S mall right posterior scalp subgaleal lipoma. The visualized sinuses and mastoid air cells are well ae rated. IMPRESSION: 1. No acute intracranial findings. 2. Chronic age related findings. 3. Small old lacunar infarctions. Reviewed, dictated and finalized at location A.
--- NOTE | ~2020-05-31 | XR_ITS ---
EXAMINATION: XR chest 2V EXAM DATE: 05/31/2020 10:20 INDICATION: Chest pain, history of atrial fibrillation and shortness of breath and weakness upon exer tion. TECHNIQUE: Frontal and lateral projections of the chest obtained and reviewed. Comparison is made to prior examination from 05/26/2020, 12/06/2019, 12/05/2019. FINDINGS: Again there is left pleural blunting, has been chronic with some adjacent scarring. The rosina gs are otherwise clear. There are no pleural effusions. The cardiomediastinal silhouette is within normal limits. There is no pneumothorax suspected. There is tortuosity of the aorta. There is aorti c arteriosclerosis. There is no significant interval change. IMPRESSION: Chronic left pleural blunting and adjacent scarring. Reviewed, dictated and finalized at location A.
--- NOTE | 2020-05-31 09:48 | ED.CHESTPAIN ---
HPI - Chest Pain General Chief Complaint: Chest Pain Stated Complaint: earache/ afib Time Seen by Provider: 05/31/20 09:48 Source: patient Mode of arrival: ambulatory Limitations: no limitations History of Present Illness HPI narrative: The patient is a 69 yo male who presents for evaluation of ringing in his left ear, and palpitations. Pt denies chest pain or dyspnea. He was seen last week in the ER for similar with negative work up and discharged to home. Pt denying any shy pain. In fact he seems to be in quite good spirits when chatting with him, and when asked why he came to the ER he stated it was because his ear was ringing. He denies cough or trouble breathing, but his states he often has difficulty breathing, but not currently. Pt has been compliant with his medications and denies starting any new medications. He denies fever or chills. Denies discharge from the ear. Denies facial pain or numbness. Denies neck pain. Related Data Home Medications Medication Instructions Recorded Confirmed Eliquis 5 mg PO BID 12/05/19 12/10/19 benazepril 40 mg PO DAILY 12/05/19 12/10/19 carvedilol 25 mg PO BID 12/05/19 12/10/19 furosemide 40 mg PO DAILY 12/05/19 12/10/19 Allergies Allergy/AdvReac Type Severity Reaction Status Date / Time oxycodone Allergy Mild Itching Verified 05/26/20 17:48 tramadol Allergy Mild Itching Verified 05/26/20 17:48 Review of Systems Review of Systems: Narrative: CONSTITUTIONAL: Denies fever, chills, or sweats. EYES: Denies visual changes, redness, or discharge. ENT: Denies rhinorrhea, congestion, sore throat, or otalgia. CARDIOVASCULAR: Denies chest pain, reports palpitations and edema RESPIRATORY: Denies current cough or dyspnea. GASTROINTESTINAL: Denies abdominal pain, nausea, vomiting, or diarrhea. GENITOURINARY: Denies dysuria or hematuria. SKIN: Denies rash or itching. MUSCULOSKELETAL: Denies back pain, joint pain, or myalgia. NEUROLOGIC: Denies headache, numbness, or weakness. [facility] Past Medical History Medical History (Updated 05/31/20 @ 11:53 by Rebecca Catalan MD) Acute encephalopathy Acute ischemic stroke Atrial fibrillation Atrial fibrillation with rapid ventricular response Cataracts, bilateral CSF pleocytosis Dehydration DVT prophylaxis Elevated troponin Hyperbilirubinemia Hyperosmolar (nonketotic) coma Hypertension Hypertension Hypertensive emergency Nephrolithiasis Volume overload Surgical History Surgical History H/O cardiac radiofrequency ablation Family History Family History Mother Diabetes mellitus Social History Social History Smoking status: Former smoker Tobacco type: cigarettes Additional smoking assessment comments: smoked in high school-years ago Alcohol intake: former Substance use: never Gender identity (if verbalized by the patient): Male Spiritual care concerns: No Exam Narrative: Exam Narrative: GENERAL: Awake, alert, conversant HEAD: Normocephalic, atraumatic. EYES: PERRLA and EOMI. ENT: Nares clear, no rhinorrhea or epistaxis. Mucous membranes moist. NECK: Supple. CHEST: No respiratory distress, breathing even and non labored HEART: Irregular rate, consistent with a fib ABDOMEN:Non distended, non tender EXTREMITIES: Atrophy bilateral lower extremities. Grossly normal range of motion.Mild lower extremity edema to mid shins. No calf tenderness bilaterally. SKIN: Warm, dry, no rash. NEURO:No focal deficits. Alert and oriented x3 Course Vital Signs Vital signs: Vital Signs Pulse Rate 101 H 05/31/20 09:49 Temperature 36.6 C 05/31/20 09:58 Pulse Rate 96 05/31/20 10:46 Respiratory Rate 24 H 05/31/20 10:46 Blood Pressure 150/115 H 05/31/20 10:46 Pulse Oximetry 94 05/31/20 10:01 MDM - Chest Pain MDM Narrative Medical decision making n
--- NOTE | 2020-05-31 09:49 | ECG_ITS ---
Measurements Intervals [place] Rate: 114 P: [place]: 0 QRS: -22 QRSD: 103 T: 11 QT: 343 QTc: 473 Interpretive Statements ATRIAL FIBRILLATION WITH RAPID VENTRICULAR RESPONSE VOLTAGE CRITERIA FOR LVH BORDERLINE R WAVE PROGRESSION, ANTERIOR LEADS BORDERLINE ST-T WAVE ABNORMALITY- INF/LAT LEADS ABNORMAL ECG Electronically Signed On 05-31-2020 10:00:11 CDT by Jorge Mazariegos D.O.
[2020-05-31 10:00] LABS: Basophils Absolute Auto 0.1 K/mm3 (0.0-0.1); Basophils Percent Auto 0.8 % (0.2-1.2); Eosinophils Absolute Auto 0.2 K/mm3 (0-0.3); Eosinophils Percent Auto 2.5 % (0-4.4); Hematocrit 47.4 % (42.0-52.0); Immature Granulocyte Absolute 0.03 K/mm3 (0.00-0.031); Immature Granulocyte Percent A 0.4 % (0-0.5); Lymphocytes Absolute Auto 0.74 K/mm3 (0.9-3.2); Lymphocytes Percent Auto 10.4 % (18.3-44.2); Mean Corpuscular HGB Conc 33.8 g/dl (32-36); Mean Corpuscular Hemoglobin 29.4 pg (26-34); Mean Platelet Volume 10.9 fl (7.4-10.4); Monocytes Absolute Auto 0.7 K/mm3 (0.1-0.6); Monocytes Percent Auto 9.3 % (2.6-8.5); Neutrophils Absolute Auto 5.5 K/mm3 (1.3-6.7); Neutrophils Percent Auto 76.6 % (45.5-73.1); Platelet Count Result 160 k/mm3 (150-375); Red Blood Count 5.45 M/mm3 (4.6-6.20); White Blood Count 7.1 K/mm3 (4.5-10.0)
[2020-05-31 10:09] LABS: INR 1.1; Prothrombin Time 14.8 Seconds (11.1-14.7)
[2020-05-31 10:12] LABS: Anion Gap 7 mmol/L (8-16); Blood Urea Nitrogen 18 mg/dL (9-20); Calcium 8.6 mg/dL (8.4-10.2); Carbon Dioxide 25 mmol/L (22-30); Chloride 109 mmol/L (98-107); Estimated CRCL calculation 47 ml/min; Estimated Glomerular Filt Rate 55; Glucose 142 mg/dL (75-110); Potassium 4.4 mmol/L (3.4-5.0); Sodium 141 mmol/L (137-145)
[2020-05-31] MEDS: ASPIRIN 81 MG CHEWABLE TABLET 324 MG PO (10:18)
--- NOTE | 2020-05-31 10:18 | PC.NURSE ---
Pt back from radiology at this time.
[2020-05-31 10:24] LABS: Troponin I < 0.012 ng/mL (0.000-0.034)
[2020-05-31] MEDS: SODIUM CHLORIDE 0.9% IV 1,000 ML 999 ML IV CONT (11:01)
--- NOTE | 2020-05-31 11:40 | PC.NURSE ---
pT REPORT TO BONNIE WRIGHT HE HAS ASSUMED PT CARE.
[2020-05-31 12:13] LABS: NT Pro B Type Natriuretic Pept 1210 PG/ML (5-100)
[2020-05-31 12:17] LABS: Troponin I < 0.012 ng/mL (0.000-0.034)
== END 2020-05-31 12:16 | disposition home or self-care (01) ==
PROVIDERS: Emergency Provider Emergency Medicine; PCP Physician Assistant
DX: I48.0 Paroxysmal atrial fibrillation (principal); H93.12 Tinnitus, left ear; E86.0 Dehydration; I10 Essential (primary) hypertension; H26.9 Unspecified cataract; Z79.01 Long term (current) use of anticoagulants; Z87.891 Personal history of nicotine dependence; Z86.73 Personal history of transient ischemic attack (TIA), and cerebral infarction without residual deficits; Z87.442 Personal history of urinary calculi; R94.31 Abnormal electrocardiogram [ECG] [EKG]
CPT/HCPCS: 36415; 70450; 71046; 80048; 83880; 84484; 85025; 85610; 85730; 93005; 96360; 99284; A9270; J7030

== ENCOUNTER → 2020-06-28 01:59 | Outpatient (CLI) | payer MEDICARE, OTHER, SELFPAY ==
[2020-06-28 19:23] LABS: SARS-CoV-2 RNA PCR Negative
== END ==
PROVIDERS: PCP Physician Assistant; Visit Provider Specialist
DX: Z01.812 Encounter for preprocedural laboratory examination (principal); Z20.822 Contact with and (suspected) exposure to COVID-19
CPT/HCPCS: C9803; U0003; U0005

== ENCOUNTER 2020-07-01 02:11 | Day surgery (SDC) | payer MEDICARE, OTHER, SELFPAY ==
[2020-07-01] VITALS (8 sets, daily range): BP systolic 136–156; BP diastolic 89–116; PULSE 52–73; RESP 12–20; TEMP 36.3; O2SAT 95–99; BMI 36.6
--- NOTE | 2020-07-01 08:30 | ECG_ITS ---
Measurements Intervals [place] Rate: 82 P: [place]: 0 QRS: -20 QRSD: 103 T: -29 QT: 410 QTc: 481 Interpretive Statements ATRIAL FIBRILLATION DELAYED PRECORDIAL R/S TRANSITION VOLTAGE CRITERIA FOR LVH NONSPECIFIC ST & T-WAVE ABNORMALITY- LATERAL LEADS ABNORMAL ECG Electronically Signed On 07-01-2020 8:44:04 CDT by Jorge Mazariegos D.O.
[2020-07-01 09:14] LABS: Anion Gap 6 mmol/L (8-16); Blood Urea Nitrogen 20 mg/dL (9-20); Calcium 9.2 mg/dL (8.4-10.2); Carbon Dioxide 28 mmol/L (22-30); Chloride 110 mmol/L (98-107); Estimated Glomerular Filt Rate 40; Glucose 173 mg/dL (75-110); Magnesium 2.3 mg/dL (1.6-2.3); Potassium 3.9 mmol/L (3.4-5.0); Sodium 144 mmol/L (137-145)
--- NOTE | 2020-07-01 09:43 | WPDMODSED ---
Moderate Sedation Note-Pt Data Patient Data Allergies Allergy/AdvReac Type Severity Reaction Status Date / Time oxycodone Allergy Mild Itching Verified 05/26/20 17:48 tramadol Allergy Mild Itching Verified 05/26/20 17:48 Home Medications Medication Instructions Recorded Confirmed Type Eliquis 5 mg PO BID 12/05/19 07/01/20 History benazepril 40 mg PO DAILY 12/05/19 07/01/20 History carvedilol 25 mg PO BID 12/05/19 07/01/20 History furosemide 40 mg PO DAILY 12/05/19 07/01/20 History blood sugar diagnostic [OneTouch #1 pkg 12/18/19 Rx Verio test strips] glipizide 2.5 mg PO DAILY #30 tablet 12/18/19 07/01/20 Rx lancets [OneTouch Delica Plus #1 pkg 12/18/19 Rx Lancet] levothyroxine 50 mcg PO DAILY 07/01/20 07/01/20 History potassium 499 mg PO DAILY 07/01/20 07/01/20 History Current Medications: Active Medications Sodium Chloride (Normal Saline Iv) 1,000 mls @ 30 mls/hr IV CONT .Q24H SUYAPA Sedation/Anesthesia: No previous sedation/anesthesia problems (including family history). [facility] Past Medical History Medical History (Updated 06/01/20 @ 00:00 by [facility] Dayolanda) Acute encephalopathy Acute ischemic stroke Atrial fibrillation Atrial fibrillation with rapid ventricular response Cataracts, bilateral CSF pleocytosis Dehydration DVT prophylaxis Elevated troponin Hyperbilirubinemia Hyperosmolar (nonketotic) coma Hypertension Hypertension Hypertensive emergency Nephrolithiasis Volume overload Surgical History Surgical History H/O cardiac radiofrequency ablation Family History Family History Mother Diabetes mellitus Social History Social History Smoking status: Former smoker Tobacco type: cigarettes Additional smoking assessment comments: smoked in high school-years ago Alcohol intake: former Substance use: never Gender identity (if verbalized by the patient): Male Spiritual care concerns: No Mod Sed Physical Exam Physical Exam Pre Procedural Exam: Normal: Neck, Throat, Airway, Lungs, Heart Rate, Neuro Exam and Extremities and Variation: Appearance (Overweight white male no apparent distress), Heart Size (PMI enlarged) and Heart Rhythm (Irregularly irregular) Hours since solid foods: 12 Hours since liquid intake: 12 Internal Medicine - PN: Obj Da Vital Signs Vital Signs: Vital Signs - 24 hr 07/01/20 09:10 Temperature 36.3 C L Pulse Rate 71 Respiratory Rate 12 Blood Pressure 154/105 H Pulse Oximetry 96 Meds/Results Medications: Active Medications Generic Name Dose Route Start Last Admin Trade Name Freq PRN Reason Stop Dose Admin Sodium Chloride 1,000 mls @ 30 mls/hr 07/01/20 08:30 Normal Saline Iv IV CONT .Q24H SUYAPA Labs CBC & Chem 7: 07/01/20 08:32 Labs: Laboratory Results - last 24 hr 07/01/20 08:32 Sodium 144 Potassium 3.9 Chloride 110 H Carbon Dioxide 28 Anion Gap 6 L BUN 20 Creatinine 1.70 H Estim Creat Clear Calc Not Reportable Estimated GFR 40 L Glucose 173 H Calcium 9.2 Magnesium 2.3 ASA Classification/Sedation ASA Classification/Sedation ASA Class: II Emergent: No Risks: Risks, benefits and alternatives explained and patient/family accepted plan for sedation. Patient re-evaluated immediately prior to sedation.
--- NOTE | 2020-07-01 09:56 | ECG_ITS ---
Measurements Intervals [place] Rate: 58 P: 42 MT: 201 QRS: -18 QRSD: 109 T: -31 QT: 463 QTc: 457 Interpretive Statements SINUS BRADYCARDIA DELAYED PRECORDIAL R/S TRANSITION LEFT VENTRICULAR HYPERTROPHY AND ST-T CHANGE ST-T WAVE ABNORMALITY IN ANTEROLAT/INF LEADS- CONSIDER ISCHEMIA ABNORMAL ECG Electronically Signed On 07-01-2020 10:02:37 CDT by Jorge Mazariegos D.O.
--- NOTE | 2020-07-01 09:56 | WPDCARDPROC ---
Cardiac Cath Procedure Note Date of procedure:: 07/01/20 Performing physician:: Miko Ledesma MD Indication:: Recurrent atrial fibrillation Brief clinical history:: This is a 69-year-old patient with a history of a nonischemic cardiomyopathy and atrial fibrillation. He was found to have symptomatic recurrence of this in the office recently. He has been started on amiodarone 400 mg daily about 1 month ago and is now admitted this morning for an attempt at restoring sinus rhythm electrically. He is anticoagulated with apixaban. Procedure Procedure performed:: DC cardioversion Sedation/Medication given:: Propofol and aliquots total dosage of 60 mg given Estimated blood loss:: No blood loss Procedure note:: Patient was brought to the cardiac catheterization lab holding area in a postabsorptive state he was placed in the supine position with defibrillator patches in the AP position. He was then sedated with propofol as mentioned above. This provided excellent procedural sedation. He was DC cardioverted with 200 joules x1 shock in a synchronized fashion restoring sinus rhythm. Findings:: As above Conclusion:: 1. Successful uncomplicated DC cardioversion of recurrent atrial fibrillation to sinus rhythm using 200 joules x1 shock following outpatient loading with amiodarone. Miko Ledesma MD [facility]
== END 2020-07-01 11:21 | disposition home or self-care (01) ==
PROVIDERS: PCP Physician Assistant; Visit Provider Specialist
PROC: 5A2204Z Restoration of Cardiac Rhythm, Single (ICD-10-PCS; principal; 2020-07-01 10:00)
DX: I48.91 Unspecified atrial fibrillation (principal); I42.9 Cardiomyopathy, unspecified; R53.83 Other fatigue; R06.02 Shortness of breath; Z79.01 Long term (current) use of anticoagulants; R00.1 Bradycardia, unspecified; Z86.73 Personal history of transient ischemic attack (TIA), and cerebral infarction without residual deficits; Z86.718 Personal history of other venous thrombosis and embolism; I10 Essential (primary) hypertension; Z87.891 Personal history of nicotine dependence
CPT/HCPCS: 36415; 80048; 83735; 92960; 93005; J2704; J7030

== ENCOUNTER 2021-02-01 16:14 | Inpatient (IN) | payer MEDICARE, OTHER, SELFPAY ==
--- NOTE | ~2021-02-01 | CT_ITS ---
EXAMINATION: CT brain wo con EXAM DATE: 02/01/2021 18:45 INDICATION: Dizziness. TECHNIQUE: Spiral CT of the head was performed without contrast. Axial, coronal and sagittal images were reviewed. The dose-length product (DLP) for this examination was 605.33 mGy-cm. The exposure w as tailored according to patient size, and iterative reconstruction (ASIR) was used as additional dos e reduction technique. Comparison is made to prior examination from 05/31/2020. FINDINGS: There is no acute intraparenchymal hemorrhage. No evidence of intraparenchymal brain mass lesion. No evidence of acute infarction. Please note that initial head CT has limited sensitivity f or small or acute infarctions. Old bilateral basal ganglia and thalamic lacunar infarctions. There is mild to moderate periventricular and subcortical hypodensity, nonspecific but probably related to small vessel ischemic disease. There is prominence of the sulci and ventricles related to cerebral atrophy. There is intracranial carotid arteriosclerosis. There are no extra-axial collections. Th ere is no mass effect or midline shift. The orbits are unremarkable. Soft tissue is unremarkable. The visualized sinuses and mastoid air cells are well aerated. There is no significant interval [place]. IMPRESSION: 1. No acute intracranial findings. 2. Chronic age related findings. 3. Old lacunar infarctions. Reviewed, dictated and finalized at location A. ROOM SUPERVISOR
--- NOTE | ~2021-02-01 | XR_ITS ---
EXAMINATION: XR chest 2V DATE: 02/01/2021 17:18 INDICATION: Dizziness and fatigue, nausea, history of hypertension TECHNIQUE: AP and lateral views of the chest are obtained. COMPARISON: 05/31/2020 FINDINGS: The lungs are free of acute opacities. Again noted is chronic pleural thickening on the lef t with rounded atelectasis in the left lower lobe. There is no pleural effusion or pneumothorax. The cardiomediastinal silhouette is normal. There is moderate thoracic spondylosis. IMPRESSION: 1. No acute cardiopulmonary abnormality. Reviewed, dictated and finalized at location A. IE BREAKER
[2021-02-01 16:40] VITALS: BP 139/101; PULSE 74; RESP 18; TEMP 35.7; O2SAT 97
--- NOTE | 2021-02-01 16:44 | ECG_ITS ---
Measurements Intervals [place] Rate: 104 P: [place]: 0 QRS: -28 QRSD: 104 T: -4 QT: 383 QTc: 504 Interpretive Statements ATRIAL FLUTTER/TACHYCARDIA WITH RAPID VENTRICULAR RESPONS LEFT VENTRICULAR HYPERTROPHY AND ST-T CHANGE CANNOT RULE OUT SEPTAL INFARCT, AGE INDETERMINATE BORDERLINE ST-T WAVE ABNORMALITY- LATERAL LEADS ABNORMAL ECG Electronically Signed On 02-01-2021 20:14:17 ELECTROLYTIC DE SCALER by Jorge Mazariegos D.O.
[2021-02-01 17:11] LABS: Basophils Absolute Auto 0.1 K/mm3 (0.0-0.1); Basophils Percent Auto 0.9 % (0.2-1.2); Eosinophils Absolute Auto 0.1 K/mm3 (0-0.3); Eosinophils Percent Auto 1.6 % (0-4.4); Hematocrit 45.2 % (42.0-52.0); Hemoglobin 16.3 g/dL (14.0-18.0); Immature Granulocyte Absolute 0.04 K/mm3 (0.00-0.031); Immature Granulocyte Percent A 0.5 % (0-0.5); Lymphocytes Absolute Auto 1.15 K/mm3 (0.9-3.2); Lymphocytes Percent Auto 15.3 % (18.3-44.2); Mean Corpuscular HGB Conc 36.1 g/dl (32-36); Mean Corpuscular Volume 88.6 fl (80-100); Mean Platelet Volume 10.9 fl (7.4-10.4); Monocytes Absolute Auto 0.7 K/mm3 (0.1-0.6); Monocytes Percent Auto 9.5 % (2.6-8.5); Neutrophils Absolute Auto 5.4 K/mm3 (1.3-6.7); Neutrophils Percent Auto 72.2 % (45.5-73.1); Platelet Count Result 210 k/mm3 (150-375); Red Cell Distribution Width 13.2 % (11.5-14.5); White Blood Count 7.5 K/mm3 (4.5-10.0)
[2021-02-01 17:15] LABS: Alanine Aminotransferase 30 U/L (4-50); Albumin Level 4.2 g/dL (3.5-5.1); Alkaline Phosphatase 103 U/L (38-126); Anion Gap 14 mmol/L (8-16); Aspartate Amino Transferase 31 U/L (17-59); Bilirubin,Total 1.3 mg/dL (0.2-1.3); Blood Urea Nitrogen 21 mg/dL (9-20); Calcium 9.3 mg/dL (8.4-10.2); Carbon Dioxide 23 mmol/L (22-30); Chloride 103 mmol/L (98-107); Estimated CRCL calculation 51 ml/min; Estimated Glomerular Filt Rate 46; Glucose 213 mg/dL (65-110); Lipase 53 U/L (23-300); Potassium 3.3 mmol/L (3.4-5.0); Sodium 140 mmol/L (137-145)
[2021-02-01 17:31] LABS: INR 1.2; Prothrombin Time 14.6 Seconds (11.1-14.7); Troponin I 0.051 ng/mL (0.000-0.034)
[2021-02-01 17:32] LABS: Partial Thromboplastin Time 27.8 SECONDS (22.3-36.8)
[2021-02-01 17:48] VITALS: BP 131/76; PULSE 103; RESP 12; TEMP 35.8; O2SAT 96
--- NOTE | 2021-02-01 17:56 | ECG_ITS ---
Measurements Intervals [place] Rate: 95 P: [place]: 0 QRS: -9 QRSD: 114 T: 40 QT: 370 QTc: 466 Interpretive Statements ATRIAL FLUTTER/TACHYCARDIA INTRAVENTRICULAR CONDUCTION DELAY LEFT VENTRICULAR HYPERTROPHY AND ST-T CHANGE CANNOT RULE OUT SEPTAL INFARCT, AGE INDETERMINATE BORDERLINE ST-T WAVE ABNORMALITY- LATERAL LEADS ABNORMAL ECG Electronically Signed On 02-01-2021 20:15:20 [employer]OR [employer]ET[employer]ARD by Jorge Mazariegos D.O.
[2021-02-01] MEDS: ASPIRIN 81 MG CHEWABLE TABLET 324 MG PO (18:09)
--- NOTE | 2021-02-01 18:09 | ED.DIZZY ---
HPI - Dizziness General Chief Complaint: Dizziness Stated Complaint: light headed Time Seen by Provider: 02/01/21 17:48 Source: RN notes reviewed History of Present Illness HPI Narrative: Patient presents emergency department from home for dizziness. Patient states he went to sleep today feeling fine and took a 4-hour nap he states he woke up he felt lightheaded and clammy he states that with that he felt some heaviness in his bilateral arms that is now improved he states he no longer feels dizzy but states he just feels generally fatigued he states that he recently had ablation surgery at [facility] in July and is still on Xarelto and followed by Dr. Ledesma but has been out of atrial fibrillation since July denies any fevers or chills chest pain shortness of breath abdominal pain nausea vomiting or any other symptoms patient states he is on Xarelto which she has been taking Related Data Home Medications Medication Instructions Recorded Confirmed Eliquis 5 mg PO BID 12/05/19 07/01/20 benazepril 40 mg PO DAILY 12/05/19 07/01/20 carvedilol 25 mg PO BID 12/05/19 07/01/20 furosemide 40 mg PO DAILY 12/05/19 07/01/20 levothyroxine 50 mcg PO DAILY 07/01/20 07/01/20 potassium 499 mg PO DAILY 07/01/20 07/01/20 Allergies Allergy/AdvReac Type Severity Reaction Status Date / Time oxycodone Allergy Mild Itching Verified 05/26/20 17:48 tramadol Allergy Mild Itching Verified 05/26/20 17:48 Review of Systems Review of Systems: Gen.: Denies fevers or chills Eyes: Denies eye pain or visual change ENT: Denies congestion Respiratory: Denies shortness of breath or cough CV: Denies chest pain or palpitations GI: Denies abdominal pain nausea, emesis or diarrhea Musculoskeletal: Denies back pain or muscle pain Neuro: Reports dizziness Skin: Denies rash Except as documented, all other systems reviewed and negative PMFSH Past Medical History Medical History Acute encephalopathy Acute ischemic stroke Atrial fibrillation Atrial fibrillation with rapid ventricular response Cataracts, bilateral CSF pleocytosis Dehydration DVT prophylaxis Elevated troponin Hyperbilirubinemia Hyperosmolar (nonketotic) coma Hypertension Hypertension Hypertensive emergency Nephrolithiasis Volume overload Surgical History Surgical History H/O cardiac radiofrequency ablation Family History Family History Mother Diabetes mellitus Social History Social History Smoking status: Former smoker Tobacco type: cigarettes Additional smoking assessment comments: smoked in high school-years ago Alcohol intake: former Substance use: never Gender identity (if verbalized by the patient): Male Spiritual care concerns: No Exam Narrative: APPEARANCE: No acute distress, nontoxic, resting in bed EYES: EOMI HEENT: Normocephalic, atraumatic, OMM RESPIRATORY: No respiratory distress Clear to auscultation bilaterally with no rhonchi wheezing or rales. CARDIOVASCULAR: Irregular irregular without murmurs rubs or gallops. ABDOMINAL: Soft, nontender, nondistended, no rebound or guarding MUSCULOSKELETAl: Moves all extremities. No clubbing, cyanosis or edema. NEURO: Awake and alert x 4. Following commands, speech normal, no focal deficits SKIN:: Warm, dry. No rashes lesions or abrasions PSYCHIATRIC: Normal affect/mood, Course Course Emergency Course: Discussed with Dr. [place] presentation work-up agrees with plan for consult request patient be n.p.o. after midnight for possible cardioversion Discussed Dr. Cordon presentation work-up agrees with admission at this time Discussed with patient and family results of workup and diagnosis. Discussed need for admission. Patient and family understand and agree to current treatment plan Vital Si
[2021-02-01 19:19] LABS: Add Urine Microscopic? YES; Appearance Urine Clear (Clear); Bilirubin Urine Negative (Negative); Blood Urine Negative (Negative); Color Urine Yellow (Yellow); Glucose Urine UA 2+ mg/dL (Negative); Ketones Urine Negative (Negative); Leukocyte Esterase Ur Negative LEU/UL (Negative); Mucus Urine Rare /lpf; Nitrate Urine Negative (Negative); Protein Urine 1+ mg/dL (Negative); RBC Urine 0-2 /hpf (0-2); Specific Grav Ur 1.015 (1.001-1.035); WBC Urine 0-3 /hpf
--- NOTE | 2021-02-01 19:42 | PM.IMHP ---
H&P: HPI History of Present Illness Date/Time: 02/01/21 19:42 Chief Complaint: Lightheadedness Narrative: This is a 70-year-old male with past medical history significant for atrial fibrillation, patient just recently underwent cardioversion in June of 2020 he is anticoagulated, type 2 diabetes mellitus, hypothyroidism, dyslipidemia, hypertension, chronic kidney disease. Patient presented to the emergency room due to episode of feeling lightheaded near syncope cold and clammy. Patient had been doing his usual prior to this episode he denies any nausea, any vomiting, any diarrhea, any abdominal pain, any chest pain, any cough or sputum production ,fevers ,chills or rigors, no PND, no orthopnea ,no leg swelling. Preliminary workup in the emergency room was significant for EKG with atrial fibrillation atrial flutter. A chest x-ray did not show any acute cardiopulmonary abnormality, patient was also found to have elevated troponins. Decision has been made to admit the patient for further evaluation, management and treatment. Review of Systems Review of Systems: Lightheadedness, dizziness. Constitutional: Constitutional: Denies chills, Denies fatigue, Denies fever(s), Denies lethargy, Denies malaise, Denies night sweats, Denies weakness and Denies weight loss Eyes: Eyes: Denies change in vision ENT: Denies dysphagia, Denies vertigo, Denies dizziness, Denies nasal congestion, Denies nasal discharge, Denies nasal obstruction and Denies odynophagia Cardiovascular: Cardiovascular: Denies chest pain, Denies pedal edema, Reports irregular heart rhythm, Denies claudication, Denies leg edema, Reports lightheadedness, Denies radiating jaw, neck or arm pain, Denies palpitations, Denies dyspnea on exertion and Denies orthopnea Respiratory: Respiratory: Denies change in phlegm color, Denies cough and Denies dyspnea Gastrointestinal: Gastrointestinal: Denies abdominal pain, Denies diarrhea, Denies nausea and Denies vomiting Genitourinary: Genitourinary: Reports no additional male genitourinary complaints and Reports as per HPI Musculoskeletal: Musculoskeletal: Denies arthralgias and Denies joint swelling Integumentary/Breasts: Skin/Breast: Denies rash Neurologic: Denies vertigo, Denies dizziness, Denies syncope, Denies focal weakness and Denies Sensory deficit (Neuro) Psychiatric: Psychiatric: Reports no additional psychiatric complaints and Reports as per HPI Endocrine: Endocrine: Reports no additional endocrine complaints and Reports as per HPI Hematologic/Lymphatic: Hematologic/Lymphatic: Reports no additional hematologic/lymphatic complaints and Reports as per HPI Allergic/Immunologic: Allergic/Immunologic: Reports no additional allergic/immunologic complaints and Reports as per HPI [facility] Past Medical History Medical History Acute encephalopathy Acute ischemic stroke Atrial fibrillation Atrial fibrillation with rapid ventricular response Cataracts, bilateral CSF pleocytosis Dehydration DVT prophylaxis Elevated troponin Hyperbilirubinemia Hyperosmolar (nonketotic) coma Hypertension Hypertension Hypertensive emergency Nephrolithiasis Volume overload Surgical History Surgical History H/O cardiac radiofrequency ablation Family History Family History Mother Diabetes mellitus Social History Social History Smoking status: Former smoker Tobacco type: cigarettes Additional smoking assessment comments: Smokes in high school. Alcohol intake: former Substance use: never Gender identity (if verbalized by the patient): Male Spiritual care concerns: No Meds Home Medications and Allergies Home Medications Medication Instructions Recorded Confirmed Type Eliquis 5 mg PO BID 12/05/19 02/01/21 History bianca
[2021-02-01 20:10] LABS: Troponin I 0.071 ng/mL (0.000-0.034)
[2021-02-01] MEDS: POTASSIUM CHLORIDE 20 MEQ PACKET (FOR LIQUID) PO (20:26)
[2021-02-01 21:17] VITALS: BP 134/79; PULSE 97; RESP 18; O2SAT 96
[2021-02-01 21:53] VITALS: BP 117/87; PULSE 74; RESP 18; TEMP 36.6; O2SAT 97; BMI 37.0
--- NOTE | 2021-02-01 23:01 | ADMGEN ---
This patient, Jose A Rodarte, was admitted to IMU Room 209-01. Patient/family oriented to hospital policies and general routines including ID bracelet, bed and alarms, visiting hours, pain management, procedures, bathroom and other care routines, personal items, smoking policy, room service/diet, and visiting hours. Information on how to activate the Rapid Response Team has been discussed. Patient/Family are encouraged to report perceived risks to care and to ask questions if they do not understand what they are told or what they should do.
[2021-02-01 23:23] VITALS: PULSE 74; RESP 18; O2SAT 97
[2021-02-01 23:44] VITALS: PULSE 99
[2021-02-02] VITALS (16 sets, daily range): BP systolic 115–214; BP diastolic 72–124; PULSE 47–102; RESP 12–20; TEMP 36.3–36.6; O2SAT 94–97
--- NOTE | 2021-02-02 | ECG_ITS ---
Measurements Intervals [place] Rate: 101 P: RI: 0 QRS: -23 QRSD: 108 T: -29 QT: 387 QTc: 502 Interpretive Statements ATRIAL FLUTTER/TACHYCARDIA WITH RAPID VENTRICULAR RESPONSE DELAYED PRECORDIAL R/S TRANSITION LEFT VENTRICULAR HYPERTROPHY AND ST-T CHANGE BASELINE ARTIFACT- I, II, AVR, AVL, V1-V6 ABNORMAL ECG Electronically Signed On 02-02-2021 16:34:52 [employer]ENTICE by Jorge Mazariegos D.O.
[2021-02-02 00:03] LABS: Troponin I 0.094 ng/mL (0.000-0.034)
[2021-02-02 05:20] LABS: Basophils Absolute Auto 0.1 K/mm3 (0.0-0.1); Eosinophils Absolute Auto 0.2 K/mm3 (0-0.3); Eosinophils Percent Auto 2.2 % (0-4.4); Hematocrit 42.8 % (42.0-52.0); Hemoglobin 15.2 g/dL (14.0-18.0); Immature Granulocyte Absolute 0.02 K/mm3 (0.00-0.031); Immature Granulocyte Percent A 0.3 % (0-0.5); Lymphocytes Absolute Auto 1.36 K/mm3 (0.9-3.2); Lymphocytes Percent Auto 20.3 % (18.3-44.2); Mean Corpuscular HGB Conc 35.5 g/dl (32-36); Mean Corpuscular Hemoglobin 31.5 pg (26-34); Mean Corpuscular Volume 88.8 fl (80-100); Mean Platelet Volume 10.9 fl (7.4-10.4); Monocytes Absolute Auto 0.7 K/mm3 (0.1-0.6); Neutrophils Absolute Auto 4.4 K/mm3 (1.3-6.7); Neutrophils Percent Auto 65.2 % (45.5-73.1); Platelet Count Result 167 k/mm3 (150-375); Red Blood Count 4.82 M/mm3 (4.6-6.20); Red Cell Distribution Width 13.2 % (11.5-14.5); White Blood Count 6.7 K/mm3 (4.5-10.0)
[2021-02-02] MEDS: LEVOTHYROXINE SODIUM 50 MCG TABLET PO (05:24)
[2021-02-02 05:36] LABS: Alanine Aminotransferase 25 U/L (4-50); Albumin Level 3.7 g/dL (3.5-5.1); Alkaline Phosphatase 93 U/L (38-126); Anion Gap 11 mmol/L (8-16); Aspartate Amino Transferase 24 U/L (17-59); Bilirubin,Total 0.9 mg/dL (0.2-1.3); Blood Urea Nitrogen 21 mg/dL (9-20); Calcium 8.7 mg/dL (8.4-10.2); Carbon Dioxide 23 mmol/L (22-30); Chloride 104 mmol/L (98-107); Estimated CRCL calculation 51 ml/min; Estimated Glomerular Filt Rate 46; Glucose 269 mg/dL (65-110); Potassium 3.2 mmol/L (3.4-5.0); Sodium 138 mmol/L (137-145)
[2021-02-02 07:56] LABS: Glucose Point of Care 207 mg/dl (65-105)
[2021-02-02] MEDS: ATORVASTATIN 40 MG TABLET 80 MG PO (08:41)
[2021-02-02] MEDS: APIXABAN 5 MG TABLET PO (08:41)
[2021-02-02] MEDS: lisinopriL 20 MG TABLET 40 MG PO (08:42)
[2021-02-02] MEDS: POTASSIUM CHLORIDE 20 MEQ TABLET 60 MEQ PO (08:56)
--- NOTE | 2021-02-02 09:28 | PM.CNCAR ---
Assessment and Plan Assessment and plan (1) Atrial fibrillation with rapid ventricular response: Code(s): I48.91 - Unspecified atrial fibrillation Status: Acute Assessment and Plan: Despite ablation and cardioversion, he unfortunately comes back to the hospital with atrial fibrillation/flutter with rapid ventricular response. Heart rate is better controlled at this point in time but will keep him NPO. Plan for cardioversion later this morning. I did talk to him about the risks benefits alternatives including risk of shocking into more problematic heart rhythm, , adverse reaction to anesthesia, skin irritation or burn. He verbalized understanding and is willing to proceed. He is on Eliquis chronically and has not missed any doses. Rachid is not needed. Continue Eliquis. (2) Elevated troponin: Code(s): R77.8 - Other specified abnormalities of plasma proteins Status: Acute Assessment and Plan: His troponin elevation is a bit concerning given his multitude of risk factors as well as his symptoms of bilateral arm numbness. Ischemic workup is warranted and needed. This is in addition to the fact that further antiarrhythmic therapy may be needed and to help guide decision making. Will schedule Lexiscan myocardial perfusion study as he cannot exercise on a treadmill because of knee pain. (3) Hypertension associated with diabetes: Code(s): E11.59 - Type 2 diabetes mellitus with other circulatory complications; I15.2 - Hypertension secondary to endocrine disorders Status: Acute Assessment and Plan: Continue his benazepril, diltiazem (4) Hyperlipidemia associated with type 2 diabetes mellitus: Code(s): E11.69 - Type 2 diabetes mellitus with other specified complication; E78.5 - Hyperlipidemia, unspecified Status: Acute Assessment and Plan: Continue statin (5) Chronic anticoagulation: Code(s): Z79.01 - custodial (current) use of anticoagulants Status: Acute Assessment and Plan: He has not missed any doses of Eliquis. This will be continued (6) Hypokalemia: Code(s): E87.6 - Hypokalemia Status: Acute Assessment and Plan: He is significantly hypokalemic and will give him 60 mEq p.o. potassium x1 now prior to his cardioversion. History of Present Illness History of Present Illness Consult date/time: 02/02/21 09:28 Requesting physician: Montrell Garcia DO Consult reason: atrial fibrillation Reason For Visit: atrial fibrillation new onset, elevated troponin, Narrative: Date of service 02/02/2021 Reason consultation: Atrial fibrillation/flutter Requesting provider Dr. Garcia History: Patient is a 70-year-old male patient of Dr. Ledesma who presents to the hospital because lightheadedness, clamminess and is simply not feeling very well. He also had some bilateral upper arm numbness. He got up yesterday 8 breakfast and felt very tired. He took a nap for 4 hours and every woke up he still was not feeling very well. He denies any chest pain, shortness of breath, syncope, paroxysmal nocturnal dyspnea, orthopnea or edema. He also denies palpitations. Because of how he was feeling, he decided to come to the hospital where he was found to be back in atrial flutter with rapid ventricular response. Troponins were also elevated. He was admitted for further workup evaluation. He does carry a longstanding history of atrial fibrillation dating back several years. He did undergo a cardioversion earlier this year and a subsequent ablation by Dr. Candelaria in July 2020. He has remained on anticoagulation since that time. He has not missed any doses. He currently feels much better today. Review of Systems Review of Systems: All systems reviewed & are unremarkable except as noted in HPI and below Constitutional: Constitutional: Denies weakness Eyes: Eyes: Denies blurry vision ENT: Reports Normal hearing present Cardiovascular
--- NOTE | 2021-02-02 09:39 | WPDMODSED ---
Moderate Sedation Note-Pt Data Patient Data Diagnosis: Atrial flutter/fibrillation Present Complaint: As above Procedure to be performed/Plan: 1. Electrical cardioversion 2. Moderate sedation Allergies Allergy/AdvReac Type Severity Reaction Status Date / Time oxycodone Allergy Mild Itching Verified 05/26/20 17:48 tramadol Allergy Mild Itching Verified 05/26/20 17:48 Home Medications Medication Instructions Recorded Confirmed Type Eliquis 5 mg PO BID 12/05/19 02/01/21 History benazepril 40 mg PO DAILY 12/05/19 02/01/21 History furosemide 40 mg PO DAILY 12/05/19 02/01/21 History blood sugar diagnostic [OneTouch #1 g 12/18/19 02/01/21 Rx Verio test strips] lancets [OneTouch Delica Plus #1 [facility] 12/18/19 02/01/21 Rx Lancet] atorvastatin 80 mg PO DAILY 02/01/21 02/01/21 History diltiazem HCl 120 mg PO DAILY 02/01/21 02/01/21 History glipizide 5 mg PO DAILY 02/01/21 02/01/21 History levothyroxine [Euthyrox] 50 mcg PO DAILY 02/01/21 02/01/21 History Current Medications: Active Medications Apixaban (Apixaban 5 Mg Tablet) 5 mg PO BID [facility] Last Admin: 02/02/21 08:41 Dose: 5 mg Documented by: Atorvastatin Calcium (Atorvastatin 40 Mg Tablet) 80 mg PO DAILY [facility] Last Admin: 02/02/21 08:41 Dose: 80 mg Documented by: Diltiazem HCl (Diltiazem Hcl Cd 120 Mg Cap.Sa.24h) 120 mg PO DAILY [facility] Last Admin: 02/02/21 08:41 Dose: 120 mg Documented by: Insulin Aspart (Insulin Aspart (*Bkc) 100 Units/Ml) 6 units 0.05 units/kg (6 units) SUB-Q TIDWM [facility] Last Admin: 02/02/21 09:04 Dose: Not Given Documented by: Levothyroxine Sodium (Levothyroxine Sodium 50 Mcg Tablet) 50 mcg PO DAILY@0630 [facility] Last Admin: 02/02/21 05:24 Dose: 50 mcg Documented by: Lisinopril (Lisinopril 20 Mg Tablet) 40 mg PO QAM [facility] Last Admin: 02/02/21 08:42 Dose: 40 mg Documented by: Sedation/Anesthesia: No previous sedation/anesthesia problems (including family history). [facility] Past Medical History Medical History Acute encephalopathy Acute ischemic stroke Atrial fibrillation Atrial fibrillation with rapid ventricular response Cataracts, bilateral Chronic anticoagulation CSF pleocytosis Dehydration DVT prophylaxis Elevated troponin Hyperbilirubinemia Hyperlipidemia associated with type 2 diabetes mellitus Hyperosmolar (nonketotic) coma Hypertension Hypertension Hypertension associated with diabetes Hypertensive emergency Nephrolithiasis Volume overload Surgical History Surgical History H/O cardiac radiofrequency ablation Family History Family History Mother Diabetes mellitus Social History Social History Smoking status: Former smoker Tobacco type: cigarettes Additional smoking assessment comments: Smokes in high school. Alcohol intake: former Substance use: never Gender identity (if verbalized by the patient): Male Spiritual care concerns: No Mod Sed Physical Exam Physical Exam Pre Procedural Exam: Normal: Appearance, Eyes, Ears, Nose, Neck, Throat, Airway, Lungs, Heart Size, Heart Rate, Neuro Exam, Abdomen, Extremities and Skin and Variation: Heart Rhythm (Regularly irregular) Hours since solid foods: 12 Hours since liquid intake: 12 Mallampati Classification: class II Internal Medicine - PN: Obj Da Vital Signs Vital Signs: Vital Signs - 24 hr 02/01/21 16:40 02/01/21 17:48 02/01/21 21:17 Temperature 35.7 C L 35.8 C L Pulse Rate 74 103 H 97 Respiratory Rate 18 12 18 Blood Pressure 139/101 H 131/76 134/79 Pulse Oximetry 97 96 96 02/01/21 21:53 02/01/21 23:23 02/01/21 23:44 Temperature 36.6 C Pulse Rate 74 74 99 Respiratory Rate 18 18 Blood Pressure 117/87 Pulse Oximetry 97 97 02/02/21 00:00 02/02/21 00:08 02/02/21 02:00 Temperature 36.6 C Pulse Rate 9
[2021-02-02] MEDS: fentaNYL CITRATE INJ (*CRX) 100 MCG/2 ML VIAL (09:50)
[2021-02-02] MEDS: MIDAZOLAM HCL (*CRX) 2 MG/2 ML VIAL 4 MG (09:50)
[2021-02-02] MEDS: hydrALAZINE HCL 20 MG/ML VIAL 10 MG IV PUSH (09:53)
--- NOTE | 2021-02-02 09:54 | WPDCARDVER ---
Cardioversion Cardioversion Date of procedure: 02/02/21 Procedure: 1. Electrical cardioversion 2. Moderate sedation Pre-op diagnosis: Atrial flutter/fibrillation Post-op diagnosis: same Indications: Atrial flutter/fibrillation Description of procedure: After discussing the risks, benefits alternatives of the procedure the patient agreeable via verbal and written informed consent. Risks discussed included skin irritation or burn, stroke, adverse reaction to anesthesia, , shock into more problematic heart rhythm. After establishing continuous telemetry monitoring, pulse oxygenation in serial blood pressure assessments, time-out was taken the procedure was started. Procedure start time 9:43 a.m. Procedure stop time 9:50 a.m. Complications: None Blood loss: None Sedation: A total of 50 micro g of fentanyl and 3 mg of Versed were given in divided dosages for moderate sedation. 10 mg of IV hydralazine was also given for blood pressure of 200/124mmHg Patient did become nauseated postprocedure and 4 mg of Zofran were given IV x1 Medications were administered patient was monitored by Mai Logan RN Findings: After confirming atrial fibrillation/flutter, 200 joules of synchronized biphasic energy was used to restore sinus rhythm/sinus bradycardia. Conclusion: Successful episcopalian of sinus rhythm/sinus bradycardia using 200 joules of synchronized biphasic energy
--- NOTE | 2021-02-02 09:58 | SUR.OPER ---
0950 - Pt BP still elevated, order noted for Hydralazine 10mg IV
[2021-02-02] MEDS: ONDANSETRON INJ 4 MG/2 ML VIAL IV PUSH (10:00)
[2021-02-02 11:48] LABS: Glucose Point of Care 251 mg/dl (65-105)
[2021-02-02] MEDS: INSULIN ASPART (*BKC) 100 UNITS/ML 6 UNITS SUB-Q (12:54)
--- NOTE | 2021-02-02 13:52 | PC.NURSE ---
On 02/02/21, the student, [Josefina Basilio], provided care and completed [facility] documentation on this patient. I have reviewed the student's documentation and agree with the findings.
--- NOTE | 2021-02-02 17:10 | PM.DS ---
DS: Admitting Diagnosis Discharge Date 02/02/21 Admitting Diagnosis Atrial fibrillation with rapid ventricular response DS: Discharge Diagnosis Discharge Diagnosis (1) Atrial fibrillation with rapid ventricular response: Code(s): I48.91 - Unspecified atrial fibrillation Status: Acute Assessment and Plan: Longstanding history, s/p cardioversion in June 2020 and subsequent ablation in July 2020. He has been anticoagulated with Eliquis since that time. He presented with dizziness and was found to be in atrial fibrillation with rapid ventricular response. He was seen in consultation by Cardiology. He underwent cardioversion on 02/02/2021 which was successful in sinus rhythm was restored. He will continue diltiazem 120 mg p.o. daily and Eliquis 5 mg b.i.d. Follow-up with cardiology as an outpatient (2) Elevated troponin: Code(s): R77.8 - Other specified abnormalities of plasma proteins Status: Acute Assessment and Plan: Troponin was elevated up to 0.094. He was seen in consultation by Cardiology regarding this, noted to have many risk factors for ischemia. He requires outpatient ischemic workup and was scheduled for Lexiscan myocardial perfusion study for which he will follow-up with cardiology. (3) Hypertension: Code(s): I10 - Essential (primary) hypertension Status: Acute Assessment and Plan: Blood pressure reviewed and was resume on presentation. He did have significant BP elevation during cardioversion but this improved. BP 144/88 at time of discharge. Continue benazepril and diltiazem. (4) Acute renal insufficiency: Code(s): N28.9 - Disorder of kidney and ureter, unspecified Status: Acute Assessment and Plan: Seems to be acute on chronic. Creatinine was 1.5, consistent with several other readings over the past year.. Discussed with Cardiology. At this point, he needs to remain on benazepril and furosemide despite renal function, which has been largely unchanged since November 2019. He will need to have a repeat BMP in 1 week. Follow-up with PCP. Consider referral to Nephrology if no improvement. (5) T2DM (type 2 diabetes mellitus): Code(s): E11.9 - Type 2 diabetes mellitus without complications Status: Acute Assessment and Plan: No recent updated A1c. Glucose range 150-250 during admission. Managed with Accu-Cheks, sliding scale insulin, hypoglycemic protocol. Continue home regimen of glipizide 5 mg daily. He needs to follow-up with his PCP for A1c evaluation. Instructed to monitor blood sugars with meals and at bedtime and record for review by PCP (6) Hypokalemia: Code(s): E87.6 - Hypokalemia Status: Acute Assessment and Plan: Potassium levels were slightly decreased. Review of prior labs indicates this to be a somewhat persistent problem. Continue potassium chloride 20 mEq p.o. daily and repeat BMP in 1 week. DS: Summary Hospital Course Hospital Course: Date of admission: 02/01/2021 Date of discharge: 02/02/2021 Jose A Blanco is a 70-year-old male with a history of atrial fibrillation s/p cardioversion and ablation, CVA, hypertension, hyperlipidemia, diabetes mellitus who presented to the emergency department on 02/01/2021 with complaints of lightheadedness and general feeling of being unwell. On presentation to the emergency department, his blood pressure was elevated at 130 9/101, additional vital signs stable, CBC unremarkable, potassium 3.3, creatinine 1.5, troponin 0.051, CXR with no acute cardiopulmonary findings, head CT with no acute findings, and EKG with atrial fibrillation with heart rate of 104. He was admitted to the hospitalist service for further evaluation and management was seen in consultation by cardiology. Please see above for further details. Sinus rhythm was restored following cardioversion. Blood pressure was stable. He tolerated the procedure well and was
== END 2021-02-02 16:44 | disposition home or self-care (01) | DRG 310 ==
LOC: ANHED 19:49 → ANHIMU 19:57
PROVIDERS: Emergency Medicine; Internal Medicine Cardiovascular Disease; Physician Assistant; Admitting Provider Internal Medicine; Emergency Provider Emergency Medicine; PCP Physician Assistant; Visit Provider Internal Medicine
PROC: 5A2204Z Restoration of Cardiac Rhythm, Single (ICD-10-PCS; principal; 2021-02-02 09:30)
DX: I48.91 Unspecified atrial fibrillation (principal); I48.92 Unspecified atrial flutter; R77.8 Other specified abnormalities of plasma proteins; E11.59 Type 2 diabetes mellitus with other circulatory complications; I15.2 Hypertension secondary to endocrine disorders; E11.22 Type 2 diabetes mellitus with diabetic chronic kidney disease; N18.9 Chronic kidney disease, unspecified; E11.69 Type 2 diabetes mellitus with other specified complication; E78.5 Hyperlipidemia, unspecified; E11.36 Type 2 diabetes mellitus with diabetic cataract; H26.9 Unspecified cataract; E03.9 Hypothyroidism, unspecified; E87.6 Hypokalemia; Z28.21 Immunization not carried out because of patient refusal; Z79.01 Long term (current) use of anticoagulants; Z79.84 Long term (current) use of oral hypoglycemic drugs; Z79.899 Other long term (current) drug therapy; Z87.891 Personal history of nicotine dependence; Z86.73 Personal history of transient ischemic attack (TIA), and cerebral infarction without residual deficits
CPT/HCPCS: 36415; 70450; 71046; 80053; 81001; 82948; 83690; 84484; 85025; 85610; 85730; 92960; 93005; 96374; 96375; 99285; A9270; G0378; J0360; J1815; J2250; J2405; J3010; J7040

== ENCOUNTER 2022-11-20 07:45 | Emergency (ER) | payer MEDICARE, SELFPAY ==
--- NOTE | ~2022-11-20 | XR_ITS ---
XR knee RT 3V 11/20/2022 09:34 Indication: Right knee pain after fall Procedure: 3 views right knee Comparison: No prior studies for comparison. Findings: Moderate osteoarthritis of the right knee. No fracture or traumatic malalignment. No joint effusion. No foreign bodies. Impression: 1: No acute fracture. Reviewed, dictated and finalized at location L. Impression: 1: No acute fracture.
--- NOTE | ~2022-11-20 | CT_ITS ---
EXAMINATION: CT brain wo con DATE: 11/20/2022 09:28 INDICATION: Head injury. TECHNIQUE: Computed tomography (CT) of the head was performed without intravenous contrast. The mA wa s adjusted according to patient size. Iterative reconstruction technique was employed. The dose-lengt h product was 756.67 mGy-cm. COMPARISON: Head CT 02/01/2021 FINDINGS: There are old infarcts involving the bilateral basal ganglia, right internal capsule, bilat eral thalami, bilateral deep peraza-white matter, and yoanna. There are scattered areas of low attenuatio n in the cerebral white matter, likely chronic small vessel ischemic disease. The ventricles are norm al in size. The orbits are normal. There is mild mucosal thickening in the ethmoid sinuses. The masto id air cells are normal. IMPRESSION: 1. Old infarcts in the brain. Reviewed, dictated and finalized at location A.
--- NOTE | ~2022-11-20 | XR_ITS ---
EXAMINATION: XR shoulder RT min 2V DATE: 11/20/2022 08:31 INDICATION: Right shoulder injury and pain. TECHNIQUE: 4 views of right shoulder were obtained. COMPARISON: None. FINDINGS: Bone alignment is normal. No fracture. There is mild osteoarthritis of glenohumeral joint a nd acromioclavicular joint. IMPRESSION: 1. Polyarticular osteoarthritis. Reviewed, dictated and finalized at location A.
[2022-11-20 07:56] VITALS: BP 162/107; PULSE 83; RESP 12; TEMP 36.6; O2SAT 96
[2022-11-20 07:58] VITALS: BP 162/107; PULSE 92; O2SAT 95
[2022-11-20 08:02] VITALS: BP 146/107; PULSE 81; O2SAT 96
[2022-11-20 08:31] VITALS: BP 134/94; PULSE 88; O2SAT 96
--- NOTE | 2022-11-20 09:15 | ED.GENADULT ---
HPI - General Adult General Chief complaint: Extremity Injury, Upper Stated complaint: shoulder pain Time Seen by Provider: 11/20/22 07:58 History of Present Illness HPI narrative: 72-year-old male presented to ED for evaluation after having a fall this morning. Patient was walking the dog and the dog got distracted by a passersby and the patient tripped over the dog's leash. Patient did strike his head but had no loss conscious. Patient did injure his right knee and his right shoulder. Related Data Home Medications Medication Instructions Recorded Confirmed apixaban 5 mg tablet (Eliquis) 5 mg PO BID 12/05/19 02/01/21 benazepril 40 mg tablet 40 mg PO DAILY 12/05/19 02/01/21 furosemide 40 mg tablet 40 mg PO DAILY 12/05/19 02/01/21 atorvastatin 80 mg tablet 80 mg PO DAILY 02/01/21 02/01/21 diltiazem HCl 120 mg 120 mg PO DAILY 02/01/21 02/01/21 capsule,extended release 24 hr glipizide 5 mg tablet, extended 5 mg PO DAILY 02/01/21 02/01/21 release 24 hr levothyroxine 50 mcg tablet 50 mcg PO DAILY 02/01/21 02/01/21 (Euthyrox) Allergies Allergy/AdvReac Type Severity Reaction Status Date / Time oxycodone Allergy Mild Itching Verified 11/20/22 07:46 tramadol Allergy Mild Itching Verified 11/20/22 07:46 Review of Systems Review of Systems: All systems reviewed & are unremarkable except as noted in HPI and below PMFSH Past Medical History Medical History Acute encephalopathy Acute ischemic stroke Atrial fibrillation Atrial fibrillation with rapid ventricular response Cataracts, bilateral Chronic anticoagulation CSF pleocytosis Dehydration DVT prophylaxis Elevated troponin Hyperbilirubinemia Hyperlipidemia associated with type 2 diabetes mellitus Hyperosmolar (nonketotic) coma Hypertension Hypertension Hypertension associated with diabetes Hypertensive emergency Nephrolithiasis Volume overload Surgical History Surgical History H/O cardiac radiofrequency ablation Family History Family History Mother Diabetes mellitus Social History Social History Smoking status: Former smoker Tobacco type: cigarettes Additional smoking assessment comments: Smokes in high school. Alcohol intake: former Substance use: never Gender identity (if verbalized by the patient): Male Spiritual care concerns: No Exam Narrative: APPEARANCE: Well appearing, no pain, no distress, well-nourished. HEAD: normocephalic, abrasion to right forehead. EYES: PERRLA/EOMI, conjunctivae clear. NOSE: Normal no drainage EARS:TMS clear with good light reflex. THROAT: Pharynx clear, no exudate. NECK: Supple. No adenopathy, no masses. RESPIRATORY: Airway patent, respirations nonlabored. Clear to auscultation bilaterally, no rales, rhonchi, wheezing. CARDIOVASCULAR: Regular rate and rhythm without murmurs rubs or gallops. ABDOMINAL: Soft, nontender, nondistended, normal bowel sounds MUSCULOSKELETAL: Tenderness of right shoulder with limited active range of motion, normal passive range of motion, right knee tenderness to palpation NEURO: Alert. Cranial nerves II through XII intact. Grossly intact SKIN: Warm, dry. Normal Color Course Course Emergency Course: 72-year-old male presented the ED for evaluation of right shoulder pain and right knee pain. Shoulder x-ray shows no acute fracture dislocation. Knee x-ray shows no acute fracture or dislocation. Head CT shows no acute abnormalities. Patient was provided a pouch sling for comfort for the right arm and provided follow-up with orthopedics. All question concerns were addressed. Patient family wrapped in the results of the work-up and reasons for follow-up. Vital Signs Vital signs: Vital Signs Temperature 97.8 F 11/20/22 07:56 Pulse Rate 83
[2022-11-20 10:15] VITALS: BP 146/96; PULSE 63; RESP 12; O2SAT 97
== END 2022-11-20 10:16 | disposition home or self-care (01) ==
PROVIDERS: Emergency Provider Emergency Medicine; PCP Physician Assistant
DX: S09.90XA Unspecified injury of head, initial encounter (principal); M25.561 Pain in right knee; M25.511 Pain in right shoulder; W01.0XXA Fall on same level from slipping, tripping and stumbling without subsequent striking against object, initial encounter; I48.91 Unspecified atrial fibrillation; Z86.73 Personal history of transient ischemic attack (TIA), and cerebral infarction without residual deficits; E11.9 Type 2 diabetes mellitus without complications; E78.5 Hyperlipidemia, unspecified; I10 Essential (primary) hypertension; Z79.01 Long term (current) use of anticoagulants; Z79.84 Long term (current) use of oral hypoglycemic drugs
CPT/HCPCS: 70450; 73030; 73562; 99284; A4565

== ENCOUNTER 2023-05-17 09:50 | Outpatient (CLI) | payer MEDICARE, SELFPAY ==
--- NOTE | 2023-05-17 10:06 | ECG_ITS ---
Measurements Intervals [place] Rate: 60 P: 28 AR: 186 QRS: -17 QRSD: 117 T: -19 QT: 446 QTc: 448 Interpretive Statements SINUS RHYTHM INTRAVENTRICULAR CONDUCTION DELAY BORDERLINE R WAVE PROGRESSION, ANTERIOR LEADS BORDERLINE ST-T WAVE ABNORMALITY- INFERIOR LEADS BASELINE ARTIFACT- I BORDERLINE ECG COMPARED TO ECG 02/02/2021 09:33:50 SINUS RHYTHM NOW PRESENT INTRAVENTRICULAR CONDUCTION DELAY NOW PRESENT Electronically Signed On 05-17-2023 10:35:58 CDT by Jorge Mazariegos D.O.
[2023-05-17 10:47] LABS: Basophils Absolute Auto 0.1 K/mm3 (0.0-0.1); Eosinophils Absolute Auto 0.1 K/mm3 (0-0.3); Eosinophils Percent Auto 2.3 % (0-4.4); Hematocrit 44.3 % (42.0-52.0); Hemoglobin 14.9 g/dL (14.0-18.0); Immature Granulocyte Absolute 0.03 K/mm3 (0.00-0.031); Immature Granulocyte Percent A 0.5 % (0-0.5); Lymphocytes Absolute Auto 0.84 K/mm3 (0.9-3.2); Lymphocytes Percent Auto 14.6 % (18.3-44.2); Mean Corpuscular HGB Conc 33.6 g/dl (32-36); Mean Corpuscular Hemoglobin 30.9 pg (26-34); Mean Corpuscular Volume 91.9 fl (80-100); Mean Platelet Volume 11.4 fl (7.4-10.4); Monocytes Absolute Auto 0.6 K/mm3 (0.1-0.6); Monocytes Percent Auto 9.8 % (2.6-8.5); Neutrophils Absolute Auto 4.1 K/mm3 (1.3-6.7); Neutrophils Percent Auto 71.8 % (45.5-73.1); Platelet Count Result 143 k/mm3 (150-375); Red Blood Count 4.82 M/mm3 (4.6-6.20); Red Cell Distribution Width 14.2 % (11.5-14.5); White Blood Count 5.7 K/mm3 (4.5-10.0)
[2023-05-17 10:58] LABS: Anion Gap 5 mmol/L (8-16); Blood Urea Nitrogen 23 mg/dL (9-20); Calcium 9.1 mg/dL (8.4-10.2); Carbon Dioxide 27 mmol/L (22-30); Chloride 107 mmol/L (98-107); Estimated Glomerular Filt Rate > 60; Glucose 213 mg/dL (65-110); Potassium 4.3 mmol/L (3.4-5.0); Sodium 139 mmol/L (137-145)
[2023-05-17 11:01] LABS: INR 1.3; Partial Thromboplastin Time 30.2 Seconds (22.3-36.8); Prothrombin Time 16.6 Seconds (11.1-14.7)
== END 2023-05-17 09:51 | disposition home or self-care (01) ==
LOC: ANHSURGERY 09:59
PROVIDERS: PCP Physician Assistant; Visit Provider Urology
DX: R31.9 Hematuria, unspecified (principal); I10 Essential (primary) hypertension; Z01.818 Encounter for other preprocedural examination; I45.9 Conduction disorder, unspecified
CPT/HCPCS: 36415; 80048; 85025; 85610; 85730; 87086; 93005

== ENCOUNTER 2023-05-20 14:35 | Outpatient (CLI) | payer MEDICARE, SELFPAY ==
--- NOTE | ~2023-05-20 | XR_ITS ---
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 There is a large stone in the lower pole of the left kidney measuring 1.7 cm. There is an elliptical radiodensity right upp er abdomen, likely bowel content. Moderate colonic fecal loading. Oval radiodensity overlying the right femoral head is likely external to the patient. 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. 2: Left nephrolithiasis measuring 1.7 cm. Reviewed, dictated and finalized at location L. 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 Recommend correlat ion with CT. 2: Left nephrolithiasis measuring 1.7 cm.
--- NOTE | ~2023-05-20 | CT_ITS ---
EXAMINATION: CT abdomen pelvis wo con DATE: 05/20/2023 15:12 INDICATION: Macroscopic hematuria TECHNIQUE: Computed tomography (CT) of the abdomen and pelvis was performed without intravenous contr ast. The dose-length product was 1111.06 mGy-cm. Automated exposure control and iterative reconstruct ion technique were employed. COMPARISON: CT dated 11/21/2019. FINDINGS: Small left pleural effusion with rounded atelectasis of the left lower lobe. Heart size nor mal. There is a cyst of the left hepatic lobe. The spleen, pancreas, adrenal glands and gallbladder are un remarkable. 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 There are bilateral renal cysts. There is a large nonobstructing stone in the lower pole of the left kidney measuring 1.4 cm. Bowel pattern non obstructive. Enlarged prostate gland. Bladder is decompressed. Small hiatal hernia. No acute osseous abnormality. There is mild lower thoracic and lumbar spondylosis. IMPRESSION: 1. Nonobstructing left nephrolithiasis. 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 3: Small left pleural effusion with rounded atelectasis. Reviewed, dictated and finalized at location L.
== END 2023-05-20 14:36 | disposition home or self-care (01) ==
PROVIDERS: PCP Physician Assistant; Visit Provider Urology
DX: R31.29 Other microscopic hematuria (principal); N20.0 Calculus of kidney; J90 Pleural effusion, not elsewhere classified; I71.43 Infrarenal abdominal aortic aneurysm, without rupture
CPT/HCPCS: 74018; 74176

== ENCOUNTER 2023-05-21 01:07 | Day surgery (SDC) | payer MEDICARE, SELFPAY ==
[2023-05-16 13:45] VITALS: BMI 33.2
--- NOTE | 2023-05-16 14:12 | PC.NURSE ---
Report to the Outpatient Waiting Room, entrance under the green pavilion located off [facility], at time __6:30AM on date __05/21/23 . Planned Procedure Time: ___8:30AM . Time changes happen often and if your time is changed the preop area will call you the afternoon before. - You and your visitor will be asked to self-screen and do not enter if you have any COVID symptoms. - A mask is optional within the hospital at this time. Patients may have clear liquids (water, carbonated beverages, clear teas, apple juice) until 3 hours prior to surgery with a maximum of 20 ounces. - No food from midnight until time of surgery. Take the following medications with a SIP of water the morning of surgery: ___DILTIAZEM, LEVOTHYROXINE DO NOT STOP ANY OF YOUR OTHER PRESCRIPTION MEDICATIONS PRIOR TO SURGERY ?EXCEPT THE FOLLOWING Medications to discontinue per physician ___HOLD ELIQUIS 2 DAYS PRE-OP PER DR YAN (PER PATIENT) Date to take last dose 05/18/23 Please no make-up, nail indonesian, hairspray, perfume, deodorant, or body powder the day of surgery. No jewelry (including any body piercings) or valuables the day of surgery, leave them at home. Please take a shower or bath the night before, or the morning of, surgery with an antibacterial soap. Wear comfortable, loose fitting clothing. - Jewelry must be removed prior to entering the operating room. Rings and piercings that are not removed may be cut off. - The hospital will not accept responsibility for valuables. - Please leave all valuables, including medications, at home the day of surgery. If you are going home after surgery, a licensed dray driver must drive you home. - NO public transportation without another adult if you receive anesthesia. - We recommend that an adult stay with you for 24 hours following discharge. - We also recommend that you do not drive, make important decision, drink alcoholic beverages, or take any drugs that were not prescribed by your health care provider for at least 24 hours after your discharge time. Follow any additional instructions given to you from your surgeon. If you or anyone in your household have experienced Covid symptoms in the past week, please notify your surgeon or the nurse liaison at the phone number below for possible testing. Telephone instructions given to ____PATIENT and asked if any additional questions and then verbalized understanding. Patient advised to call surgeon office or pre surgery nurse liaison [phone] if any additional questions.
[2023-05-21] VITALS (9 sets, daily range): BP systolic 117–179; BP diastolic 65–96; PULSE 53–68; RESP 10–20; TEMP 36.7–36.8; O2SAT 91–96; BMI 33.6
--- NOTE | 2023-05-21 07:19 | WPDHPUPDATE1 ---
History and Physical Update Update Date/Time: 05/21/23 07:19 History and Physical has been reviewed, including an updated exam of the patient. There are NO changes in the patient's condition. Risks, benefits, and alternatives have been discussed and questions answered. Patient agrees to proceed with procedure. Proceed with TURBT
[2023-05-21] MEDS: LACTATED RINGERS 1,000 ML 30 ML IV CONT ×2 (07:30→12:00)
[2023-05-21 07:34] LABS: INR 0.9; Prothrombin Time 12.9 Seconds (11.1-14.7)
[2023-05-21 07:43] LABS: Glucose Point of Care 198 mg/dl (65-105)
--- NOTE | 2023-05-21 08:29 | WPDANESEPPF ---
Anes - Initial Pre Proc Eval Procedure: Operation Date: 05/21/23 08:30 Proposed Procedures p Trans Urethral Resection Bladder Tumor - Tyrone Moe MD s Flexible Cystoscopy - Tyrone Moe MD Date/Time: 05/21/23 08:29 Surgeon: Tyrone Moe MD Pre Op Diagnosis: Hematuria Patient Data Age: 72 Gender: M Height: 1.75 m Weight: 103.3 kg Last Vital Signs Temp 36.8 C 05/21/23 06:05 Pulse 68 05/21/23 06:05 Resp 14 05/21/23 06:05 BP 155/84 H 05/21/23 06:05 Pulse Ox 96 05/21/23 06:05 O2 Del Method Room Air 05/21/23 06:05 Allergies Allergy/AdvReac Type Severity Reaction Status Date / Time oxycodone Allergy Mild Itching Verified 05/21/23 06:53 tramadol Allergy Mild Itching Verified 05/21/23 06:53 Home Medications Medication Instructions Recorded Confirmed Type apixaban 5 mg tablet (Eliquis) 5 mg PO BID 12/05/19 05/16/23 History benazepril 40 mg tablet 40 mg PO QAM 12/05/19 05/16/23 History furosemide 40 mg tablet 40 mg PO QAM 12/05/19 05/16/23 History blood sugar diagnostic (OneTouch #1 pkg 12/18/19 02/01/21 Rx Verio test strips) lancets 30 gauge (OneTouch Delica #1 pkg 12/18/19 02/01/21 Rx Plus Lancet) atorvastatin 80 mg tablet 80 mg PO DAILY 02/01/21 05/16/23 History diltiazem HCl 120 mg 120 mg PO QAM 02/01/21 05/21/23 History capsule,extended release 24 hr glipizide 5 mg tablet, extended 5 mg PO QAM 02/01/21 05/16/23 History release 24 hr potassium chloride 20 mEq 20 meq PO DAILY #10 tabs 02/02/21 05/16/23 Rx tablet,extended release levothyroxine 25 mcg tablet 25 mcg PO QAM 05/16/23 05/21/23 History Laboratory Tests 05/21/23 05/21/23 07:15 07:40 PT 12.9 D Seconds (11.1-14.7) INR 0.9 POC Capillary Glucose 198 H mg/dl (65-105) Patient hx anesthesia problems: none Family hx anesthesia problems: none Results Review: All pre-operative results and documents have been reviewed as part of the pre-operative evaluation. [facility] Past Medical History Medical History Acute encephalopathy Acute ischemic stroke Atrial fibrillation Atrial fibrillation with rapid ventricular response Cataracts, bilateral Chronic anticoagulation CSF pleocytosis Dehydration DVT prophylaxis Elevated troponin Hyperbilirubinemia Hyperlipidemia associated with type 2 diabetes mellitus Hyperosmolar (nonketotic) coma Hypertension Hypertension Hypertension associated with diabetes Hypertensive emergency Nephrolithiasis Volume overload Surgical History Surgical History H/O cardiac radiofrequency ablation Family History Family History Mother Diabetes mellitus Social History Social History Smoking status: Never smoker Tobacco type: cigarettes Additional smoking assessment comments: Smokes in high school. Alcohol intake: former Substance use: never Living arrangements: with family Additional living arrangements comments: Gender identity (if verbalized by the patient): Male Spiritual care concerns: No Anes - Eval Final PreProcedure Day of Procedure 05/21/23 08:29 Patient weight: obese Heart: regular rate and rhythm Lungs: decreased breath sounds Airway: Mallampati scale class II Neurological: alert and oriented Last oral intake: >/= 8 hours ASA classification: III Emergent: no Anesthetic plan: proceed Anesthesia type and monitoring: general LMA and standard monitoring Results Review: All pre-operative results and documents have been reviewed as part of the pre-operative evaluation. Informed Consent: The patient's anesthetic plan and its attendant risks and benefits were discussed with the patient/family/POA. Questions were solicited and answers provided to the s
--- NOTE | 2023-05-21 08:30 | SUR.PREOP ---
0830- Notified patient procedure start time delayed. Patient verbalized understanding and denying needs at this time.
[2023-05-21] MEDS: ceFAZolin 2 GM/D5W 50 ML 2 GM/50 ML BAG IVPB (10:15)
[2023-05-21] MEDS: LIDOCAINE HCL 2% GEL UROJET 10 ML PKG MUCOUS MEM ×2 (10:30→12:03)
--- NOTE | 2023-05-21 10:49 | P.OP_ITS ---
Procedure Note - Detailed Date of Procedure 05/21/23 Pre-op Diagnosis Bladder tumor >5 cm area Post-op Diagnosis Same Procedure Performed Transurethral resection of large bladder tumor. Surgeon Tyrone Moe MD Anesthesia General Description of Procedure Patient is taken to the operative suite correctly identified. Once anesthesia was obtained he was placed in dorsal lithotomy position and prepped and draped usual sterile fashion. Twenty-four Greenlandic resectoscope sheath was inserted into the bladder. His tumors located along the right posterior lateral wall. This was resected. The tumor itself probably measured 3 cm but the area around did made a greater than 5 cm of irregularity. This was resected sent for analysis. Rollerball was used for hemostasis. 2% viscous lidocaine was inserted into the urethra. Eighteen Greenlandic [address] was placed with 10 cc in the balloon. He was taken recovery stable condition. Patient will be discharged home with Walton catheter and have it removed on . He is to call for path results in a week. This completes dictation of this patient. Please send a copy of op note to my office Estimated Blood Loss 25 Drains Yes Packing No Pathology Yes Complications No immediate complications Condition Stable Disposition PACU
[2023-05-21 11:03] LABS: Glucose Point of Care 172 mg/dl (65-105)
[2023-05-21] MEDS: fentaNYL CITRATE INJ (*CRX) 100 MCG/2 ML VIAL 25 MCG IV PUSH (11:20)
== END 2023-05-21 13:07 | disposition home or self-care (01) ==
PROVIDERS: PCP Physician Assistant; Visit Provider Urology
PROC: 0TBB8ZZ Excision of Bladder, Via Natural or Artificial Opening Endoscopic (ICD-10-PCS; CPT 52240; principal; 2023-05-21 08:30)
PROC: 0TJB8ZZ Inspection of Bladder, Via Natural or Artificial Opening Endoscopic (ICD-10-PCS; CPT 52000; 2023-05-21 08:30)
DX: C67.2 Malignant neoplasm of lateral wall of bladder (principal); I10 Essential (primary) hypertension; E78.5 Hyperlipidemia, unspecified; I48.20 Chronic atrial fibrillation, unspecified; E66.9 Obesity, unspecified; Z68.33 Body mass index [BMI] 33.0-33.9, adult; Z79.01 Long term (current) use of anticoagulants; Z79.84 Long term (current) use of oral hypoglycemic drugs; Z98.890 Other specified postprocedural states; Z86.73 Personal history of transient ischemic attack (TIA), and cerebral infarction without residual deficits; Z82.49 Family history of ischemic heart disease and other diseases of the circulatory system
CPT/HCPCS: 52240; 36415; 82948; 85610; 88305; J0690; J1100; J2250; J2405; J2704; J3010; J7120

== ENCOUNTER 2023-09-24 13:57 | Emergency (ER) | payer MEDICARE, SELFPAY ==
[2023-09-24] VITALS (23 sets, daily range): BP systolic 130–172; BP diastolic 85–105; PULSE 74–150; RESP 10–24; TEMP 36.8; O2SAT 91–99
--- NOTE | ~2023-09-24 | XR_ITS ---
EXAMINATION: XR chest 2V DATE: 09/24/2023 14:49 INDICATION: Arrhythmia. TECHNIQUE: Frontal and lateral views of the chest were obtained. COMPARISON: Chest 2 views 02/01/2021, CT abdomen and pelvis 05/20/2023 FINDINGS: There is chronic left-sided pleural thickening. No pleural effusion. There are chronic airs pace opacities in left lower lobe, consistent with rounded atelectasis. No pneumothorax. The heart si ze is normal. IMPRESSION: 1. Chronic left-sided pleural thickening with rounded atelectasis in left lower lobe. Reviewed, dictated and finalized at location A.
--- NOTE | 2023-09-24 14:11 | ECG_ITS ---
Test Date: 2023-09-24 14:01:11 Measurements Intervals [place] Rate: 148 P: 0 NH: 0 QRS: -36 QRSD: 107 T: 260 QT: 325 QTc: 511 Interpretive Statements ATRIAL FLUTTER/TACHYCARDIA WITH RAPID VENTRICULAR RESPONSE LEFT AXIS DEVIATION BORDERLINE R WAVE PROGRESSION BORDERLINE ST-T WAVE ABNORMALITY- LATERAL LEADS BASELINE WANDER- I, II, III, AVR, AVL, AVF ABNORMAL ECG No previous ECG available for comparison Electronically Signed On 09-24-2023 15:03:58 CDT by Jorge Mazariegos D.O.
[2023-09-24 14:29] LABS: Basophils Absolute Auto 0.1 K/mm3 (0.0-0.1); Eosinophils Absolute Auto 0.1 K/mm3 (0-0.3); Eosinophils Percent Auto 1.9 % (0-4.4); Hematocrit 44.3 % (42.0-52.0); Hemoglobin 14.9 g/dL (14.0-18.0); Immature Granulocyte Absolute 0.02 K/mm3 (0.00-0.031); Immature Granulocyte Percent A 0.3 % (0-0.5); Lymphocytes Absolute Auto 0.97 K/mm3 (0.9-3.2); Lymphocytes Percent Auto 15.7 % (18.3-44.2); Mean Corpuscular HGB Conc 33.6 g/dl (32-36); Mean Corpuscular Hemoglobin 31.3 pg (26-34); Mean Corpuscular Volume 93.1 fl (80-100); Mean Platelet Volume 11.5 fl (7.4-10.4); Monocytes Absolute Auto 0.6 K/mm3 (0.1-0.6); Monocytes Percent Auto 9.5 % (2.6-8.5); Neutrophils Absolute Auto 4.4 K/mm3 (1.3-6.7); Neutrophils Percent Auto 71.6 % (45.5-73.1); Platelet Count Result 168 k/mm3 (150-375); Red Blood Count 4.76 M/mm3 (4.6-6.20); Red Cell Distribution Width 14.8 % (11.5-14.5); White Blood Count 6.2 K/mm3 (4.5-10.0)
[2023-09-24] MEDS: dilTIAZem HCl INJ 25 MG/5 ML VIAL IV PUSH (14:31)
--- NOTE | 2023-09-24 14:31 | ED.ARRPALP ---
HPI - Arrhythmia/Palpitations General Chief Complaint: Arrhythmia/Palpitations Stated Complaint: high heart rate Time Seen by Provider: 09/24/23 14:02 History of Present Illness HPI narrative: This is a 72-year-old male with a past medical history significant for hypertension, hyperlipidemia, diabetes, recurrent atrial fibrillation status post ablation and cardioversion. He has a history of congestive heart failure. Today patient presents at the request of his primary care provider. Patient was in his normal state of health and at a regular scheduled visit with his primary care provider for diabetic management, 1 that office staff knows that he was in atrial fibrillation with RVR and called EMS for assistance. Patient denies any chest pain, shortness for breath, nausea, vomiting, back pain, fever, chills, swelling, recent procedures or hospitalizations/injuries. He states he does not have any symptoms whatsoever and if he did not get sent to the ED he was not going to present today. Patient does take all his home medications including Cardizem and Eliquis. No recent titration is or changes to his medication regimen. 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 Related Data Home Medications Medication Instructions Recorded Confirmed apixaban 5 mg tablet (Eliquis) 5 mg PO BID 12/05/19 05/16/23 benazepril 40 mg tablet 40 mg PO QAM 12/05/19 05/16/23 furosemide 40 mg tablet 40 mg PO QAM 12/05/19 05/16/23 atorvastatin 80 mg tablet 80 mg PO DAILY 02/01/21 05/16/23 diltiazem HCl 120 mg 120 mg PO QAM 02/01/21 05/21/23 capsule,extended release 24 hr glipizide 5 mg tablet, extended 5 mg PO QAM 02/01/21 05/16/23 release 24 hr levothyroxine 25 mcg tablet 25 mcg PO QAM 05/16/23 05/21/23 Allergies Allergy/AdvReac Type Severity Reaction Status Date / Time oxycodone Allergy Mild Itching Verified 05/21/23 06:53 tramadol Allergy Mild Itching Verified 05/21/23 06:53 Review of Systems Review of Systems: As reviewed above in the [facility] Past Medical History Medical History Acute encephalopathy Acute ischemic stroke Atrial fibrillation Atrial fibrillation with rapid ventricular response Cataracts, bilateral Chronic anticoagulation CSF pleocytosis Dehydration DVT prophylaxis Elevated troponin Hyperbilirubinemia Hyperlipidemia associated with type 2 diabetes mellitus Hyperosmolar (nonketotic) coma Hypertension Hypertension Hypertension associated with diabetes Hypertensive emergency Nephrolithiasis Volume overload Surgical History Surgical History H/O cardiac radiofrequency ablation Family History Family History Mother Diabetes mellitus Social History Social History Smoking status: Never smoker Tobacco type: cigarettes Additional smoking assessment comments: Smokes in high school. Alcohol intake: former Substance use: never Living arrangements: with family Additional living arrangements comments: Gender identity (if verbalized by the patient): Male Spiritual care concerns: No Exam Narrative: GENERAL: [Well-appearing, well-nourished, and in no acute distress.] HEAD: [Normocephalic, atraumatic.] EYES: [PERRLA and EOMI.] ENT: Nares clear, no rhinorrhea or epistaxis. Mucous membranes moist. NECK: Supple. CHEST: [Clear to auscultation. No respiratory distress.] HEART: Irregular rate and rhythm. No murmur heard. [Normal peripheral pulses.] ABDOMEN: [Soft, nondistended], [nontender], [No rigidity or guarding] EXTREMITIES: Normal range of motion. 1+ peripheral edema symmetrically SKIN: Warm, dry, no rash. NEURO: [No focal deficits]. Alert and oriented [x3.] PSYCH: [Normal mood and affect.] Course Vital Signs
[2023-09-24 14:39] LABS: INR 1.3; Prothrombin Time 16.7 Seconds (11.1-14.7)
[2023-09-24 14:40] LABS: Partial Thromboplastin Time 30.4 Seconds (22.3-36.8)
[2023-09-24 14:41] LABS: Alanine Aminotransferase 43 U/L (6-50); Albumin Level 4.4 g/dL (3.5-5.1); Alkaline Phosphatase 85 U/L (38-126); Anion Gap 15 mmol/L (4-12); Aspartate Amino Transferase 37 U/L (17-59); Bilirubin,Total 1.1 mg/dL (0.2-1.3); Blood Urea Nitrogen 29 mg/dL (9-20); Calcium 8.9 mg/dL (8.4-10.2); Carbon Dioxide 19 mmol/L (22-30); Chloride 105 mmol/L (98-107); Estimated CRCL calculation 59 ml/min; Estimated Glomerular Filt Rate 59; Glucose 124 mg/dL (65-110); Lipase 71 U/L (23-300); Potassium 4.3 mmol/L (3.4-5.0); Sodium 139 mmol/L (137-145)
[2023-09-24 14:50] LABS: NT Pro B Type Natriuretic Pept 1790 pg/mL (19.9-100)
[2023-09-24 14:52] LABS: Troponin I < 0.012 ng/mL (0.000-0.034)
[2023-09-24] MEDS: FUROSEMIDE INJ 40 MG/4 ML VIAL IV PUSH (15:29)
--- NOTE | 2023-09-24 16:27 | PC.NURSE ---
update given to
[2023-09-24 17:29] LABS: Anion Gap 14 mmol/L (4-12); Blood Urea Nitrogen 30 mg/dL (9-20); Carbon Dioxide 21 mmol/L (22-30); Chloride 107 mmol/L (98-107); Estimated CRCL calculation 59 ml/min; Estimated Glomerular Filt Rate 59; Glucose 119 mg/dL (65-110); Potassium 3.9 mmol/L (3.4-5.0); Sodium 142 mmol/L (137-145)
--- NOTE | 2023-09-24 17:35 | ECG_ITS ---
Test Date: 2023-09-24 18:11:49 Measurements Intervals Moran Rate: 73 P: 0 ID: 0 QRS: -26 QRSD: 114 T: -18 QT: 297 QTc: 328 Interpretive Statements ATRIAL FLUTTER/TACHYCARDIA INTRAVENTRICULAR CONDUCTION DELAY LEFT VENTRICULAR HYPERTROPHY WITH ST-T CHANGE BORDERLINE R WAVE PROGRESSION, ANTERIOR LEADS NONSPECIFIC ST-T WAVE ABNORMALITY- LATERAL LEADS BASELINE ARTIFACT- I, III, AVR, AVL, AVF, V1-V2 ABNORMAL ECG Compared to ECG 09/24/2023 14:01:11 HEART RATE HAS DECREASED Electronically Signed On 09-24-2023 19:58:03 CDT by Jorge Mazariegos D.O.
[2023-09-24 17:41] LABS: Troponin I < 0.012 ng/mL (0.000-0.034)
[2023-09-24] MEDS: dilTIAZem HCl INJ 25 MG/5 ML VIAL 35 MG IV PUSH (17:55)
[2023-09-24] MEDS: dilTIAZem HCL CD 120 MG CAP.24HR PO (18:04)
== END 2023-09-24 18:35 | disposition home or self-care (01) ==
PROVIDERS: Emergency Provider Student in an Organized Health Care Education/Training Program; PCP Physician Assistant
DX: I48.20 Chronic atrial fibrillation, unspecified (principal); E78.5 Hyperlipidemia, unspecified; E11.9 Type 2 diabetes mellitus without complications; I11.0 Hypertensive heart disease with heart failure; I50.9 Heart failure, unspecified; Z79.01 Long term (current) use of anticoagulants
CPT/HCPCS: 36415; 71046; 80048; 80053; 83690; 83880; 84484; 85025; 85610; 85730; 93005; 96374; 96375; 96376; 99284; A9270; J1940

== ENCOUNTER 2023-10-23 14:30 | Outpatient (RCR) | payer MEDICARE, SELFPAY | END 2023-11-25 10:35 | disposition home or self-care (01) | LOC: ANHDMC 14:30 | PROVIDERS: PCP Physician Assistant; Visit Provider Physician Assistant | DX: E11.65 Type 2 diabetes mellitus with hyperglycemia (principal); Z71.89 Other specified counseling | CPT/HCPCS: G0108; G0109 ==

== ENCOUNTER 2023-12-11 09:04 | Outpatient (CLI) | payer MEDICARE, SELFPAY ==
[2023-12-11 09:59] LABS: Basophils Absolute Auto 0.1 K/mm3 (0.0-0.1); Basophils Percent Auto 1.1 % (0.2-1.2); Eosinophils Absolute Auto 0.2 K/mm3 (0-0.3); Hematocrit 45.7 % (42.0-52.0); Immature Granulocyte Absolute 0.02 K/mm3 (0.00-0.031); Immature Granulocyte Percent A 0.4 % (0-0.5); Immature Platelet Fraction Pct 4.7 % (0.9-11.2); Lymphocytes Absolute Auto 0.79 K/mm3 (0.9-3.2); Lymphocytes Percent Auto 14.7 % (18.3-44.2); Mean Corpuscular HGB Conc 32.8 g/dl (32-36); Mean Corpuscular Hemoglobin 30.7 pg (26-34); Mean Corpuscular Volume 93.5 fl (80-100); Monocytes Absolute Auto 0.5 K/mm3 (0.1-0.6); Monocytes Percent Auto 9.5 % (2.6-8.5); Neutrophils Absolute Auto 3.8 K/mm3 (1.3-6.7); Neutrophils Percent Auto 71.3 % (45.5-73.1); Platelet Count Result 134 k/mm3 (150-375); Red Blood Count 4.89 M/mm3 (4.6-6.20); Red Cell Distribution Width 14.7 % (11.5-14.5); White Blood Count 5.4 K/mm3 (4.5-10.0)
[2023-12-11 10:10] LABS: INR 1.2; Prothrombin Time 15.9 Seconds (11.1-14.7)
[2023-12-11 10:11] LABS: Partial Thromboplastin Time 28.1 Seconds (22.3-36.8)
[2023-12-11 10:24] LABS: Anion Gap 9 mmol/L (4-12); Blood Urea Nitrogen 20 mg/dL (9-20); Calcium 9.3 mg/dL (8.4-10.2); Carbon Dioxide 28 mmol/L (22-30); Chloride 104 mmol/L (98-107); Estimated Glomerular Filt Rate 50; Glucose 210 mg/dL (65-110); Potassium 3.7 mmol/L (3.4-5.0); Sodium 141 mmol/L (137-145)
== END 2023-12-11 09:05 | disposition home or self-care (01) ==
PROVIDERS: PCP Physician Assistant; Visit Provider Urology
DX: D49.4 Neoplasm of unspecified behavior of bladder (principal); Z01.818 Encounter for other preprocedural examination
CPT/HCPCS: 36415; 80048; 85025; 85055; 85610; 85730; 87086; 87181

== ENCOUNTER 2023-12-17 03:11 | Day surgery (SDC) | payer MEDICARE, SELFPAY ==
[2023-12-10 13:38] VITALS: BMI 31.6
--- NOTE | 2023-12-10 14:16 | PC.NURSE ---
Report to the Outpatient Waiting Room, entrance under the green pavilion located off [facility], at time ___6:15AM____ on date ____12/17/23___. Planned Procedure Time: ____8:15AM____.? Time changes happen often and if your time is changed the preop area will call you the afternoon before. - You and your visitor will be asked to self-screen and do not enter if you have any COVID symptoms. Please call surgeon if you need to reschedule. - A mask is optional within the hospital at this time. Patients may have clear liquids (water, carbonated beverages, clear teas, apple juice) until 3 hours prior to surgery with a maximum of 20 ounces. - No food from midnight until time of surgery and no smoking. Take only the following medications with a SIP of water on the morning of surgery: __AMIODARONE, CARVEDILOL, ISOSORBIDE, HYDRALAZINE, LEVOTHYROXINE DO NOT STOP ANY OF YOUR OTHER PRESCRIPTION MEDICATIONS PRIOR TO SURGERY EXCEPT THE FOLLOWING Medications to discontinue per physician ____HOLD ELIQUIS 3 DAYS PRE-OP PER DR LONG Date to take last dose 12/13/23 Please no make-up, nail gambian, hairspray, perfume, deodorant, or body powder the day of surgery.? No jewelry (including any body piercings) or valuables the day of surgery, leave them at home.? Please take a shower or bath the night before, or the morning of, surgery with an antibacterial soap.? Wear comfortable, loose fitting clothing.? Children are encouraged to wear pajamas. - Jewelry must be removed prior to entering the operating room.? Rings and piercings that are not removed may be cut off. - The hospital will not accept responsibility for valuables.? - Please leave all valuables, including medications, at home the day of surgery. If you are going home after surgery, a licensed nascar driver must drive you home.? - NO public transportation without another adult if you receive anesthesia. - We recommend that an adult stay with you for 24 hours following discharge. - We also recommend that you do not drive, make important decision, drink alcoholic beverages, or take any drugs that were not prescribed by your health care provider for at least 24 hours after your discharge time. Follow any additional instructions given to you from your surgeon. Telephone instructions given to PATIENT and asked if any additional questions and then verbalized understanding. Patient advised to call surgeon office or pre surgery nurse liaison [phone] if any additional questions.
[2023-12-17] VITALS (17 sets, daily range): BP systolic 122–190; BP diastolic 69–108; PULSE 51–68; RESP 12–18; TEMP 36.3–36.9; O2SAT 94–100
[2023-12-17] MEDS: LACTATED RINGERS 1,000 ML 30 ML IV CONT ×2 (06:30→09:41)
--- NOTE | 2023-12-17 07:00 | WPDHPUPDATE1 ---
History and Physical Update Update Date/Time: 12/17/23 07:00 History and Physical has been reviewed, including an updated exam of the patient. There are NO changes in the patient's condition. Risks, benefits, and alternatives have been discussed and questions answered. Patient agrees to proceed with procedure. Proceed with TURP
[2023-12-17 07:02] LABS: Glucose Point of Care 131 mg/dl (65-105)
[2023-12-17 07:13] LABS: INR 1.1; Prothrombin Time 14.4 Seconds (11.1-14.7)
--- NOTE | 2023-12-17 07:42 | P.PNAN_ITS ---
Anes - Initial Pre Proc Eval Procedure: Operation Date: 12/17/23 08:15 Proposed Procedures p Transurethral Resection of Prostate - Tyrone Moe MD Date/Time: 12/17/23 07:42 Surgeon: Tyrone Moe MD Pre Op Diagnosis: bladder cancer Patient Data Age: 73 Gender: M Height: 1.75 m Weight: 97 kg Allergies Allergy/AdvReac Type Severity Reaction Status Date / Time tramadol Allergy Mild Itching Verified 12/17/23 07:42 codeine Allergy Itching Verified 12/17/23 07:42 Home Medications Medication Instructions Recorded Confirmed Type apixaban 5 mg tablet (Eliquis) 5 mg PO BID 12/05/19 12/10/23 History furosemide 40 mg tablet 40 mg PO QAM 12/05/19 12/10/23 History blood sugar diagnostic (RenovagenTouch #1 pkg 12/18/19 02/01/21 Rx Verio test strips) lancets 30 gauge (OneTouch Delica #1 pkg 12/18/19 02/01/21 Rx Plus Lancet) atorvastatin 80 mg tablet 80 mg PO DAILY 02/01/21 12/10/23 History potassium chloride 20 mEq 20 meq PO DAILY #10 tabs 02/02/21 12/10/23 Rx tablet,extended release levothyroxine 25 mcg tablet 25 mcg PO QAM 05/16/23 12/10/23 History amiodarone 200 mg tablet 200 mg PO QAM 12/10/23 12/10/23 History benazepril 5 mg tablet 5 mg PO QAM 12/10/23 12/10/23 History carvedilol 25 mg tablet 12.5 mg PO BID 12/10/23 12/10/23 History dapagliflozin propanediol 10 mg 10 mg PO QAM 12/10/23 12/10/23 History tablet (Farxiga) hydralazine 50 mg tablet 50 mg PO TID 12/10/23 12/10/23 History insulin glargine 100 unit/mL (3 7 unit subcut HS 12/10/23 12/10/23 History mL) subcutaneous pen (Basaglar KwikPen U-100 Insulin) isosorbide mononitrate 30 mg 30 mg PO QAM 12/10/23 12/10/23 History tablet,extended release 24 hr spironolactone 25 mg tablet 12.5 mg PO QAM 12/10/23 12/10/23 History Laboratory Tests 12/17/23 12/17/23 06:41 07:00 PT 14.4 Seconds (11.1-14.7) INR 1.1 POC Capillary Glucose 131 H mg/dl (65-105) Patient hx anesthesia problems: none Family hx anesthesia problems: none Results Review: All pre-operative results and documents have been reviewed as part of the pre- operative evaluation. [facility] Past Medical History Medical History Acute encephalopathy Acute ischemic stroke Atrial fibrillation Atrial fibrillation with rapid ventricular response Cataracts, bilateral Chronic anticoagulation CSF pleocytosis Dehydration DVT prophylaxis Elevated troponin Hyperbilirubinemia Hyperlipidemia associated with type 2 diabetes mellitus Hyperosmolar (nonketotic) coma Hypertension Hypertension Hypertension associated with diabetes Hypertensive emergency Nephrolithiasis Volume overload Surgical History Surgical History H/O cardiac radiofrequency ablation Family History Family History Mother Diabetes mellitus Social History Social History Smoking status: Never smoker Tobacco type: cigarettes Additional smoking assessment comments: Smokes in high school. Alcohol intake: former Substance use: never Living arrangements: with family Additional living arrangements comments: Gender identity (if verbalized by the patient): Male Spiritual care concerns: No Anes - Eval Final PreProcedure Day of Procedure 12/17/23 07:42 Patient weight: obese Heart: regular rate and rhythm Lungs: clear to auscultation Airway: Mallampati scale class II Neurological: alert and oriented Last oral intake: >/= 8 hours ASA classification: III Emergent: no Anesthetic plan: proceed Anesthesia type and monitoring: general GIVS and standard monitoring Results Review: All pre-operative results and documents have been reviewed as part of the pre- operative evaluation. Informed Consent: The patient's anesthetic plan and its attendant risks and benefits were discussed with the patient/family/POA. Questions were solicited and answers provided to the satisfaction of the patient/family/POA.
[2023-12-17] MEDS: ceFAZolin 2 GM/D5W 50 ML 2 GM/50 ML BAG IVPB (08:00)
[2023-12-17] MEDS: LIDOCAINE HCL 2% GEL UROJET 10 ML PKG MUCOUS MEM (08:12)
--- NOTE | 2023-12-17 08:56 | W.PM.PROC2 ---
Procedure Note - Detailed Date of Procedure 12/17/23 Pre-op Diagnosis Lesion in prostatic urethra Post-op Diagnosis Same Procedure Performed TURP Surgeon Tyrone Moe MD Anesthesia General Description of Procedure The patient was brought to the operative suite where he is prepped and draped in routine sterile fashion while in the dorsal lithotomy position after the uneventful induction of a [general LMA/spinal] anesthetic. A 24 Romansh resectoscope sheath was placed into his bladder. He had no urethral strictures. 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 The bladder itself was endoscopically normal, showing no mucosal hyperemia, intravesical neoplasm or foreign bodies. There was a single, orthotopic ureteral orifice bilaterally. These orifices were identified and preserved throughout the remainder of the procedure. For the lesion at the 12 o'clock position was resected and sent off for analysis. Attention was turned to resection of the median lobe . This resection was undertaken from the bladder neck to the verumontanum and carried out until the transverse fibers of the bladder neck were identified. The left lateral lobe was then resected starting at the 6 o'clock position, working counter clockwise to the 12 o'clock position. Again, resection was carried out from the bladder neck to the verumontanum until the capsular fibers of the prostate were identified. The right lateral lobe was resected in a similar fashion starting at the 6 o'clock position working clockwise to the 12 o'clock position and carried out until the capsular fibers of the prostate were identified. Apical tissue was then circumferentially resected. All chips were evacuated from the bladder using an [employer] evacuator. Hemostasis was obtained with electric cautery. The ureteral orifices were again inspected and found to be without injury. Estimated blood loss throughout this procedure was [50]cc . 2% viscous lidocaine was inserted into the urethra to 24 Romansh 3 was placed with 30 cc in the balloon. The patient was taken to recovery room having tolerated this well. Estimated Blood Loss 50 Drains Yes Packing No Pathology Yes Complications No immediate complications Condition Stable Disposition PACU
[2023-12-17 09:20] LABS: Glucose Point of Care 139 mg/dl (65-105)
[2023-12-17] MEDS: hydrALAZINE HCL 20 MG/ML VIAL 10 MG IV PUSH (09:31)
[2023-12-17] MEDS: fentaNYL CITRATE INJ (*CRX) 100 MCG/2 ML VIAL 25 MCG IV PUSH (09:37)
--- NOTE | 2023-12-17 10:23 | SUR.PHASEI ---
1017: RN tried to call report to the floor but that RN has to call back.
[2023-12-17] MEDS: LEVOTHYROXINE SODIUM 25 MCG TABLET PO (11:03)
[2023-12-17] MEDS: EMPAGLIFLOZIN 25 MG TABLET BY MOUTH (11:06)
[2023-12-17] MEDS: POTASSIUM CHLORIDE 20 MEQ ER TABLET PO (11:06)
[2023-12-17] MEDS: AMIODARONE HCL 200 MG TABLET PO (11:06)
[2023-12-17] MEDS: ISOSORBIDE MONONITRATE 30 MG TAB.ER.24H PO (11:07)
[2023-12-17] MEDS: DOCUSATE SODIUM 100 MG CAPSULE PO ×2 (11:07→17:01)
[2023-12-17] MEDS: ATORVASTATIN 40 MG TABLET 80 MG PO (11:08)
[2023-12-17] MEDS: lisinopriL 5 MG TABLET PO (11:08)
[2023-12-17] MEDS: carvediloL 12.5 MG TABLET PO ×2 (11:08→17:01)
[2023-12-17] MEDS: FUROSEMIDE 40 MG TABLET PO (11:09)
[2023-12-17] MEDS: hydrALAZINE HCL 50 MG TABLET PO ×3 (11:09→17:01)
[2023-12-17] MEDS: SPIRONOLACTONE 12.5 MG TABLET PO (11:09)
[2023-12-17] MEDS: DEXTROSE 5%/LACTATED RINGERS 1,000 ML 125 ML IV CONT (11:17)
[2023-12-17 11:42] LABS: Glucose Point of Care 165 mg/dl (65-105)
[2023-12-17] MEDS: ceFAZolin 1 GM/NS 50 ML 1 GM/50 ML BAG IVPB ×2 (15:55→23:16)
[2023-12-17 17:36] LABS: Glucose Point of Care 239 mg/dl (65-105)
--- NOTE | 2023-12-17 18:15 | ADMGEN ---
This patient, Jose A Blanco, was admitted to 3 [facility] Surg Room 301-01. Patient/family oriented to hospital policies and general routines including ID bracelet, bed and alarms, visiting hours, pain management, procedures, bathroom and other care routines, personal items, smoking policy, room service/diet, and visiting hours. Information on how to activate the Rapid Response Team has been discussed. Patient/Family are encouraged to report perceived risks to care and to ask questions if they do not understand what they are told or what they should do. This nurse got report from Vivian and pt arrived at 1040.
[2023-12-17 20:45] LABS: Glucose Point of Care 203 mg/dl (65-105)
[2023-12-17] MEDS: INSULIN GLARGINE (*BKC) 100 UNITS/ML 7 UNITS SUB-Q (21:45)
[2023-12-18 00:21] VITALS: BP 128/66; PULSE 59; RESP 18; TEMP 36.4; O2SAT 96
[2023-12-18 04:55] VITALS: BP 134/69; PULSE 57; RESP 16; TEMP 36.3; O2SAT 95
[2023-12-18] MEDS: LEVOTHYROXINE SODIUM 25 MCG TABLET PO (05:10)
[2023-12-18 07:06] LABS: Hematocrit 42.9 % (42.0-52.0); Hemoglobin 14.5 g/dL (14.0-18.0)
[2023-12-18 07:21] LABS: Anion Gap 11 mmol/L (4-12); Blood Urea Nitrogen 21 mg/dL (9-20); Calcium 8.9 mg/dL (8.4-10.2); Carbon Dioxide 23 mmol/L (22-30); Chloride 104 mmol/L (98-107); Estimated CRCL calculation 45 ml/min; Estimated Glomerular Filt Rate 46; Glucose 125 mg/dL (65-110); Potassium 3.8 mmol/L (3.4-5.0); Sodium 138 mmol/L (137-145)
[2023-12-18 08:09] LABS: Glucose Point of Care 135 mg/dl (65-105)
--- NOTE | 2023-12-18 08:12 | WPDUROPN2 ---
Progress Note: A&P Assessment and Plan (1) Bladder tumor: Code(s): D49.4 - Neoplasm of unspecified behavior of bladder Status: Acute Assessment and Plan: With prostatic urethral lesion. He had a resection his prostate in order to resect this area. It was located at 12:00 p.m. near the verumontanum. He is doing well at present time. Will hold the CBI. If urine remains clear will discharge later today and have the catheter removed on Saturday. Subjective Subjective Date/Time Seen: 12/18/23 08:12 Post Op day: 1 (Transurethral resection of prostate for prostatic urethral lesion) Principal diagnosis: Bladder carcinoma Interval history: Doing well at this point time. His urinalysis is clear with minimal CBI. No complaints Review of Systems Review of Systems: All systems reviewed & are unremarkable except as noted in HPI and below Exam Const: General: cooperative, comfortable and no acute distress Resp: Effort & Inspection: normal respiratory effort Cardio: Rate: regular rate Rhythm: regular rhythm Urinary Catheter: Urinary Catheter: patent and draining and urine clear Objective Data Vital Signs Vital Signs: Vital Signs - 24 hr 12/17/23 09:01 12/17/23 09:15 12/17/23 09:30 Temperature 36.6 C Pulse Rate 52 L 51 L 53 L Respiratory Rate 18 16 12 Blood Pressure 177/102 H 190/103 H 177/108 H Pulse Oximetry 100 100 96 Oxygen Delivery Simple Face Mask Simple Face Mask Room Air Oxygen Flow Rate 6 7 12/17/23 09:45 12/17/23 10:00 12/17/23 10:15 Temperature Pulse Rate 55 L 57 L 55 L Respiratory Rate 12 14 14 Blood Pressure 164/95 H 162/94 H 164/101 H Pulse Oximetry 94 95 95 Oxygen Delivery Room Air Room Air Room Air Oxygen Flow Rate 12/17/23 10:25 12/17/23 10:45 12/17/23 11:06 Temperature 36.4 C Pulse Rate 56 L 51 L 53 L Respiratory Rate 14 16 Blood Pressure 169/97 H 163/79 H Pulse Oximetry 95 97 Oxygen Delivery Room Air Oxygen Flow Rate 12/17/23 11:08 12/17/23 11:00 12/17/23 11:30 Temperature 36.3 C L 36.3 C L Pulse Rate 53 L 53 L 68 Respiratory Rate 16 16 Blood Pressure 179/100 H 152/88 H Pulse Oximetry 97 98 Oxygen Delivery Oxygen Flow Rate 12/17/23 12:30 12/17/23 17:01 12/17/23 16:21 Temperature 36.4 C L 36.4 C Pulse Rate 57 L 60 58 L Respiratory Rate 16 14 Blood Pressure 122/79 125/75 Pulse Oximetry 97 96 Oxygen Delivery Oxygen Flow Rate 12/17/23 20:35 12/17/23 20:00 12/18/23 00:21 Temperature 36.4 C L 36.4 C Pulse Rate 61 59 L Respiratory Rate 16 18 Blood Pressure 139/69 128/66 Pulse Oximetry 95 96 Oxygen Delivery Room Air Oxygen Flow Rate 12/18/23 04:55 Temperature 36.3 C L Pulse Rate 57 L Respiratory Rate 16 Blood Pressure 134/69 Pulse Oximetry 95 Oxygen Delivery Oxygen Flow Rate Intake/Output Intake/Output: Intake & Output 12/15/23 12/16/23 12/17/23 12/18/23 23:59 23:59 23:59 23:59 Intake Total 1358 600 Output Total 5750 1400 Balance -4392 -800 Meds/Results Medications: Active Medications Generic Name Dose Route Start Last Admin Trade Name Freq PRN Reason Stop Dose Admin Amiodarone HCl 200 mg 12/17/23 10:36 12/17/23 11:06 Amiodarone Hcl 200 Mg Tablet PO 200 mg QAM SUYAPA Administration Atorvastatin Calcium 80 mg 12/17/23 10:36 12/17/23 11:08 Atorvastatin 40 Mg Tablet PO 80 mg DAILY SUYPAA Administration Carvedilol 12.5 mg 12/17/23 10:36 12/17/23 17:01 Carvedilol 12.5 Mg Tablet PO 12.5 mg BID SUYAPA Administration Cephalexin HCl 500 mg 12/18/23 09:00 Cephalexin 500 Mg Capsule PO QID SUYAPA Dextrose 12.5 gm 12/17/23 11:34 Dextrose 50% 25 Gm/50 Ml Syringe IV PUSH PRN PRN Hypoglycemia Protocol Docusate Sodium 100 mg 12/17/23 10:36 12/17/23 17:01 Docusate Sodium 100 Mg Capsule PO 100 mg BID SUYAPA Administration Empagliflozin 25 mg 12/17/23 12:00 12/17/23 11:06 Empagliflozin 25 Mg Tablet BY MOUTH 25 mg DAILY SUYAPA Administration Furosemide 40 mg 12/17/23 10:36 12/17/23 11:09 Furosemide 40 Mg Tablet PO 40 mg QAM SUYAPA Administration Glucagon 1 mg 12/17/23 11:34 Glucagon For Inj 1 Mg Vial IM PRN PRN Hypoglycemia Protocol Glucose 15 gm 12/17/23 11:34 Glucose Oral Gel 15 Gm Of Glucse In 37.5 Gm Tube PO PRN PRN Hypoglycemia Protocol Hydralazine HCl 50 mg 12/17/23 10:36 12/17/23 17:01 Hydralazine Hcl 50 Mg Tablet PO 50 mg TID SUYAPA Administration Hyoscyamine 0.125 mg 12/17/23 10:36 Hyoscyamine Sulfate 0.125 Mg Tablet SUBLINGUAL Q6H PRN Bladder Spasm Dextrose 1,000 mls @ 100 mls/hr 12/17/23 11:34 Dextrose 5% 1,000 Ml IVPB PRN PRN Hypoglycemia Protocol Insulin Glargine 7 units 12/17/23 21:00 12/17/23 21:45 Insulin Glargine (*Bkc) 100 Units/Ml SUB-Q 7 units HS SUYAPA Administration Isosorbide Mononitrate 30 mg 12/17/23 10:36 12/17/23 11:07 Isosorbide Mononitrate 30 Mg Tab.Er.24h PO 30 mg QAM SUYAPA Administration Levothyroxine Sodium 25 mcg 12/17/23 10:36 12/18/23 05:10 Levothyroxine Sodium 25 Mcg Tablet PO 25 mcg DAILY@0630 SUYAPA Administration Lisinopril 5 mg 12/17/23 10:40 12/17/23 11:08 Lisinopril 5 Mg Tablet PO 5 mg QAM SUYAPA Administration Naloxone HCl 0.1 mg 12/17/23 10:36 Naloxone Hcl 0.4 Mg/Ml Vial IV PUSH Q2M PRN Opiate Reversal Ondansetron HCl 4 mg 12/17/23 10:36 Ondansetron Inj 4 Mg/2 Ml Vial IV PUSH Q12H PRN Nausea And Vomiting Potassium Chloride 20 meq 12/17/23 10:36 12/17/23 11:06 Potassium Chloride 20 Meq Er Tablet PO 20 meq DAILY SUYAPA Administration Spironolactone 12.5 mg 12/17/23 10:36 12/17/23 11:09 Spironolactone 12.5 Mg Tablet PO 12.5 mg QAM SUYAPA Administration Labs Labs: Laboratory Results - last 24 hr 12/17/23 12/17/23 12/17/23 09:18 11:30 17:20 Hgb Hct Sodium Potassium Chloride Carbon Dioxide Anion Gap BUN Creatinine Estim Creat Clear Calc Estimated GFR Glucose POC Capillary Glucose 139 H 165 H 239 H Calcium 12/17/23 12/18/23 12/18/23 19:42 05:57 07:52 Hgb 14.5 Hct 42.9 Sodium 138 Potassium 3.8 Chloride 104 Carbon Dioxide 23 Anion Gap 11 BUN 21 H Creatinine 1.50 H Estim Creat Clear Calc 45 Estimated GFR 46 L Glucose 125 H POC Capillary Glucose 203 H 135 H Calcium 8.9
[2023-12-18 08:21] VITALS: BP 141/84; PULSE 60; RESP 16; TEMP 37.1; O2SAT 94
[2023-12-18] MEDS: ATORVASTATIN 40 MG TABLET 80 MG PO (09:27)
[2023-12-18] MEDS: EMPAGLIFLOZIN 25 MG TABLET BY MOUTH (09:27)
[2023-12-18] MEDS: FUROSEMIDE 40 MG TABLET PO (09:27)
[2023-12-18] MEDS: SPIRONOLACTONE 12.5 MG TABLET PO (09:27)
[2023-12-18] MEDS: hydrALAZINE HCL 50 MG TABLET PO ×2 (09:27→11:58)
[2023-12-18] MEDS: POTASSIUM CHLORIDE 20 MEQ ER TABLET PO (09:27)
[2023-12-18] MEDS: AMIODARONE HCL 200 MG TABLET PO (09:27)
[2023-12-18] MEDS: CEPHALEXIN 500 MG CAPSULE PO ×2 (09:27→11:58)
[2023-12-18] MEDS: lisinopriL 5 MG TABLET PO (09:27)
[2023-12-18] MEDS: carvediloL 12.5 MG TABLET PO (09:27)
[2023-12-18] MEDS: DOCUSATE SODIUM 100 MG CAPSULE PO (09:27)
[2023-12-18] MEDS: ISOSORBIDE MONONITRATE 30 MG TAB.ER.24H PO (09:27)
[2023-12-18 12:03] LABS: Glucose Point of Care 176 mg/dl (65-105)
[2023-12-18 12:21] VITALS: BP 121/71; PULSE 65; RESP 16; TEMP 36.9; O2SAT 96
--- NOTE | 2023-12-18 14:12 | WPDANESPN ---
Anes - Prog Note Post-Op Date/Time: 12/18/23 14:12 Cardiovascular status: normal Respiratory status: normal Airway patency: baseline Mental status: baseline Post-Op hydration status: normal Vital Signs: Last Vital Signs Temp 36.9 C 12/18/23 12:21 Pulse 65 12/18/23 12:21 Resp 16 12/18/23 12:21 BP 121/71 12/18/23 12:21 Pulse Ox 96 12/18/23 12:21 O2 Del Method Room Air 12/17/23 20:00 O2 Flow Rate 7 12/17/23 09:15 Pain Score (VAS): 0/10 I/O: Intake & Output 12/17/23 12/18/23 12/18/23 23:59 07:59 15:59 Intake Total 168 600 240 Output Total 3650 1400 Balance -3482 -800 240 Laboratory Tests 12/18/23 05:57 12/18/23 05:57 12/17/23 12/17/23 12/18/23 17:20 19:42 05:57 Hgb 14.5 Hct 42.9 Sodium 138 Potassium 3.8 Chloride 104 Carbon Dioxide 23 Anion Gap 11 BUN 21 H Creatinine 1.50 H Estim Creat Clear Calc 45 Estimated GFR 46 L Glucose 125 H POC Capillary Glucose 239 H 203 H Calcium 8.9 12/18/23 12/18/23 07:52 11:50 Hgb Hct Sodium Potassium Chloride Carbon Dioxide Anion Gap BUN Creatinine Estim Creat Clear Calc Estimated GFR Glucose POC Capillary Glucose 135 H 176 H Calcium Post-procedural complaints: none Patient Feedback: Patient satisfied with anesthetic care.
--- NOTE | 2023-12-18 14:14 | PM.DS ---
DS: Admitting Diagnosis Discharge Date 12-18-23 Admitting Diagnosis prostatic urethral lesion DS: Discharge Diagnosis Discharge Diagnosis (1) Bladder tumor: Code(s): D49.4 - Neoplasm of unspecified behavior of bladder Status: Acute Assessment and Plan: s/p TURP to resect prostatic urethral lesion. Discharge home with davis catheter. Remove davis next week DS: Summary Hospital Course Hospital Course: Uneventful TURP. Admitted for CBI. Urine cleared over 24 hours. Will discharge home with davis and have it removed on saturday or saturday. Status at Discharge Functional status at discharge: independent ambulation Time Spent with Patient Time attestation: Total time spent providing and/or coordinating discharge services: DS: Data Data Completed and Pending Completed studies during hospitalization: Pending at discharge 12/17/23 08:16 Surgical [PTH] Routine Surgical [PTH] Routine Labs on day of discharge: Labs from last 24 hours 12/18/23 12/18/23 12/18/23 11:50 07:52 05:57 Hgb 14.5 Hct 42.9 Sodium 138 Potassium 3.8 Chloride 104 Carbon Dioxide 23 Anion Gap 11 BUN 21 H Creatinine 1.50 H Estim Creat Clear Calc 45 Estimated GFR 46 L Glucose 125 H POC Capillary Glucose 176 H 135 H Calcium 8.9 12/17/23 12/17/23 19:42 17:20 Hgb Hct Sodium Potassium Chloride Carbon Dioxide Anion Gap BUN Creatinine Estim Creat Clear Calc Estimated GFR Glucose POC Capillary Glucose 203 H 239 H Calcium Discharge Plan Discharge Patient Disposition: Home, Self-Care Discharge Instructions: discharge home with davis. Follow up next saturday or saturday for davis removal. Call for appt Patient Instructions: Apixaban (By mouth) Discharge Medications: Continued (DME) OneTouch Verio test strips Strip Qty: 1 0RF Rx Instructions: May substitute to in-stock and/or covered by insurance strips. Use As Directed (DME) lancets [OneTouch Delica Plus Lancet] 30 gauge Misc Qty: 1 0RF Rx Instructions: May substitute to in-stock and/or covered by insurance lancets. Use As Directed levothyroxine 25 mcg tablet 25 mcg PO QAM amiodarone 200 mg tablet 200 mg PO QAM isosorbide mononitrate 30 mg tablet extended release 24 hr 30 mg PO QAM spironolactone 25 mg tablet 12.5 mg PO QAM hydralazine 50 mg tablet 50 mg PO TID carvedilol 25 mg tablet 12.5 mg PO BID benazepril 5 mg tablet 5 mg PO QAM insulin glargine [Saraaglar Michelle U-100 Insulin] 100 unit/mL (3 mL) insulin pen 7 unit SUBCUT HS dapagliflozin propanediol [Farxiga] 10 mg tablet 10 mg PO QAM furosemide 40 mg Tablet 40 mg PO QAM atorvastatin 80 mg tablet 80 mg PO DAILY potassium chloride 20 mEq tablet extended release 20 meq PO DAILY Qty: 10 0RF Held Eliquis 5 mg Tablet 5 mg PO BID Hold Instructions: Resume on 12/20/23.
[2023-12-18 16:48] LABS: Glucose Point of Care 155 mg/dl (65-105)
== END 2023-12-18 17:12 | disposition home or self-care (01) ==
LOC: ANHSURGERY 05:45 → ANH3MEDSUR 10:38
PROVIDERS: PCP Physician Assistant; Visit Provider Urology
PROC: 0VT08ZZ Resection of Prostate, Via Natural or Artificial Opening Endoscopic (ICD-10-PCS; CPT 52601; principal; 2023-12-17 08:15)
DX: C68.0 Malignant neoplasm of urethra (principal); N40.0 Benign prostatic hyperplasia without lower urinary tract symptoms; N34.2 Other urethritis; I10 Essential (primary) hypertension; E78.5 Hyperlipidemia, unspecified; E11.9 Type 2 diabetes mellitus without complications; N28.9 Disorder of kidney and ureter, unspecified; N32.81 Overactive bladder; R31.29 Other microscopic hematuria; R35.0 Frequency of micturition; R35.1 Nocturia; R39.15 Urgency of urination; I48.91 Unspecified atrial fibrillation; E66.9 Obesity, unspecified; Z68.32 Body mass index [BMI] 32.0-32.9, adult; Z79.01 Long term (current) use of anticoagulants; Z79.4 Long term (current) use of insulin; Z98.890 Other specified postprocedural states; Z87.442 Personal history of urinary calculi; Z86.79 Personal history of other diseases of the circulatory system; Z86.73 Personal history of transient ischemic attack (TIA), and cerebral infarction without residual deficits
CPT/HCPCS: 52601; 36415; 80048; 82948; 85014; 85018; 85610; 88305; 88342; A9270; J0360; J0690; J1100; J1815; J2003; J2405; J2704; J3010; J7120; J7121

== ENCOUNTER 2024-05-14 14:12 | Outpatient (RCR) | payer MEDICARE, SELFPAY | END 2024-05-18 16:09 | disposition home or self-care (01) | LOC: ANHDMC 14:12 | PROVIDERS: PCP Physician Assistant; Visit Provider Physician Assistant | DX: E11.65 Type 2 diabetes mellitus with hyperglycemia (principal); Z71.89 Other specified counseling | CPT/HCPCS: G0109 ==